=== PATIENT | male | born 1940 | race Caucasian/White ===

== ENCOUNTER 2023-09-26 21:08 | Emergency (ER) | payer OTHER, SELFPAY ==
[2023-09-26 21:12] VITALS: BP 164/80
--- NOTE | 2023-09-26 22:28 | ED.GENMED ---
History of Present Illness
<MAGDA Loyd - Last Filed: 09/26/23 23:35>
General
Chief Complaint: Skin Problem
Source: patient
Time Seen by Provider: 09/26/23 21:52
Travel History
Have you traveled to any high risk areas for coronavirus over the past 14 days?: Unable to Answer
Have you had any contact with someone who has COVID-19?: No
Do you have any symptoms of coronavirus? Fever > 100 degrees, chills, cough, shortness of breath, sore throat, loss of taste or smell, muscle aches, or headache?: No
History of Present Illness
History of Present Illness:
Pt is an 82 y/o M with a PMH of arthritis, afib, and HTN. Pt states he cut the sole of his left foot shaving down a callus with a foot file. The bleeding began 8 hrs ago and stopped approximately 1.5 hours ago. He notes he tried holding pressure but
'not for very long'. He denies pain, erythema, or warmth at the site. He states he takes one 325 mg aspirin daily and denies any other blood thinners. He denies knowledge of his last tetanus shot. Pt is a former smoker and does not drink alcohol.
Past History
<MAGDA Loyd - Last Filed: 09/26/23 23:35>
Past History
ED Past Medical History: Arrthythmia (atrial fibrillation), Asthma, COPD and HTN; Negative Valvular disease
ED Past Surgical History: Cardiac and Orthopedic (arthritis)
Patient has exhibited threatening behavior?: No
Social History
Tobacco: Former smoker
Alcohol: None
Drug: None
Personal:
Living: with family
Employment: Employed
Family History
Family History: Other (ICH)
Phy Exam
<MAGDA Loyd - Last Filed: 09/26/23 23:35>
General Physical Exam
General Presentation: well appearing and no apparent distress
General age: appears stated age
General Skin: warm
General Mental: alert
Cardiovascular Exam
Cardiovascular Exam: regular rate/rhythm, no edema, no gallop and normal peripheral pulses
Pulmonary Exam
Pulmonary Exam: lungs clear, no respiratory distress, no rales, no crackles, no rhonchi, no wheezing and no cough
Neurological Exam
Neurological Exam: alert, oriented x3 and speech normal
Skin Exam
Skin Exam: normal color, warm/dry, no rash and laceration (Approximately 1.5 cm laceration on plantar surface of left MTP joint.)
Psychiatric Exam
Psychiatric Exam: normal mood/affect
Course
<MAGDA Loyd - Last Filed: 09/26/23 23:35>
Orders/Labs/Results
Orders:
Orders
09/26/23 23:12
Tetanus/Diphth/Acelpertussis [Adacel] 0.5 ml IM .ONCE ONE
Vital Signs
Initial and Last Documented VS:
Initial Vital Signs
Temp Pulse Resp BP Pulse Ox
97.7 F 66 18 164/80 97
09/26/23 21:12 09/26/23 21:12 09/26/23 21:12 09/26/23 21:12 09/26/23 21:12
Last Documented Vital Signs
Temp Pulse Resp BP Pulse Ox
97.7 F 59 18 152/71 97
09/26/23 21:12 09/26/23 23:25 09/26/23 21:12 09/26/23 23:25 09/26/23 21:12
Tiffanielt;Neeraj Plata DO - Last Filed: 09/26/23 23:27>
Orders/Labs/Results
Orders:
Orders
09/26/23 23:12
Tetanus/Diphth/Acelpertussis [Adacel] 0.5 ml IM .ONCE ONE
Vital Signs
Initial and Last Documented VS:
Initial Vital Signs
Temp Pulse Resp BP Pulse Ox
97.7 F 66 18 164/80 97
09/26/23 21:12 09/26/23 21:12 09/26/23 21:12 09/26/23 21:12 09/26/23 21:12
Last Documented Vital Signs
Temp Pulse Resp BP Pulse Ox
97.7 F 59 18 152/71 97
09/26/23 21:12 09/26/23 23:25 09/26/23 21:12 09/26/23 23:25 09/26/23 21:12
<MAGDA Loyd - Last Filed: 09/26/23 23:35>
MDM/Problems Addressed
MDM/Problems Addressed:
Laceration on plantar surface of left foot (beneath 1st MTP joint).
Chronic conditions affecting care: DM, HTN, CAD, Arrhythmia, COPD and Asthma
<MAGDA Loyd - Last Filed: 09/26/23 23:35>
*Critical Care Note
Total Time (30-74mins, 75-104mins- exclusive of procedures): Not Applicable
ED Attending Note
<MAGDA Loyd - Last Filed: 09/26/23 23:35>
-
Portions of this chart may have been created with voice recognition software.� Occasional wrong word or��sound alike� substitutions may have occurred due to the inherent limitations of voice recognition software.
<Neeraj Plata DO - Last Filed: 09/26/23 23:27>
ED Attending Note
Patient seen and examined by attending physician: Yes
I performed the substantive portion of visit, reviewed & personally made and approve the management plan that is documented in note by myself or CARMELA.: Yes
ED Attending Note:
Pleasant 82-year-old male with bleeding from a callus that he shaved down. Patient came in because he could not stop the bleeding. Patient denies any other injury. Last tetanus status is unknown. Patient was seen in conjunction with the PA
student. I have reviewed and agree with the history and treatment plan presented. On my independent physical exam, patient is awake, alert, and oriented x3, no acute distress. No respiratory distress. No blood thinners. Bleeding has stopped.
Wound appeared clear. It was cleaned and a Band-Aid was applied. Patient got a tetanus shot and the wound was wrapped in gauze. Patient discharged in improved condition.
Discharge Plan
Departure
Patient Disposition: Home (Routine Discharge)
Date of Disposition: 09/26/23
Time of Disposition: 23:13
Patient with high blood pressure during this ER visit?: Yes
Condition: Good
Discharge Problem:
Abrasion foot/toe
Instructions: Wound Care (DC), Skin Abrasions (DC), BLOOD PRESSURE
Prescriptions:
No Action
testosterone 1 % (25 mg/2.5gram) Gel In Packet
1 packet transdermal DAILY
trazodone 50 mg Tablet
25 mg PO HS
tamsulosin [Flomax] 0.4 mg Capsule
0.4 mg PO DAILY
atorvastatin [Lipitor] 40 mg Tablet
40 mg PO DAILY
amiodarone 200 mg Tablet
200 mg PO QMWF
alprazolam [Xanax] 1 mg Tablet
0.5 mg PO HS
amiodarone 100 mg Tablet
100 mg PO SUTUTHSA
budesonide-formoterol [Symbicort] 80-4.5 mcg/actuation Hfa Aerosol Inhaler
1 inh INHALATION R BID
lisinopril 20 mg Tablet
20 mg PO DAILY
Referrals:
Kathrin Underwood DO [Family Provider] -
Activity Restrictions/Additional Instructions:
It was a pleasure meeting you and taking part in your care. We hope for your continued healing and wellness.
Please read discharge instructions in their entirety. However, they are for general education and may not describe your exact diagnosis at discharge. Information on your ER visit and medical conditions were discussed with you along with appropriate
follow up information...
If indicated, please take your medications as instructed and indicated on discharge paperwork.
Please schedule a follow up appointment as directed. Call to schedule an appointment
Please return to the emergency department with ANY change in, persisting, or worsening of symptoms. If any of your symptoms do not improve, or persist, or become more severe within 6-12 hours, please return to the emergency department for further
care.
Please return to the emergency department if you develop a headache, neck pain/stiffness, fever greater than 100.4F, chest pain, shortness of breath, persistent nausea, vomiting, slurred speech, difficulty walking, numbness/tingling, weakness, signs
of infection or any other symptoms that are worrisome to you.
If you have any questions or concerns please do not hesitate to call the Hospital at or E-mail me directly at [email or web address]
Interventions
Interventions:
*Risk Screen - Suicide Last Done: 09/26/23 21:12
*General Assessment Last Done: 09/26/23 22:02
*Neglect/Abuse Screening Last Done: 09/26/23 21:12
*ED COVID-19 Vaccine History Last Done: 09/26/23 22:02
*Nursing Disposition Last Done: 09/26/23 23:25
ED-Skin Assessment Last Done: 09/26/23 23:02
Discharge Date and Time
Discharge Date/Time: 09/26/23 23:26
[2023-09-26] MEDS: ADACEL 0.5 ML IM (23:19)
[2023-09-26 23:25] VITALS: BP 152/71
== END 2023-09-26 23:26 | disposition home or self-care (01) ==
LOC: EMR 21:08
PROVIDERS: EMERGENCY PHYSICIAN Student in an Organized Health Care Education/Training Program; FAMILY PHYSICIAN Family Medicine
DX: S90.812A Abrasion, left foot, initial encounter (principal); W45.8XXA Other foreign body or object entering through skin, initial encounter; I48.91 Unspecified atrial fibrillation; J44.89 Other specified chronic obstructive pulmonary disease; I10 Essential (primary) hypertension; I25.10 Atherosclerotic heart disease of native coronary artery without angina pectoris; E11.9 Type 2 diabetes mellitus without complications; M19.90 Unspecified osteoarthritis, unspecified site; Z79.82 Long term (current) use of aspirin; Z87.891 Personal history of nicotine dependence
CPT/HCPCS: 99282; 90471; 90715

== ENCOUNTER → 2024-02-06 11:43 | Outpatient (REF) | payer OTHER, SELFPAY | LOC: RAD 11:43 | PROVIDERS: ATTENDING PHYSICIAN Internal Medicine Cardiovascular Disease; FAMILY PHYSICIAN Family Medicine | DX: I48.0 Paroxysmal atrial fibrillation (principal); Z79.899 Other long term (current) drug therapy | CPT/HCPCS: 71046 ==

== ENCOUNTER 2024-10-11 09:57 | Emergency (ER) | payer OTHER, SELFPAY ==
[2024-10-11 10:14] VITALS: BP 146/78
[2024-10-11 11:47] VITALS: BMI 26.9
[2024-10-11 11:53] VITALS: BP 151/72
--- NOTE | 2024-10-11 12:01 | ED.GENMED ---
History of Present Illness
General
Chief Complaint: Fall
Source: patient
Exam Limitations: none
Time Seen by Provider: 10/11/24 10:45
Nursing documentation reviewed up to this point in time: agreed with
History of Present Illness
History of Present Illness:
83-year-old male past medical history of asthma, COPD, A-fib presenting to the emergency department today with concerns of left-sided lateral rib discomfort over the past 5 days after a trip hitting his left ribs on the edge of a table. Ongoing
discomfort since. Denies any chest pain or shortness of breath. Denies any head trauma or additional concerns. Not on blood thinners.
Past History
Past History
ED Past Medical History: Arrthythmia (atrial fibrillation), Asthma, COPD and HTN; Negative Valvular disease
ED Past Surgical History: Cardiac and Orthopedic (arthritis)
Patient has exhibited threatening behavior?: No
Social History
Tobacco: Former smoker
Alcohol: None
Drug: None
Personal:
Living: with family
Employment: Employed
Family History
Family History: Other (ICH)
Review of Systems
Review of Systems
Allergies reviewed?: Yes
All Other Systems: ROS reviewed and negative except as documented in HPI and ROS
Phy Exam
Physical Exam
Physical Exam:
GENERAL: Alert , in no apparent distress
EYE: pupils equal and reactive
NECK: Supple, no significant adenopathy.
ENT: o/p clr, mmm.
CARDIAC: Regular rate and rhythm .
LUNGS: Left lateral rib discomfort no overlying skin changes clear breath sounds bilaterally, no acute respiratory distress, no wheezes/rales/rhonchi
ABDOMEN: Soft, without focal tenderness, no r/g, no cvat
NEUROLOGICAL: Alert and oriented, no focal neuro deficits
SKIN: Warm and dry, skin intact.
MUSCULOSKELETAL: No edema, well perfused.
PSYCH: Normal and appropriate interaction.
Course
Orders/Labs/Results
Orders:
Orders
10/11/24 10:00
Ribs, Left 3 View W/PA Chest CR [CR Ribs-left 3 Vw W/pa Chest] Urgent
Comment:
Reason For Exam: fall
Vital Signs
Initial and Last Documented VS:
Initial Vital Signs
Temp Pulse Resp Pulse Ox
98.7 F 60 20 98
10/11/24 10:12 10/11/24 10:12 10/11/24 10:12 10/11/24 10:12
Last Documented Vital Signs
Temp Pulse Resp BP Pulse Ox
98.7 F 50 18 151/72 100
10/11/24 10:12 10/11/24 11:53 10/11/24 11:53 10/11/24 11:53 10/11/24 11:53
MDM/Problems Addressed
MDM/Problems Addressed:
83-year-old male presenting to the emergency department today with concerns of left lateral rib discomfort over the past 5 days after hitting his ribs from a ground-level mechanical fall. On arrival vital signs are normal lungs are clear heart
sounds normal x-ray without obvious lung abnormalities or obvious rib fracture. Patient with likely rib contusion plan for symptomatic treatment at home. Return precautions given.
*Critical Care Note
Total Time (30-74mins, 75-104mins- exclusive of procedures): Not Applicable
ED Attending Note
-
Portions of this chart may have been created with voice recognition software.� Occasional wrong word or��sound alike� substitutions may have occurred due to the inherent limitations of voice recognition software.
Discharge Plan
Departure
Patient Disposition: Home (Routine Discharge)
Date of Disposition: 10/11/24
Time of Disposition: 12:03
Patient with high blood pressure during this ER visit?: No
Condition: Good
Covid-19: Not Applicable
Discharge Problem:
Contusion of rib
Instructions: Rib injury in adults
Prescriptions:
New
lidocaine 4 % adhesive patch,medicated
1 patch topical DAILY PRN (Reason: Pain) Qty: 5 0RF
No Action
testosterone 1 % (25 mg/2.5gram) Gel In Packet
1 packet transdermal DAILY
trazodone 50 mg Tablet
25 mg PO HS
tamsulosin [Flomax] 0.4 mg Capsule
0.4 mg PO DAILY
atorvastatin [Lipitor] 40 mg Tablet
40 mg PO DAILY
amiodarone 200 mg Tablet
200 mg PO QMWF
alprazolam [Xanax] 1 mg Tablet
0.5 mg PO HS
amiodarone 100 mg Tablet
100 mg PO SUTUTHSA
budesonide-formoterol [Symbicort] 80-4.5 mcg/actuation Hfa Aerosol Inhaler
1 inh INHALATION R BID
lisinopril 20 mg Tablet
20 mg PO DAILY
Referrals:
Kathrin Underwood DO [Family Provider] -
Activity Restrictions/Additional Instructions:
You came to the emergency department today with concerns of rib discomfort. Here you had a reassuring assessment. Please try to control your pain and symptoms should improve over the next week or so. Return for any worsening, new or concerning
symptoms.
Interventions
Interventions:
*Risk Screen - Suicide Last Done: 10/11/24 10:14
*Neglect/Abuse Screening Last Done: 10/11/24 10:14
*ED- Fall Risk Assessment Last Done: 10/11/24 11:47
*ED COVID-19 Vaccine History Last Done: 10/11/24 11:47
ED-Musculoskeletal Assessment Last Done: 10/11/24 11:47
ED- Neurological Assessment Last Done: 10/11/24 11:47
ED-Skin Assessment Last Done: 10/11/24 11:47
Discharge Date and Time
Print Language: LIBERIAN
--- NOTE | 2024-10-11 12:26 | EDRN ---
Reviewed discharge instructions with patient. Verbalized understanding. Ambulated with steady gait to the lobby.
[2024-10-11 12:31] VITALS: BP 128/70
== END 2024-10-11 12:25 | disposition home or self-care (01) ==
LOC: EMR 09:57
PROVIDERS: EMERGENCY PHYSICIAN Emergency Medicine; FAMILY PHYSICIAN Family Medicine
DX: S20.212A Contusion of left front wall of thorax, initial encounter (principal); W19.XXXA Unspecified fall, initial encounter; J44.89 Other specified chronic obstructive pulmonary disease; Z87.891 Personal history of nicotine dependence
CPT/HCPCS: 99283; 71101

== ENCOUNTER 2025-02-26 00:08 | Inpatient (IN) | payer OTHER, SELFPAY ==
[2025-02-25 15:16] VITALS: BP 133/69
[2025-02-25 15:46] LABS: Hematocrit 34.1 % (39.0-52.0); Hemoglobin 11.9 g/dL (13.0-18.0); Mean Corp Hgb Conc. 34.9 g/dL (33.0-37.0); Mean Corpuscular Volume 88.6 fL (80.0-94.0); Nucleated Red Blood Cells % 0 % (-); Platelet Count 201 10^3/uL (130-400); Red Cell Dist. Width 13.2 % (11.5-14.5)
[2025-02-25 15:52] LABS: Blood Urea Nitrogen 18 mg/dl (9-20); Calcium 9.9 mg/dl (8.4-10.2); Carbon Dioxide 22 mmol/L (22-30); Chloride 98 mmol/L (98-107); Glucose 129 mg/dl (70-99); Potassium 4.3 mmol/L (3.5-5.1); Sodium 128 mmol/L (135-145); eGFR > 60.00
[2025-02-25 19:33] VITALS: BMI 25.6
[2025-02-25 19:38] VITALS: BP 132/77
[2025-02-25 20:47] LABS: Urine Character Clear (Clear)
[2025-02-25] MEDS: NSS 1000 IV (21:24)
--- NOTE | 2025-02-25 22:22 | ED.GENMED ---
History of Present Illness
General
Chief Complaint: Crisis Evaluation
Source: patient and other (friend)
Exam Limitations: none
Time Seen by Provider: 02/25/25 19:34
Nursing documentation reviewed up to this point in time: agreed with
History of Present Illness
History of Present Illness:
Patient to ED for eval of confusion, forgetfulness, depression. According to friend, patient was seen by PCP this AM for routine examine. Patient then met his friend for lunch. Friend reports that patient was confused, repeating self, verbalizing
sadness/depression. Friend called patients PCP. Office advised friend to bring patient to ED as they felt patient was confused during exam this AM. Denies fever/chills, recent illness. No new medications but he is unsure if he is taking current
medications. Friend does not feel patient is safe at home at this point.
Past History
Past History
ED Past Medical History: Arrthythmia (atrial fibrillation), Asthma, COPD and HTN; Negative Valvular disease
ED Past Surgical History: Cardiac and Orthopedic (arthritis)
Patient has exhibited threatening behavior?: No
Social History
Tobacco: Former smoker
Alcohol: None
Drug: None
Personal:
Living: with family
Employment: Employed
Family History
Family History: Other (ICH)
Review of Systems
Review of Systems
Allergies reviewed?: Yes
All Other Systems: ROS reviewed and negative except as documented in HPI and ROS
Constitutional: Reports fatigue
EENT: Reports no symptoms
Respiratory: Reports no symptoms
Cardiac: Reports no symptoms
ABD/GI: Reports no symptoms
: Reports no symptoms
Musculoskeletal: Reports no symptoms
Skin: Reports no symptoms
Neurological: Reports weakness and other (confusion)
Psychiatric: Reports depression
Phy Exam
General Physical Exam
General Presentation: well appearing and no apparent distress
General age: appears stated age
General Skin: warm and dry
General Habitus: normal
General Mental: alert
Cardiovascular Exam
Cardiovascular Exam: regular rate/rhythm and no edema
Pulmonary Exam
Pulmonary Exam: lungs clear, no respiratory distress and chest non tender
Gastrointestinal Exam
Gastrointestinal Exam: normal bowel sounds, non tender, soft, no organomegaly and non distended
Neurological Exam
Neurological Exam: alert, CN II-XII intact, no motor deficits, no sensory deficits, speech normal, normal gait and other (repeats self)
Musculoskeletal Exam
Musculoskeletal Exam: full ROM and neuro vasc intact
Skin Exam
Skin Exam: normal color, warm/dry and no rash
Psychiatric Exam
Psychiatric Exam: depressed
Course
Orders/Labs/Results
Orders:
Orders
02/25/25 15:29
Alcohol Urgent
Basic Metabolic Panel Urgent
Complete Blood Count/With Diff Urgent
02/25/25 19:52
CT Head W/o Iv Contrast Urgent
Comment:
Reason For Exam: altered mental status
02/25/25 20:30
Urinalysis Reflex To Culture Urgent
Date Specimen was Collected: 02/25/25
Time Specimen was Collected: 20:28
02/25/25 21:11
Add On - Microbiology Urgent
Tests Added?: urine drug abuse screen
02/25/25 21:12
0.9% Sodium Chloride 1000 ml [Nss] 1,000 ml IV BOLUS
02/25/25 23:38
Admit/Transfer Patient As Directed
Co-Sign Provider:
Level of Care: Inpatient admission
Assign to:: Telemetry
Physician / Group: gene solis
Diagnosis: Acute confusion likely symptomatic hyponatremia, history of depression
Reason for Telemetry: Arrhythmia
Date to Stop Telemetry: 02/28/25
Time to Stop Telemetry: 11:00
Reason for Hospitalization: Acute confusion likely symptomatic hyponatremia, history of depression
Expected length of stay greater than two midnights?: Yes
ELOS- Estimated Length of Stay in days: 4
I certify the patient meets the requirements for IP care: Yes
Code Status As Directed
Resuscitation Status: Full Code
02/25/25 23:39
Alcohol Urgent
BMP [Basic Metabolic Panel] Urgent
02/25/25 23:40
PRN Pain Medication Management As Directed
May give lesser potent ordered pain med per pt: Yes
preference::
Protocol:: Medication orders for pain may be administered in a
manner that supports deferring to patient preference
when the pt is:
- Requesting an ordered lesser potent pain medication.
Least to most potent pain medications are defined
as: acetaminophen < NSAID < tramadol < opioids
(morphine, oxycodone, hydromorphone).
- Requesting a lesser dose of the same medication IF
ORDERED.
- Requesting a less intrusive route of administration
if both routes are prescribed by the provider (PO <
IV).
02/28/25 11:00
DC Protocol for Telemetry ONCE
Abnormal Lab Results
02/25/25 02/25/25
15:29 23:39
RBC 3.85 L 10^6/uL
(4.70-6.10)
Hgb 11.9 L g/dL
(13.0-18.0)
Hct 34.1 L %
(39.0-52.0)
Absolute Lymphs (auto) 0.8 L 10^3/uL
(1.2-3.4)
Immature Gran % 0.6 H %
(0-0.5)
Neutrophils % 76.0 H %
(42.2-75.2)
Lymphocytes % 14.8 L %
(20.5-51.1)
Sodium 128 L mmol/L 129 L mmol/L
(135-145) (135-145)
Glucose 129 H mg/dl 116 H mg/dl
(70-99) (70-99)
02/25/25 15:29
02/25/25 23:39
Vital Signs
Initial and Last Documented VS:
Initial Vital Signs
Temp Pulse Resp BP Pulse Ox
98.7 F 80 18 133/69 96
02/25/25 15:16 02/25/25 15:16 02/25/25 15:16 02/25/25 15:16 02/25/25 15:16
Last Documented Vital Signs
Temp Pulse Resp BP Pulse Ox
98.4 F 72 18 147/74 98
02/26/25 00:06 02/26/25 00:06 02/26/25 00:06 02/26/25 00:06 02/26/25 00:06
*Radiology
Radiology exam reviewed: radiology read reviewed
*Pulse Oximetry
SaO2: 100
Oxygen Mode of Delivery: Room air
Patient hypoxic: no
*Critical Care Note
Total Time (30-74mins, 75-104mins- exclusive of procedures): Not Applicable
Update Note
Update Note:
Patient brought to ED by friend for confusion, weakness. He is cooperative, but repeating self. Admits to feeling depressed but denies wanting to hurt self. He is not taking any depression medications at this time. VSS, he is afebrile. Labs
reviewed. Na 128 noted. Treated for hyponatremia 1 year ago, thought to be related to his psych medications. ALl other labs stable. CT head neg for acute findings. Will admit to hospitalist for weakness, hyponatremia. Friend requesting case
management involvement as patient lives alone, concern for safety.
ED Attending Note
-
Portions of this chart may have been created with voice recognition software.� Occasional wrong word or��sound alike� substitutions may have occurred due to the inherent limitations of voice recognition software.
Discharge Plan
Departure
Patient Disposition: Admit
Date of Disposition: 02/25/25
Time of Disposition: 22:36
Presentation/result/management discussed w/ accepting MD/DO: Hospitalist
Condition: Fair
Covid-19: Not Applicable
Discharge Problem:
Weakness, Acute hyponatremia
Interventions
Interventions:
*Risk Screen - Suicide Last Done: 02/25/25 15:12
*General Assessment Last Done: 02/25/25 15:16
*ED- Fall Risk Assessment Last Done: 02/25/25 19:33
*ED COVID-19 Vaccine History Last Done: 02/25/25 19:33
ED-Psychological Assessment Last Done: 02/25/25 19:33
--- NOTE | 2025-02-25 23:11 | HPS.HSE ---
Family Physician
-
Family Physician: Kathrin Underwood
Chief Complaint
-
Acute confusion reported depression
History of Present Illness
84-year-old male sent by PCP due to confusion, forgetfulness, depression. The patient's friend Ed called his PCP due to patient being confused, repeating self verbalizes sadness and depression. The patient is currently Stating he had nausea today
he cannot remember who he was with he does not recall his friend being here in the ER he believes he drove himself to the hospital he is unsure of his medication list believes he is not taking medication. 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 His bedside nurse states at his friend is his therapist who drove him here to the ER for evaluation.he patient denies fever, chills, chest pain, palpitations, cough, shortness of breath, abdominal pain, nausea vomiting,
diarrhea, urinary symptoms.
Patient's past medical history of hyponatremia with confusion, A-fib, asthma, COPD, HTN, arthritis, former smoker, former drinker, former marijuana use
Medical History
Past Medical History
Past Medical History: Reports Other
Additional Past Medical History:
hyponatremia with confusion
A-fib
asthma
COPD
HTN
arthritis
former smoker
Alcohol use per prior chart
Marijuana use per prior chart
Past Surgical History: Reports Other
Additional Past Surgical History:
Left tympanoplasty
Hemorrhoidectomy
Hernia repair
Right TKA
Left TKA
Sinus polypectomy
Dental implants
Social History
Tobacco: Former Smoker
Drug: Marijuana
Personal: Single
Living: Alone
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
Family History
Family History: Not pertinent
Allergies / Home Medications
Allergies reflects when Allergies were last updated in [employer].
Home Medications with original date entered in [employer]
Allergy/Medication List:
Patient cannot recall medication list
Allergies
Allergy/AdvReac Type Severity Reaction Status Date / Time
No Known Allergies Allergy Verified 02/25/25 15:16
Home Medications
amiodarone 200 mg tablet 200 mg PO QMWF 11/11/22
atorvastatin 40 mg tablet (Lipitor) 40 mg PO DAILY 11/11/22
tamsulosin 0.4 mg capsule (Flomax) 0.4 mg PO DAILY 11/11/22
testosterone 1 % (25 mg/2.5 gram) transdermal gel packet 1 packet transdermal DAILY 11/11/22
trazodone 50 mg tablet 25 mg PO HS 11/11/22
alprazolam 1 mg tablet (Xanax) 0.5 mg PO BID 03/02/23
amiodarone 100 mg tablet 100 mg PO SUTUTHSA 03/02/23
budesonide-formoterol HFA 80 mcg-4.5 mcg/actuation aerosol inhaler (Symbicort) 1 inh inhalation R BID 03/02/23
lisinopril 20 mg tablet 20 mg PO DAILY 03/02/23
Review of Systems
-
History Source: Patient and Other (ER note per friend)
A 12 point ROS was completed and negative except as noted: Yes
Constitutional: Reports Other (Confusion); Denies Fever or Chills
EENT: Denies Sore Throat or Runny Nose
Respiratory: Denies Cough or Trouble Breathing
Cardiac: Denies Chest Pain, Diaphoresis, Palpitations or Syncope
Abdomen/GI: Reports Nausea; Denies Abdominal Pain, Vomiting, Diarrhea, Constipated or Bloody Stools
: Denies Dysuria, Frequency, Flank Pain or Incontinence
Musculoskeletal: Denies Joint Pain or Edema
Skin: Denies Itching or Rash
Neurological: Denies Dizzy, Headache or Weakness
Endocrine: Reports No Symptoms
Hematologic/Lymphatic: Reports No Symptoms
Psych: Reports Calm
Physical Exam
Vital Signs
Vital Signs
Temp Pulse Resp BP Pulse Ox
97.7 F 92 18 132/77 100
02/25/25 19:38 02/25/25 19:38 02/25/25 19:38 02/25/25 19:38 02/25/25 22:35
Physical Exam
General: Other (Confusion knows his name however does not recall what he did today his friend being here in the ER how he got here); No Pain, Fever or Chills
HEENT: NormoCephalic, Anicteric, Moist mucous membranes, PERRLA, Bladen Conjunctivae and No Ptosis
Respiratory: Clear; No Wheezes, Rales or Rhonchi
Cardiac: S1/S2 and Regular Rhythm; No Murmur, Rub, Gallop or Peripheral Edema
Breast: Deferred by me
GI: Soft, Non Tender, Non Distended, Normal Bowel Sounds and No Hepatosplenomegaly
Rectal: Deferred by Provider
Genito-urinary: Deferred by me
Musculoskeletal: No Clubbing, No Cyanosis and No Edema
Skin: Warm and Dry; No Rash or Jaundice
Neuro: Awake, Alert, Oriented (To name, year, day of the week but not today's events, history, medications, friend dropping him off), Cranial Nerves Intact and No Sensory Deficits; No Slurred Speech, Facial Droop, Tremors or Sedated
Psych: Calm
Laboratory Results
-
02/25/25 15:29
02/25/25 15:29
Impression/Plan
-
Impression/plan:
Admit to telemetry
#Acute encephalopathy possibly secondary to possible symptomatic Hyponatremia
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
NA 128 appears baseline for patient
UA negative
-IV NSS 1 L was given in ER
-Will check stat BMP if NA worse would start 3% hypertonic saline at 50 cc an hour to 50 cc bag
- Check UDS, alcohol
-
CT head: No acute intracranial abnormality
-
# Reported acute depression per friend
#History anxiety depression
- Patient denies being depressed
- Continue Xanax 0.5 mg twice daily
#History of reported TIA
Continue Lipitor 40 mg daily
#HTN
Hold lisinopril 20 mg daily
BP 132/77
#Paroxysmal A-fib
- Continue amiodarone
#COPD no acute exacerbation
#Former smoker
- Continue Symbicort
#Asthma no acute exacerbation
#BPH
- Continue Flomax
DVT prophylaxis
SCDs
Full code
--- NOTE | 2025-02-25 23:45 | W.PN.UPDATE ---
Update Note
Progress Note Update
This is an addendum to H&P written by Mary Zapien on 02/25/2025. �Patient seen and examined independently with [facility] DISP[facility].
84-year-old male past medical history of paroxysmal atrial fibrillation, hyponatremia previously attributed to SIADH/SSRI, anxiety/depression, BPH, alcohol use, presenting with confusion, forgetfulness and depression. �Friend reports he was
confused, repeating himself verbalizing sadness/depression. �Primary care evaluated him and told her to come to ER. �Not taking most of his medications except Xanax.
Patient very confused about the events of today. �He is unable to remember who he lives with and what he did. �He provides inconsistent stories. �He denies being depressed.
Vital signs normal.
Labs show sodium 128 stable from [address] in [address] head shows no acute abnormality.
Patient with severe confusion/memory impairment regarding the events of today concerning for symptomatic hyponatremia. �Last BMP 1530 showed sodium of 128. �Patient received IV fluids in ER. �Recheck BMP and will benefit from hypertonic saline if
sodium is worsened after fluids.
UDS and alcohol level pending.
Consider MRI brain.
[2025-02-26] VITALS (8 sets, daily range): BP systolic 137–152; BP diastolic 61–85; PULSE 73; BMI 26.2
[2025-02-26 00:21] LABS: Blood Urea Nitrogen 16 mg/dl (9-20); Calcium 9.4 mg/dl (8.4-10.2); Carbon Dioxide 23 mmol/L (22-30); Chloride 101 mmol/L (98-107); Estimated Creatinine Clearance 84 ml/min; Glucose 116 mg/dl (70-99); Sodium 129 mmol/L (135-145); eGFR > 60.00
--- NOTE | 2025-02-26 03:35 | PTCARENOTE ---
Pt received from ED via stretcher. Ambulated to bed independently w/o incident. Telemetry - SR w/PACs. AAOx2 (time), pleasantly confused, repetitive speech. Admission intake obtained from medical record as pt denies any/all PMH documented. Also
unable to verify home meds, pt denies taking any daily medications. States 'that sounds familiar' but unreliable historian. Full physical assessment documented. Oriented to surroundings and plan of care discussed. Bed alarm active for safety.
Call villegas w/in reach.
[2025-02-26 07:24] LABS: Hematocrit 33.8 % (39.0-52.0); Hemoglobin 11.7 g/dL (13.0-18.0); Mean Corp Hgb Conc. 34.6 g/dL (33.0-37.0); Mean Corpuscular Volume 89.2 fL (80.0-94.0); Nucleated Red Blood Cells % 0 % (-); Platelet Count 199 10^3/uL (130-400); Red Cell Dist. Width 13.1 % (11.5-14.5)
[2025-02-26] MEDS: SYMBICORT 80/4.5 MCG INHALER 1 PUFF INH ×2 (07:42→19:45)
[2025-02-26 07:59] LABS: ALT (SGPT) 30 U/L (0-50); AST (SGOT) 35 U/L (17-59); Albumin 4.2 g/dl (3.5-5.0); Alkaline Phosphatase 75 U/L (38-126); Blood Urea Nitrogen 13 mg/dl (9-20); Calcium 9.6 mg/dl (8.4-10.2); Carbon Dioxide 21 mmol/L (22-30); Chloride 102 mmol/L (98-107); Estimated Creatinine Clearance 81 ml/min; Glucose 118 mg/dl (70-99); HDL Cholesterol 79 mg/dl; LDL Cholesterol, Calculated 62 mg/dl; Potassium 4.0 mmol/L (3.5-5.1); Sodium 130 mmol/L (135-145); Total Protein 6.8 g/dl (6.3-8.2); Very Low Density Lipoprotein 8 mg/dl (0-30); eGFR > 60.00
[2025-02-26 08:25] LABS: TSH 1.62 uIU/ml (0.47-4.68)
--- NOTE | 2025-02-26 08:55 | W.PN.HOSP.TC ---
Today's Communication/Plan
-
MRI Brain ordered
Assessment / Plan
Assessment / Plan
84-year-old male past medical history of paroxysmal atrial fibrillation, hyponatremia previously attributed to SIADH/SSRI, anxiety/depression, BPH, alcohol use, presenting with confusion, forgetfulness and depression. �Friend reports he was
confused, repeating himself verbalizing sadness/depression. �Primary care evaluated him and told her to come to ER. �Not taking most of his medications except Xanax.
CT head: No acute intracranial abnormality
Acute Memory Loss
-etiology unclear, doubt from sodium
-patient able to hold logical conversation with me this morning but remains confused
-will obtain MRI Brain today
-neuro checks
-give aspirin now
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
NA 128 appears baseline for patient
-IV NSS 1 L was given in ER
-Na stable at 130 this morning
Reported acute depression per friend
History anxiety/ depression
- Patient this morning open to feeling lonely
- Continue Xanax 0.5 mg twice daily, he takes this at home
- will certainly need outpatient follow up
History of reported TIA
Continue Lipitor 40 mg daily
patient is not on aspirin or NOAC at home
#HTN
Hold lisinopril 20 mg daily
BP 132/77
#Paroxysmal A-fib
- Continue amiodarone
-patient is not on oral AC
#COPD no acute exacerbation
#Former smoker
- Continue Symbicort
#Asthma no acute exacerbation
#BPH
- Continue Flomax
DVT prophylaxis
SCDs
Full code
Anticipated Discharge: Within 24 hours
Subjective/Interval History
-
Date of Service: February 26, 2025
patient able to tell me he doesn't remember conversation from last night or waking up this morning
this is new for him
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
Objective Data
-
Labs:
Laboratory Results
02/25/25 02/26/25
23:39 07:11
WBC 5.4
Hgb 11.7 L
Hct 33.8 L
Plt Count 199
Sodium 129 L 130 L
Potassium 4.0
Chloride 101 102
Carbon Dioxide 23 21 L
BUN 16 13
Creatinine 0.7 0.7
Glucose 116 H 118 H
Calcium 9.4 9.6
Total Bilirubin 0.8
AST 35
ALT 30
Alkaline Phosphatase 75
Vital Signs:
Vital Signs
Temp Pulse Resp BP Pulse Ox
97.7 F 70 18 149/73 98
02/26/25 07:00 02/26/25 07:47 02/26/25 07:47 02/26/25 07:00 02/26/25 07:47
I&O
02/25/25 02/26/25 02/27/25
06:59 06:59 06:59
Intake Total 120 / 120
Output Total 400 / 400
Balance -280 / -280
Review of Systems
-
History Source: Patient
All other systems: Reviewed and negative
Physical Exam
-
General: No Apparent Distress
HEENT: PERRLA
Respiratory: Clear to Auscultation; Negative Wheezes
Cardiac: Regular Rhythm and S1/S2
GI: Nontender
Skin: Warm and Dry; Negative Rash
Neuro: AO x 3 and Other (no facial asymmetry, speech clear; AAO x 3, no pronator drift, 5/5 strength upper and lower extremities )
Psych: Calm
Data Reviewed
-
Diagnostic Radiology: Report Reviewed by me
Labs: Labs Reviewed by me
[2025-02-26] MEDS: FLOMAX 0.4 MG PO (09:40)
[2025-02-26] MEDS: PACERONE 200 MG PO (09:40)
[2025-02-26] MEDS: XANAX 0.5 MG PO ×2 (09:40→19:52)
[2025-02-26] MEDS: LIPITOR 40 MG PO (09:40)
[2025-02-26 10:28] LABS: Vitamin B12 690 pg/ml (239-931)
[2025-02-26] MEDS: LOW STRENGTH ASPIRIN 162 MG PO (10:54)
[2025-02-26] MEDS: TUMS CHEWABLE TABLET 200 MG PO ×2 (12:23→19:48)
--- NOTE | 2025-02-26 13:05 | PTOTSP ---
The patient demonstrated independence with ambulation and elevations, no strength or mobility deficits noted. Patient's primary deficit is his cognition. No acute PT needs at this time, will sign off.
--- NOTE | 2025-02-26 16:15 | PTOTSP ---
BCAT performed with score of 16/50 indicating Moderate to severe dementia. Global impairments noted in orientation, immediate/delayed verbal recall, attention, abstraction, language, executive function, visuospatial, delayed visual memory,
immediate/delayed story recall and story recognition.
Concern for sudden onset of confusion/global impairments.
[2025-02-27 03:23] VITALS: BP 135/65
[2025-02-27 07:00] VITALS: BP 152/83
[2025-02-27 07:43] LABS: Blood Urea Nitrogen 13 mg/dl (9-20); Calcium 9.5 mg/dl (8.4-10.2); Carbon Dioxide 24 mmol/L (22-30); Chloride 99 mmol/L (98-107); Estimated Creatinine Clearance 81 ml/min; Glucose 100 mg/dl (70-99); Potassium 4.3 mmol/L (3.5-5.1); Sodium 129 mmol/L (135-145); eGFR > 60.00
[2025-02-27] MEDS: SYMBICORT 80/4.5 MCG INHALER 1 PUFF INH ×2 (07:43→18:05)
--- NOTE | 2025-02-27 08:47 | W.PN.HOSP.TC ---
Today's Communication/Plan
-
will try to obtain more information from friend and PCP
awaiting MRI
Assessment / Plan
Assessment / Plan
84-year-old male past medical history of paroxysmal atrial fibrillation, hyponatremia previously attributed to SIADH/SSRI, anxiety/depression, BPH, alcohol use, presenting with confusion, forgetfulness and depression. �Friend reports he was
confused, repeating himself verbalizing sadness/depression. �Primary care evaluated him and told her to come to ER. �Not taking most of his medications except Xanax.
CT head: No acute intracranial abnormality
Acute Memory Loss versus progression of chronic cognitive impairment
-patient has no focal deficits on exam but friend brought him in for depression and confusion.. possible that patient's confusion related to depression although currently denies feeling depressed, denies SI. He is not an SSRI candidate 2/2
hyponatremia and takes Trazodone qhs. Wondering if he took an extra Xanax at home that resulted in presentation? Unclear how off baseline patient is. I called his brother who is not close with him. I obtained a friend's contact and will call
later today. I have also reached out to PCP via TT
-given possible acute nature, will obtain MRI
-neuro checks
-continue aspirin
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
-urine studies show SIADH
-Na 129 this AM
-will start salt tabs and repeat labs tomorrow AM
Reported acute depression per friend
History anxiety/ depression
- Patient this morning denying feeling depressed and asking when he can go home
- Continue Xanax 0.5 mg twice daily, he takes this at home
- will need outpatient follow up
History of reported TIA
Continue Lipitor 40 mg daily
patient is not on aspirin or NOAC at home
#HTN
Hold lisinopril 20 mg daily
BP 132/77
#Paroxysmal A-fib
- Continue amiodarone
-patient is not on oral AC
#COPD no acute exacerbation
#Former smoker
- Continue Symbicort
#Asthma no acute exacerbation
#BPH
- Continue Flomax
DVT prophylaxis
SCDs
Full code
Anticipated Discharge: Within 24 hours
Subjective/Interval History
-
Date of Service: February 27, 2025
still awaiting MRI
patient states he feels good this morning but he remains confused
Objective Data
-
Labs:
Laboratory Results
02/27/25
06:42
Sodium 129 L
Potassium 4.3
Chloride 99
Carbon Dioxide 24
BUN 13
Creatinine 0.7
Glucose 100 H
Calcium 9.5
Vital Signs:
Vital Signs
Temp Pulse Resp BP Pulse Ox
97.8 F 82 20 135/65 98
02/27/25 03:23 02/27/25 07:46 02/27/25 07:46 02/27/25 03:23 02/27/25 07:46
I&O
02/26/25 02/27/25 02/28/25
06:59 06:59 06:59
Intake Total 120 / 120 1020 / 1020
Output Total 400 / 400
Balance -280 / -280 1020 / 1020
Review of Systems
-
History Source: Patient
All other systems: Reviewed and negative
Physical Exam
-
General: No Apparent Distress
HEENT: PERRLA
Respiratory: Clear to Auscultation; Negative Wheezes
Cardiac: Regular Rhythm and S1/S2
GI: Nontender
Skin: Warm and Dry; Negative Rash
Neuro: AO x 3 and Other (no facial asymmetry, speech clear; AAO x 3, no pronator drift, 5/5 strength upper and lower extremities )
Psych: Calm
Data Reviewed
-
Diagnostic Radiology: Report Reviewed by me
Labs: Labs Reviewed by me
[2025-02-27] MEDS: LIPITOR 40 MG PO (08:48)
[2025-02-27] MEDS: FLOMAX 0.4 MG PO (08:48)
[2025-02-27] MEDS: XANAX 0.5 MG PO ×2 (08:48→22:16)
[2025-02-27] MEDS: SODIUM CHLORIDE 1 GRAM PO ×2 (08:48→20:07)
[2025-02-27] MEDS: PACERONE 100 MG PO (08:57)
--- NOTE | 2025-02-27 10:23 | CM ---
Reviewed the chart notes and spoke with the patient at the bedside. The patient resides alone in a second floor apartment with six steps to enter. The patient reports no DME/VN/SNF in the past. The patient confirmed his pharmacy of choice is [facility]. CM continues to be available to patient/family and is monitoring medical plan for needs at discharge.
Plan: Discharge to home when medically stable. No needs identified at this time. PT no needs. OT recommends outpatient OT.
[2025-02-27 11:10] VITALS: BP 152/70
--- NOTE | 2025-02-27 12:57 | W.PN.UPDATE ---
Update Note
Progress Note Update
I was able to talk to patient's friend Bora, who reports that on Monday patient called him because he was upset he was unable to find his Xanax that he takes twice a day. Possible that benzodiazepine withdrawal led him to come to the emergency room.
I may need to prescribe Xanax on DC, plan to taper down to 0.25mg daily (discussed briefly with psychiatry).
Patient's friend, Bora, reports intermittent memory loss. Patient goes to work [place] the corner from his [facility] apartment. Takes his own medications.
Will proceed with MRI given story remains unclear and patient had an abrupt change causing him to come to the ER.
[2025-02-27 15:00] VITALS: BP 118/87
[2025-02-27 19:30] VITALS: BP 157/85
[2025-02-27 20:00] VITALS: BP 157/85
[2025-02-27] MEDS: TUMS CHEWABLE TABLET 200 MG PO (20:07)
[2025-02-27] MEDS: FLUSH (NSS) 1 FLUSH IV (20:08)
[2025-02-28 03:31] VITALS: BP 147/61
[2025-02-28 07:00] VITALS: BP 151/85
[2025-02-28 07:02] LABS: Blood Urea Nitrogen 13 mg/dl (9-20); Calcium 8.9 mg/dl (8.4-10.2); Carbon Dioxide 22 mmol/L (22-30); Chloride 97 mmol/L (98-107); Estimated Creatinine Clearance 81 ml/min; Glucose 98 mg/dl (70-99); Potassium 4.0 mmol/L (3.5-5.1); Sodium 126 mmol/L (135-145); eGFR > 60.00
[2025-02-28] MEDS: SYMBICORT 80/4.5 MCG INHALER 1 PUFF INH ×2 (07:30→18:27)
--- NOTE | 2025-02-28 08:15 | W.PN.HOSP.TC ---
Addendum entered and electronically signed by Ely Penn MD 02/28/25 15:41:
Patient will need one week script on DC to avoid another withdrawal.
Addendum entered and electronically signed by Ely Penn MD 02/28/25 15:39:
I was able to speak with RN in Dr. Underwood's office who sent patient to ER earlier this week. She states that patient was reporting he couldn't find his Xanax. They will make sure to call patient on Monday to make sure he has a follow up appointment
with a provider next week. And they likely refill Xanax prescription as he seems to have lost his recent prescription.
Original Note:
Today's Communication/Plan
-
continue fluid restriction, Nephrology consult
decrease Xanax dosing further
CM consult in for VN
left message for PCP, will call office today
brother updated. They do not talk often but brother plans to reach out.
Assessment / Plan
Assessment / Plan
84-year-old male past medical history of paroxysmal atrial fibrillation, hyponatremia previously attributed to SIADH/SSRI, anxiety/depression, BPH, alcohol use, presenting with confusion, forgetfulness and depression. �ER notes report patient came
with a friend but patient and friend, Bora, who speaks to patient every day states he came on his own. Per Bora, patient was stating he was unable to find his Xanax prior to coming in.
CT head 02/25/25: No acute intracranial abnormality
MRI 02/27/25
IMPRESSION:
No acute intracranial abnormality noted. Chronic senescent changes.
Acute Anxiety leading to confusion
-I suspect presentation secondary to severe anxiety in setting of not being able to find Xanax prescription. I received this information from patient's friend, Bora Pereyra (phone # [phone]), on our conversation on 02/27. Bora reports that patient
has had increasing memory loss. They speak every day but Bora lives in the [facility].
-MRI obtained without acute abnormality
-patient is not an SSRI candidate 2/2 hyponatremia
-patient reports only taking 1/2 Xanax pill at home occasionally. I started titration yesterday and will titrate further to 0.25mg PO BID with recommendations to continue titration as outpatient
Chronic Memory Loss, likely dementia
-per my discussion with Bora, this is a chronic issue likely exacerbated by anxiety as above and possibly by lower Na (see below)
-patient lives alone. I discussed case with CM, we can get VN
-patient does not have family that lives close by (brother lives in [place] and they are not close). I discussed with Bora, that patient will benefit from having more people check in on him once discharged.
-I left a message for PCP on TT and will call office today
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
-urine studies show SIADH
-salt tabs given for Na 129 on 02/27, but unfortunately sodium down to 126 this AM
-continue fluid restriction
-Nephrology consult
History of reported TIA
Continue Lipitor 40 mg daily
patient is not on aspirin or NOAC at home
#HTN
Hold lisinopril 20 mg daily
BP 132/77
#Paroxysmal A-fib
- Continue amiodarone
-patient is not on oral AC
#COPD no acute exacerbation
#Former smoker
- Continue Symbicort
#Asthma no acute exacerbation
#BPH
- Continue Flomax
DVT prophylaxis
SCDs
Full code
51 minutes spent on patient care
Anticipated Discharge: 24 - 48 hours
Subjective/Interval History
-
Date of Service: February 28, 2025
patient states he is feeling a lot better than yesterday
he was hoping to go home
Objective Data
-
Labs:
Laboratory Results
02/28/25
05:22
Sodium 126 L
Potassium 4.0
Chloride 97 L
Carbon Dioxide 22
BUN 13
Creatinine 0.7
Glucose 98
Calcium 8.9
Vital Signs:
Vital Signs
Temp Pulse Resp BP Pulse Ox
98.3 F 66 18 147/61 97
02/28/25 03:31 02/28/25 07:32 02/28/25 07:32 02/28/25 03:31 02/28/25 07:32
I&O
02/27/25 02/28/25 03/01/25
06:59 06:59 06:59
Intake Total 1020 / 1020 1680 / 1680
Output Total 850 / 850
Balance 1020 / 1020 830 / 830
Review of Systems
-
History Source: Patient
All other systems: Reviewed and negative
Physical Exam
-
General: No Apparent Distress
HEENT: PERRLA
Respiratory: Clear to Auscultation; Negative Wheezes
Cardiac: Regular Rhythm and S1/S2
GI: Nontender
Skin: Warm and Dry; Negative Rash
Neuro: AO x 3 and Other (no facial asymmetry, speech clear; AAO x 3, no pronator drift, 5/5 strength upper and lower extremities )
Psych: Calm
Data Reviewed
-
Diagnostic Radiology: Report Reviewed by me
Labs: Labs Reviewed by me
[2025-02-28] MEDS: LIPITOR 40 MG PO (08:41)
[2025-02-28] MEDS: XANAX 0.25 MG PO ×2 (08:41→21:02)
[2025-02-28] MEDS: FLOMAX 0.4 MG PO (08:41)
[2025-02-28] MEDS: PACERONE 200 MG PO (08:43)
[2025-02-28] MEDS: SODIUM CHLORIDE PO (08:47)
--- NOTE | 2025-02-28 08:50 | W.CON.NEPH ---
Consultation
-
Date/Time Consultation Requested: 02/28/2025 8:30 AM
Date/Time Consultation Performed: 02/28/2025 8:50 AM
Requesting Provider: Dr. Penn
Performing Provider: Dr. Crane
Reason for Consultation: Hyponatremia
Medical History
-
Chief Complaint: Hyponatremia
History of Present Illness:
The patient is an 84-year-old male with a past medical history of chronic hyponatremia. The patient has a history of hypertension and has been maintained on lisinopril. He has a history of atrial fibrillation and is chronically maintained on
amiodarone. He has a significant history of anxiety maintained on trazodone and Xanax. The patient was sent to the emergency room due to increasing confusion and depression at the direction of his PCP. Nephrology was consulted for hyponatremia
with a serum sodium level of 126.
Past Medical History
hyponatremia with confusion
A-fib
asthma
COPD
HTN
arthritis
former smoker
Alcohol use per prior chart
Marijuana use per prior chart
Left tympanoplasty
Hemorrhoidectomy
Hernia repair
Right TKA
Left TKA
Sinus polypectomy
Dental implants
Social History
Tobacco: Former Smoker
Alcohol: Former
Drug: Marijuana
Family History
Family History: Not Pertinent
Allergies / Home Medications
Allergy/AdvReac Type Severity Reaction Status Date / Time
No Known Allergies Allergy Verified 02/25/25 15:16
�Medication �Instructions �Recorded �Confirmed �Type
amiodarone 200 mg tablet 200 mg PO QMWF Arrhythmia 11/11/22 02/25/25 History
atorvastatin 40 mg tablet (Lipitor) 40 mg PO DAILY High Cholesterol 11/11/22 02/25/25 History
tamsulosin 0.4 mg capsule (Flomax) 0.4 mg PO DAILY Urinary Issue 11/11/22 02/25/25 History
testosterone 1 % (25 mg/2.5 gram) 1 packet transdermal DAILY 11/11/22 02/25/25 History
transdermal gel packet
trazodone 50 mg tablet 25 mg PO HS Sleep 11/11/22 02/25/25 History
alprazolam 1 mg tablet (Xanax) 0.5 mg PO BID Mental Health/Anxiety 03/02/23 02/25/25 History
amiodarone 100 mg tablet 100 mg PO SUTUTHSA 03/02/23 02/25/25 History
budesonide-formoterol HFA 80 1 inh inhalation R BID 03/02/23 02/25/25 History
mcg-4.5 mcg/actuation aerosol Lung/Breathing Issues
inhaler (Symbicort)
lisinopril 20 mg tablet 20 mg PO DAILY Blood Pressure 03/02/23 02/25/25 History
Review of Systems
-
History Source: Patient
All other systems: Negative unless noted
Respiratory: No Symptoms
Cardiac: No Symptoms
Neurological: Other (Confusion, memory loss)
Physical Exam
Vital Signs
Vital Signs
Temp Pulse Resp BP Pulse Ox
98.3 F 68 18 151/85 97
02/28/25 03:31 02/28/25 08:43 02/28/25 07:32 02/28/25 08:43 02/28/25 07:32
Lab Results
02/26/25 07:11
02/28/25 05:22
WBC 5.4 10^3/uL (4.8-10.8) 02/26/25 07:11
RBC 3.79 10^6/uL (4.70-6.10) L 02/26/25 07:11
Hgb 11.7 g/dL (13.0-18.0) L 02/26/25 07:11
Hct 33.8 % (39.0-52.0) L 02/26/25 07:11
Plt Count 199 10^3/uL (130-400) 02/26/25 07:11
Sodium 126 mmol/L (135-145) L 02/28/25 05:22
Potassium 4.0 mmol/L (3.5-5.1) 02/28/25 05:22
Chloride 97 mmol/L (98-107) L 02/28/25 05:22
Carbon Dioxide 22 mmol/L (22-30) 02/28/25 05:22
BUN 13 mg/dl (9-20) 02/28/25 05:22
Creatinine 0.7 mg/dL (0.7-1.3) 02/28/25 05:22
eGFR > 60.00 02/28/25 05:22
Glucose 98 mg/dl (70-99) 02/28/25 05:22
Calcium 8.9 mg/dl (8.4-10.2) 02/28/25 05:22
Albumin 4.2 g/dl (3.5-5.0) 02/26/25 07:11
Physical Exam
General: AOx3, Nontoxic , NAD
HEENT: PERRL, EOMI, Anicteric, Conjunctivae Clear, Ear/Nose Intact, Hearing Normal, Oropharynx Clear/Moist, Dentition Intact, Facial Symmetry, Neck Supple, Neck: Trachea Midline, No JVD and No Thyromegaly, no Bruits
Respiratory: Clear to auscultation bilaterally with normal lung excursion
Cardiac: S1/S2 and Regular Rate/Rhythm
Breast: Deferred by me
Abdomen: Soft, Nontender, Nondistended, Normal Bowel Sounds and No Hepatosplenomegaly
Rectal: Deferred by Provider
Genito-urinary: No Costovertebral Tenderness
Extremities: No Clubbing, No Cyanosis and No Edema
Skin: No Rash or open lesions
Neuro: Nonfocal/Grossly Intact, CN II-XII (Intact) and Strength (Musculoskeletal exam 5 out of 5 both upper and lower extremities)
Hematologic/Lymphatic: No Cervical Lymphadenopathy, No Submandibular Lymphadenopathy and No Supraclavicular Lymphadenopathy
Psych: Mood/afflect pleasant, Insight/judgement good and Appropriate, has difficulty recalling specific details
Vascular: plus 2 pedal and radial pulses
Data Reviewed
-
Radiology: Report Reviewed by me (Chest x-ray personally reviewed notes hyperinflated lung da sil[place] without pneumonic process or congestive heart failure no effusions calcified aortic knob)
MRI: Report Reviewed by me (MRI of head reviewed: No acute findings no hemorrhage no evidence of stroke chronic senescent change)
Labs: Labs Reviewed by me (BMP CBC)
Old Records: Reviewed (Reviewed previous nephrology consult Tatian and discharge summary from 11/11/2022 when patient was admitted for hyponatremia: SIADH and SSRI)
Assessment/Plan
-
Impression:
Acute on chronic euvolemic hyponatremia (126)
Change of mental status
History of depression and anxiety
History of atrial fibrillation
History of hypertension
History of COPD
BPH
Plan:
Hyponatremia:
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
- Maintain fluid restriction and salt tablet
- I will provide 7.5 mg of Samsca
HTN:
- Maintain lisinopril
Change of mental status
- Given chronic hyponatremia and serum sodium on presentation of 128, I doubt his change of mental status is due to hyponatremia
- MRI and CT without notable findings
- TSH within normal limits
- Alcohol negative on tox screen
[2025-02-28 11:00] VITALS: BP 153/75
[2025-02-28] MEDS: SAMSCA 7.5 MG PO (11:58)
[2025-02-28 15:00] VITALS: BP 150/73
--- NOTE | 2025-02-28 15:04 | CM ---
Reviewed the chart notes and spoke with the patient at the bedside. IMM reviewed. The patient declines VN at this time. CM continues to be available to patient/family and is monitoring medical plan for needs at discharge.
Plan: Discharge to home when medically stable. No needs identified at this time.
[2025-02-28] MEDS: SODIUM CHLORIDE 1 GRAM PO (19:21)
[2025-02-28 19:49] VITALS: BP 153/79
[2025-02-28 23:05] VITALS: BP 140/64
[2025-03-01] VITALS (10 sets, daily range): BP systolic 106–160; BP diastolic 50–98
--- NOTE | 2025-03-01 07:06 | W.PN.HOSP.TC ---
Today's Communication/Plan
-
discharge
Assessment / Plan
Assessment / Plan
Physical Exam
General: No acute distress, appears comfortable at this time
HEENT: PERRLA EOMI atraumatic Normocecphalic
Respiratory: Clear to Auscultation; Negative Wheezes
Cardiac: Regular Rhythm and S1/S2
GI: Nontender, soft, bowel sounds present
Skin: Warm and Dry; Negative Rash
Neuro: AO x 3 conversant coherent some short term memory issues noted
Psych: Calm
84M history paroxysmal atrial fibrillation, hyponatremia previously attributed to SIADH/SSRI, anxiety/depression, BPH, alcohol use, presented w confusion, forgetfulness and depression. �ER noted patient came with a friend, Bora. However, Bora who
speaks to patient every day states pt came on his own. Per Bora, patient was stating he was unable to find his Xanax prior to coming in.
CT head 02/25/25: No acute intracranial abnormality
MRI 02/27/25
IMPRESSION:
No acute intracranial abnormality noted. Chronic senescent changes.
Acute Anxiety leading to confusion
-Suspect secondary to severe anxiety in setting of not being able to find Xanax prescription. Dr Penn received information from patient's friend, Bora Roddy (phone # [phone]) who reports that patient has had increasing memory loss. They speak
every day but Bora lives in the [facility].
-MRI obtained without acute abnormality
-patient is not an SSRI candidate 2/2 hyponatremia
-Cont Xanax 0.25mg PO BID
Chronic Memory Loss, likely dementia
-per Dr Penn discussion with Bora, this is a chronic issue likely exacerbated by anxiety as above and possibly by lower Na (see below)
-patient lives alone. PT appreciated no skilled needs. OT noted significant cognitive impairment, patient declined VN, AOX3 at capacity to make his own medical decisions
-patient does not have family that lives close by (brother lives in [place] and they are not close). Dr Penn discussed with Bora, that patient will benefit from having more people check in on him once discharged.
-Discussed with patient need to avoid driving at this time and follow up with primary care provider for clearance to resume driving. After some repetition, patient was able to verbalize his understanding to avoid driving and willingness to comply
with recommendations. Patient arranged his own transportation for discharge with friends and also verbalized plan to have friends transport his vehicle home for him
-Medically stable for discharge home with outpatient follow up recommendations.
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
-urine studies show SIADH
-salt tabs given for Na 129 on 02/27, but unfortunately sodium down to 126 this AM
-continue fluid restriction
-Nephrology consult appreciated, hyponatremia resolved with
History of reported TIA
Continue Lipitor 40 mg daily
patient is not on aspirin or NOAC at home
#HTN
Hold lisinopril 20 mg daily
BP 132/77
#Paroxysmal A-fib
- Continue amiodarone
-patient is not on oral AC
#COPD no acute exacerbation
#Former smoker
- Continue Symbicort
#Asthma no acute exacerbation
#BPH
- Continue Flomax
DVT prophylaxis
SCDs
Full code
discussed with patient and patient's brother Shahram
Total Time Preparing Discharge __40 minutes including examination of the patient, summary of the hospital stay, instructions for continuing care to all relevant caregivers; and preparation of discharge records, prescriptions, and referral
forms if necessary.
Anticipated Discharge: Today
Subjective/Interval History
-
Date of Service: March 01, 2025
Seen and examined at bedside this morning, in no acute distress, sitting up comfortably in chair. Overall reports feeling well. AOx3 conversant coherent. Denies new acute issues. Eager to go home
Objective Data
-
Labs:
Laboratory Results
03/01/25
06:00
Sodium Pending
Potassium Pending
Chloride Pending
Carbon Dioxide Pending
BUN Pending
Creatinine Pending
Glucose Pending
Calcium Pending
Vital Signs:
Vital Signs
Temp Pulse Resp BP Pulse Ox
98.2 F 70 16 135/68 98
03/01/25 03:37 03/01/25 03:37 03/01/25 03:37 03/01/25 03:37 03/01/25 03:37
I&O
02/28/25 03/01/25 03/02/25
06:59 06:59 06:59
Intake Total 1680 / 1680 840 / 840
Output Total 850 / 850 250 / 250
Balance 830 / 830 590 / 590
[2025-03-01] MEDS: SYMBICORT 80/4.5 MCG INHALER 1 PUFF INH ×2 (07:40→20:29)
[2025-03-01] MEDS: FLOMAX 0.4 MG PO (07:56)
[2025-03-01] MEDS: SODIUM CHLORIDE 1 GRAM PO ×2 (07:56→20:56)
[2025-03-01] MEDS: LIPITOR 40 MG PO (07:56)
[2025-03-01] MEDS: XANAX 0.25 MG PO (07:56)
[2025-03-01] MEDS: PACERONE 100 MG PO (08:18)
[2025-03-01 09:23] LABS: Blood Urea Nitrogen 13 mg/dl (9-20); Calcium 9.4 mg/dl (8.4-10.2); Carbon Dioxide 21 mmol/L (22-30); Chloride 103 mmol/L (98-107); Estimated Creatinine Clearance 81 ml/min; Glucose 115 mg/dl (70-99); Potassium 4.1 mmol/L (3.5-5.1); Sodium 131 mmol/L (135-145); eGFR > 60.00
--- NOTE | 2025-03-01 09:52 | W.PN.NEPH.PH ---
Today's Communication / Plan
-
stable for discharge on 48 oz FR
Needs BMP sent to PCP next week for follow-up
Assessment/Plan
-
Impression:
Acute on chronic euvolemic hyponatremia (126)
Change of mental status
History of depression and anxiety
History of atrial fibrillation
History of hypertension
History of COPD
BPH
Plan:
Hyponatremia:
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
- Maintain fluid restriction and salt tablet
- s/p 7.5 mg of Samsca on 02/28, sodium up to 131
-can discharge on 48oz fluid restriciton
-needs bmp to primary next week
HTN:
- Maintain lisinopril
Change of mental status
- Given chronic hyponatremia and serum sodium on presentation of 128, I doubt his change of mental status is due to hyponatremia
- MRI and CT without notable findings
- TSH within normal limits
- Alcohol negative on tox screen
-
-
Date of Service: March 01, 2025
CC / HPI / ROS
-
Chief Complaint:
Hyponatremia
History of Present Illness:
Blood pressure controlled on lisinopril
Serum sodium up to 131 status post Samsca administration
Review of Systems:
Nonoliguric
No chest pain or shortness of breath
no fevers
Labs
-
Labs:
WBC 5.4 10^3/uL (4.8-10.8) 02/26/25 07:11
RBC 3.79 10^6/uL (4.70-6.10) L 02/26/25 07:11
Hgb 11.7 g/dL (13.0-18.0) L 02/26/25 07:11
Hct 33.8 % (39.0-52.0) L 02/26/25 07:11
Plt Count 199 10^3/uL (130-400) 02/26/25 07:11
Sodium 131 mmol/L (135-145) L 03/01/25 07:42
Potassium 4.1 mmol/L (3.5-5.1) 03/01/25 07:42
Chloride 103 mmol/L (98-107) 03/01/25 07:42
Carbon Dioxide 21 mmol/L (22-30) L 03/01/25 07:42
BUN 13 mg/dl (9-20) 03/01/25 07:42
Creatinine 0.7 mg/dL (0.7-1.3) 03/01/25 07:42
eGFR > 60.00 03/01/25 07:42
Glucose 115 mg/dl (70-99) H 03/01/25 07:42
Calcium 9.4 mg/dl (8.4-10.2) 03/01/25 07:42
Albumin 4.2 g/dl (3.5-5.0) 02/26/25 07:11
Physical Exam
-
Vital Signs:
Vital Signs
Temp Pulse Resp BP Pulse Ox
98.4 F 72 16 160/80 97
03/01/25 07:00 03/01/25 07:44 03/01/25 07:44 03/01/25 07:00 03/01/25 07:44
Cardiovascular:: Regular rate and rhythm
Respiratory:: Bilateral: Coarse
Abdomen:: Nontender and Soft
Bowel Sounds:: Normal
Extremity Edema:: None: Bilateral:
Oneill Catheter: No
--- NOTE | 2025-03-01 12:29 | CM ---
Addendum entered by Lali Ferrara 03/01/25 16:46:
Discharge was cancelled; transferred to IMU
Original Note:
Met with patient at bedside; in the process of finding transport home
Plan: Discharge to Home; per PT no skilled PT needed
--- NOTE | 2025-03-01 13:07 | PTCARENOTE ---
Patient confused to place. Patient is easily reoriented, but quickly forgets. Patient is very [place], [employer] batteries are . Patient is able to follow commands, OOB with a steady gait, needs direction to bathroom each time. Patient tolerated 100 of
meals. Patient is eager to go home, his car is in the parking lot. Patient instructed on 'no driving' at present. Patient verbalized understanding and is calling friends to pick him up from the hospital.
[2025-03-01 15:09] LABS: Glucose - Point of Care 165 mg/dl (70-99)
--- NOTE | 2025-03-01 15:15 | W.DCSUMMARY ---
Discharge Summary
Discharge Data
Date of Admission: 02/26/25
Date of Discharge: 03/01/25
-
Pending Results: No
Discharge Plan
-
Patient Disposition: Home (Routine Discharge)
Discharge Diagnosis/Procedures: Anxiety, Confusion, Hyponatremia
Benzodiazepine withdrawal
Cognitive impairment, likely Dementia
Condition: Fair
Diet: Regular and Restrict fluids to 48 oz
Activity: As tolerated
Driving Restrictions: No driving
Bathing Restrictions: None
Blood Work: BMP in 1 week results to be forwarded to primary care provider. Script provided to facilitate
Other Services: OT
Activity Restrictions/Additional Instructions:
Follow up with primary care provider in less than 1 week of discharge.
Xanax has been tapered to 0.25 mg twice a day due to concern benzo dependence and benzo influence on cognitive impairment.
Please take medications as prescribed/recommended and follow up with primary care provider and/or other healthcare provider involved in your care for refills and/or further adjustment to your medication regimen as necessary.
Referrals:
Kathrin Underwood DO [Family Provider, Family Practice] - in less than 1 week
Additional Discharge Medication Instructions: You are given a one week prescription Xanax - do not take more than 0.25mg (1/2 tablet) twice a day.
Prescriptions:
New
alprazolam 0.25 mg Tablet
0.25 mg PO BID Qty: 14 0RF
Continued
testosterone 1 % (25 mg/2.5gram) Gel In Packet
1 packet transdermal DAILY
trazodone 50 mg Tablet
25 mg PO HS
tamsulosin [Flomax] 0.4 mg Capsule
0.4 mg PO DAILY
atorvastatin [Lipitor] 40 mg Tablet
40 mg PO DAILY
amiodarone 200 mg Tablet
200 mg PO QMWF
amiodarone 100 mg Tablet
100 mg PO SUTUTHSA
budesonide-formoterol [Symbicort] 80-4.5 mcg/actuation Hfa Aerosol Inhaler
1 inh INHALATION R BID
lisinopril 20 mg Tablet
20 mg PO DAILY
Discontinued
alprazolam [Xanax] 1 mg Tablet
0.5 mg PO BID
Rx Instructions:
Patient believes he is taking it twice a day
Discharge Orders:
Discharge Patient (As Directed); Ordered 03/01/25
Ordered By: Roxana Sosa
Discharge Date and Time
Print Language: TAMAZIGHT
[2025-03-01] MEDS: VALIUM INJECTION 5 MG IV ×2 (15:30→16:04)
--- NOTE | 2025-03-01 15:32 | RR ---
A Rapid Response was called on this patient, please see Rapid Response form.
--- NOTE | 2025-03-01 15:35 | W.PN.UPDATE ---
Addendum entered and electronically signed by Roxana Sosa MD 03/01/25 19:25:
Likely benzo withdrawal sz's
will hold off on EEG for now
new ativan regimen 0.75 mg TID should prevent re-occurrence
would consult Neurology and re-order EEG if seizures re-occur despite new regimen
Addendum entered and electronically signed by Roxana Sosa MD 03/01/25 18:22:
cont hold home Trazodone 25 mg HS
Addendum entered and electronically signed by Roxana Sosa MD 03/01/25 16:49:
Patient likely had 3 seizures today.
1st sz unwitnessed, found unresponsive in chair prompting rapid response
2nd sz witnessed during rapid response aborted with IV valium 5mg
3rd sz witnessed following transfer to IMU also aborted w/ IV valium 5 mg
Addendum entered and electronically signed by Roxana Sosa MD 03/01/25 16:47:
correction 0.75 mg Ativan TID w/ holding parameters for sedation
Addendum entered and electronically signed by Roxana Sosa MD 03/01/25 16:35:
Patient had second sz following transfer to IMU 2min aborted with 2nd IV Valium 5 mg dose (received total 10 mg today)
Review of PDMP notes patient on PO ativan 1 mg TID at home
Xanax switched to PO ativan 0.5 mg TID for now.
Original Note:
Update Note
Progress Note Update
Rapid response unresponsive sitting in chair
Woke up in transfer back to bed, no memory of passing out, confused, developed witnessed seizure during rapid response generalized tonic clonic foaming at mouth.
Sz aborted with once Valium IV 5 mg (IV ativan unavailable).
transferred to IMU for closer monitoring
Xanax 0.25 mg BID increased to TID
sz fall precautions
EEG
Discharge canceled, patient and patient's brother Shahram updated
Appreciate RN and Rapid Response team.
--- NOTE | 2025-03-01 15:36 | PTCARENOTE ---
Patient found slumped over in chair, diaphoretic, eyes open, looking upward, unresponsive to verbal, tactile, and painful stimuli, and incontinent. Rapid response called. Patient started responding to verbal stimuli, speech was slow and garbled.
Patient was able to follow commands, face & smile symmetrical. 30 minutes later RN & RR team witnessed patient having a seizure. Physician notified and at bedside. IV Valium 5mg ordered and given.
[2025-03-01 15:47] LABS: INR 1.11; PT 14.6 Sec (11.4-14.6)
[2025-03-01 15:48] LABS: APTT 24.0 Sec (23.4-35.0); Hematocrit 41.3 % (39.0-52.0); Hemoglobin 13.9 g/dL (13.0-18.0); Mean Corp Hgb Conc. 33.7 g/dL (33.0-37.0); Mean Corpuscular Volume 92.0 fL (80.0-94.0); Nucleated Red Blood Cells % 0 % (-); Platelet Count 298 10^3/uL (130-400); Red Cell Dist. Width 13.2 % (11.5-14.5)
[2025-03-01 15:53] LABS: Blood Urea Nitrogen 14 mg/dl (9-20); Calcium 10.1 mg/dl (8.4-10.2); Carbon Dioxide 9 mmol/L (22-30); Chloride 101 mmol/L (98-107); Estimated Creatinine Clearance 63 ml/min; Glucose 160 mg/dl (70-99); Potassium 3.8 mmol/L (3.5-5.1); Sodium 135 mmol/L (135-145); eGFR > 60.00
--- NOTE | 2025-03-01 15:53 | PTCARENOTE ---
Patient transferred to IMU. Patient post ictal. Report given to ALEJANDRO Delvalle team transported patient to IMU.
[2025-03-01 15:56] LABS: Troponin I < 0.012 ng/ml
--- NOTE | 2025-03-01 16:33 | PTCARENOTE ---
Pt arrived to floor in bed from ; Pt recently had rapid response called for new seizure activity and was upgraded to IMU; Pt very drowsy but responsive, following simple commands. Responding yes/no but communication limited. 99% on 2L O2 via
NC; B/P = 118/64; NSR on monitor; Around 1602 Pt began seizing again, head and upper extremities shaking and eyes/head deviated to left. Valium 5mg IV administered as per MAR; Seizure stopped shortly after administration lasting ~ 2-3 minutes.
Will continue to monitor and assess.
[2025-03-01] MEDS: SODIUM BICARBONATE 1150 MEQ IV (17:24)
[2025-03-01] MEDS: ATIVAN 0.75 MG PO (21:00)
[2025-03-01 23:09] LABS: Blood Urea Nitrogen 18 mg/dl (9-20); Calcium 9.7 mg/dl (8.4-10.2); Carbon Dioxide 22 mmol/L (22-30); Chloride 100 mmol/L (98-107); Estimated Creatinine Clearance 71 ml/min; Glucose 115 mg/dl (70-99); Potassium 3.8 mmol/L (3.5-5.1); Sodium 129 mmol/L (135-145); eGFR > 60.00
[2025-03-02] VITALS (11 sets, daily range): BP systolic 112–143; BP diastolic 52–94; PULSE 74; O2SAT 98
[2025-03-02] MEDS: NSS 1000 IV (00:17)
--- NOTE | 2025-03-02 02:06 | PTCARENOTE ---
Pt received at beginning of shift resting in bed. AAOx1-3. Extremely forgetful. Asks same questions over and over with seconds of each other. Very [place]. Hearing aides on but batteries . Can be restless in bed. Neuro checks as documented. VSS.
Afebrile. SR/ST/Afib/1st AVB rate 70's-100's. No seizures noted throughout shift so far. Received HS meds without difficulty. Thirsty most of beginning of shift. Reinforced fluid restrictions but pt easily forget education. 's order 1:1
observation. Sitter in room. Pt with difficulty urinating. 250mls UO using urinal. Bladder scanned post void 105ml. BMP order entered last HS. Comment in BMP order 'switch BICARB gtt to NS if acidosis resolves, same rate.' Chencho CHAWLA TT'd and made
aware however attending placed order to change IVF's to NS. NS IVF infusing at this time as ordered. No change from previous assessment. Turns self in bed. Will continue to monitor.
[2025-03-02 03:20] LABS: Hematocrit 33.4 % (39.0-52.0); Hemoglobin 11.8 g/dL (13.0-18.0); Mean Corp Hgb Conc. 35.3 g/dL (33.0-37.0); Mean Corpuscular Volume 88.4 fL (80.0-94.0); Platelet Count 231 10^3/uL (130-400); Red Cell Dist. Width 13.1 % (11.5-14.5)
[2025-03-02 03:37] LABS: Blood Urea Nitrogen 18 mg/dl (9-20); Calcium 9.5 mg/dl (8.4-10.2); Carbon Dioxide 23 mmol/L (22-30); Chloride 101 mmol/L (98-107); Estimated Creatinine Clearance 71 ml/min; Glucose 108 mg/dl (70-99); Magnesium 2.3 mg/dl (1.6-2.3); Potassium 3.7 mmol/L (3.5-5.1); Sodium 131 mmol/L (135-145); eGFR > 60.00
[2025-03-02] MEDS: SYMBICORT 80/4.5 MCG INHALER 1 PUFF INH ×2 (07:40→19:36)
[2025-03-02] MEDS: SODIUM CHLORIDE 1 GRAM PO ×2 (07:44→20:15)
[2025-03-02] MEDS: ATIVAN 0.75 MG PO ×3 (07:44→21:03)
[2025-03-02] MEDS: FLOMAX 0.4 MG PO (07:44)
[2025-03-02] MEDS: LIPITOR 40 MG PO (07:44)
--- NOTE | 2025-03-02 07:45 | W.PN.HOSP.TC ---
Today's Communication/Plan
-
cont to monitor for seizure activity for the next 24 hours before discharged planning
Assessment / Plan
Assessment / Plan
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 However, Bora
who speaks to patient every day states pt came on his own. Per Bora, patient was stating he was unable to find his Xanax prior to coming in.
CT head 02/25/25: No acute intracranial abnormality
MRI 02/27/25: No acute intracranial abnormality noted. Chronic senescent changes.
A/P:
# Acute Anxiety with confusion
Suspect secondary not being able to find Xanax prescription. Dr Penn received information from patient's friend, Bora Pereyra (phone # [phone]) who reports that patient has had increasing memory loss. They speak every day but Bora lives in the
[place].
MRI obtained without acute abnormality
patient is not an SSRI candidate 2/2 hyponatremia
Now on Ativan 0.75 mg TID (PUBLIC SPEAKING COACH 1 mg TID)
# DESIGN TECH with 3 seizures 03/01 due to benzo withdrawal
Seizure activity aborted with IV valium 5mg (given 2 doses)
Since then benzo changed from Xanax to Ativan at 0.75 mg TID (PUBLIC SPEAKING COACH 1 mg TID)
# Chronic Memory Loss, likely dementia
per Dr Penn discussion with Bora, this is a chronic issue likely exacerbated by anxiety as above and possibly by lower Na (see below)
patient lives alone. PT appreciated no skilled needs. OT noted significant cognitive impairment, patient declined VN, AOX3 at capacity to make his own medical decisions
patient does not have family that lives close by (brother lives in [place] and they are not close). Dr Penn discussed with Bora, that patient will benefit from having more people check in on him once discharged.
Discussed with patient need to avoid driving at this time and follow up with primary care provider for clearance to resume driving. After some repetition, patient was able to verbalize his understanding to avoid driving and willingness to comply
with recommendations. Patient arranged his own transportation for discharge with friends and also verbalized plan to have friends transport his vehicle home for him
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
urine studies show SIADH
salt tabs given for Na 129 on 02/27, but unfortunately sodium down to 126
continue fluid restriction
Nephrology consult appreciated, hyponatremia resolved with Samsca
# History of reported TIA
Continue Lipitor 40 mg daily
patient is not on aspirin or NOAC at home
# HTN
Hold lisinopril 20 mg daily
BP WNL without med
# Paroxysmal A-fib
Continue amiodarone
patient is not on oral AC
# COPD no acute exacerbation
# Former smoker
Continue Symbicort
# Asthma no acute exacerbation
# BPH
Continue Flomax
DVT prophylaxis: SCDs
Full code
Anticipated Discharge: Within 24 hours
Subjective/Interval History
-
Date of Service: March 02, 2025
Objective Data
-
Labs:
Laboratory Results
03/01/25 03/02/25
22:46 02:55
WBC 9.1
Hgb 11.8 L
Hct 33.4 L
Plt Count 231 D
Sodium 129 L 131 L
Potassium 3.8 3.7
Chloride 100 101
Carbon Dioxide 22 23
BUN 18 18
Creatinine 0.8 0.8
Glucose 115 H 108 H
Calcium 9.7 9.5
Vital Signs:
Vital Signs
Temp Pulse Resp BP Pulse Ox
37.1 C 69 16 119/58 100
03/02/25 03:12 03/02/25 07:43 03/02/25 07:43 03/02/25 06:00 03/02/25 07:43
I&O
03/01/25 03/02/25 03/03/25
06:59 06:59 06:59
Intake Total 840 / 840 1240 / 1240
Output Total 250 / 250 340 / 340
Balance 590 / 590 900 / 900
Review of Systems
-
History Source: Patient
All other systems: Reviewed and negative
Physical Exam
-
General: Well Developed, Well Nourished, No Apparent Distress, Comfortable and Conversant
HEENT: Normocephalic and Atraumatic
Respiratory: Clear to Auscultation and Non Labored Respirations; Negative Wheezes or Accessory Resp Muscle Use
Cardiac: Regular Rhythm and S1/S2
GI: Soft, Nontender, Nondistended and Normal Bowel Sounds
Skin: Warm and Dry; Negative Rash
Neuro: Awake, Alert and Oriented
Psych: Calm
Data Reviewed
-
Labs: Labs Reviewed by me
[2025-03-02] MEDS: PACERONE 100 MG PO (07:46)
--- NOTE | 2025-03-02 08:07 | W.PN.NEPH.PH ---
Today's Communication / Plan
-
follow bmp
maintain fluid restriction and salt tablets
Assessment/Plan
-
Impression:
Acute on chronic euvolemic hyponatremia (126)
Change of mental status
History of depression and anxiety
History of atrial fibrillation
History of hypertension
History of COPD
BPH
Seizure 03/01/25
Plan:
Hyponatremia:
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
- Maintain fluid restriction and salt tablets bid
- s/p 7.5 mg of Samsca on 02/28, sodium stable at 131
-can discharge on 48oz fluid restriction
HTN:
- Maintain lisinopril
Change of mental status
- Given chronic hyponatremia and serum sodium on presentation of 128, I doubt his change of mental status is due to hyponatremia
- MRI and CT without notable findings
- TSH within normal limits
- Alcohol negative on tox screen
-
-
-
Date of Service: March 02, 2025
CC / HPI / ROS
-
Chief Complaint:
Hyponatremia
History of Present Illness:
Blood pressure controlled on lisinopril
Serum sodium up to 131 status post Samsca administration
Seizure on 03/01
metabolic acidosis stable
Review of Systems:
Nonoliguric
No chest pain or shortness of breath
no fevers
Labs
-
Labs:
WBC 9.1 10^3/uL (4.8-10.8) 03/02/25 02:55
RBC 3.78 10^6/uL (4.70-6.10) L 03/02/25 02:55
Hgb 11.8 g/dL (13.0-18.0) L 03/02/25 02:55
Hct 33.4 % (39.0-52.0) L 03/02/25 02:55
Plt Count 231 10^3/uL (130-400) D 03/02/25 02:55
Sodium 131 mmol/L (135-145) L 03/02/25 02:55
Potassium 3.7 mmol/L (3.5-5.1) 03/02/25 02:55
Chloride 101 mmol/L (98-107) 03/02/25 02:55
Carbon Dioxide 23 mmol/L (22-30) 03/02/25 02:55
BUN 18 mg/dl (9-20) 03/02/25 02:55
Creatinine 0.8 mg/dL (0.7-1.3) 03/02/25 02:55
eGFR > 60.00 03/02/25 02:55
Glucose 108 mg/dl (70-99) H 03/02/25 02:55
Calcium 9.5 mg/dl (8.4-10.2) 03/02/25 02:55
Phosphorus 4.4 mg/dl (2.5-4.5) 03/02/25 02:55
Albumin 4.2 g/dl (3.5-5.0) 02/26/25 07:11
Physical Exam
-
Vital Signs:
Vital Signs
Temp Pulse Resp BP Pulse Ox
98.8 F 68 16 119/58 100
03/02/25 03:12 03/02/25 07:46 03/02/25 07:43 03/02/25 07:46 03/02/25 07:43
Cardiovascular:: Regular rate and rhythm
Respiratory:: Bilateral: Coarse
Abdomen:: Nontender and Soft
Bowel Sounds:: Normal
Extremity Edema:: None: Bilateral:
Oneill Catheter: No
--- NOTE | 2025-03-02 08:50 | PTCARENOTE ---
Assumed care for Pt at shift change; Pt resting comfortably in bed, disoriented to time and place upon waking. Oriented Pt to surrounding; Denied pain, no seizure activity overnight. Sinus arrythmia on monitor with first degree AVB and prolonged
QT; VSS; will continue to monitor and asses.
[2025-03-03] VITALS (10 sets, daily range): BP systolic 105–178; BP diastolic 50–105
[2025-03-03 06:42] LABS: Hematocrit 34.5 % (39.0-52.0); Hemoglobin 11.8 g/dL (13.0-18.0); Mean Corp Hgb Conc. 34.2 g/dL (33.0-37.0); Mean Corpuscular Volume 90.6 fL (80.0-94.0); Platelet Count 216 10^3/uL (130-400); Red Cell Dist. Width 13.3 % (11.5-14.5)
[2025-03-03 06:50] LABS: Blood Urea Nitrogen 18 mg/dl (9-20); Calcium 9.5 mg/dl (8.4-10.2); Carbon Dioxide 23 mmol/L (22-30); Chloride 103 mmol/L (98-107); Estimated Creatinine Clearance 71 ml/min; Glucose 98 mg/dl (70-99); Magnesium 2.2 mg/dl (1.6-2.3); Potassium 3.9 mmol/L (3.5-5.1); Sodium 131 mmol/L (135-145); eGFR > 60.00
[2025-03-03] MEDS: SYMBICORT 80/4.5 MCG INHALER 1 PUFF INH ×2 (08:12→19:45)
--- NOTE | 2025-03-03 08:13 | W.PN.HOSP.TC ---
Addendum entered and electronically signed by Miracle Cooley MD 03/03/25 11:41:
A friend Mook [phone] came to visit per RN.
Original Note:
Today's Communication/Plan
-
see A/P
Assessment / Plan
Assessment / Plan
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 However, Bora
who speaks to patient every day states pt came on his own. Per Bora, patient was stating he was unable to find his Xanax prior to coming in.
CT head 02/25/25: No acute intracranial abnormality
MRI 02/27/25: No acute intracranial abnormality noted. Chronic senescent changes.
A/P:
# Acute Anxiety with confusion
Suspect secondary not being able to find Xanax prescription. Dr Penn received information from patient's friend, Bora Pereyra (phone # [phone]) who reports that patient has had increasing memory loss. They speak every day but [place].
MRI obtained without acute abnormality
patient is not an SSRI candidate 2/2 hyponatremia
restarted benzo, currently on Ativan 0.75 mg TID (RESEARCH CONTRACTS SUPERVISOR 1 mg TID), plan to taper off as it is felt unsafe and unreliable for this patient with memory issue to go home with benzo script (he lives alone; does not have PCP for refill)
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
Seizure activity aborted with IV valium 5mg (given 2 doses)
Since then benzo changed from Xanax to Ativan at 0.75 mg TID (RESEARCH CONTRACTS SUPERVISOR 1 mg TID), plan to taper to off as stated above
# Chronic Memory Loss, likely dementia
per Dr Penn discussion with Bora, this is a chronic issue likely exacerbated by anxiety as above and possibly by lower Na (see below)
patient lives alone. PT appreciated no skilled needs. OT noted significant cognitive impairment, patient declined VN, AOX3 at capacity to make his own medical decisions
patient does not have family that lives close by (brother lives in [place] and they are not close). Dr Penn discussed with Bora, that patient will benefit from having more people check in on him once discharged.
Discussed with patient need to avoid driving at this time and follow up with primary care provider for clearance to resume driving. After some repetition, patient was able to verbalize his understanding to avoid driving and willingness to comply
with recommendations. Patient arranged his own transportation for discharge with friends and also verbalized plan to have friends transport his vehicle home for him
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
urine studies show SIADH
cont current fluid restriction and salt tab BID
s/p Samsca
Nephrology consult appreciated
# History of reported TIA
Continue Lipitor 40 mg daily
patient is not on aspirin or NOAC at home
# HTN
Hold lisinopril 20 mg daily
BP WNL without med
# Paroxysmal A-fib
Continue amiodarone
patient is not on oral AC
# COPD no acute exacerbation
# Former smoker
Continue Symbicort
# Asthma no acute exacerbation
# BPH
Continue Flomax
DVT prophylaxis: SCDs
Full code
DW RN
total time spent 51 min
Anticipated Discharge: 24 - 48 hours
Subjective/Interval History
-
Date of Service: March 03, 2025
Objective Data
-
Labs:
Laboratory Results
03/03/25
05:56
WBC 7.0
Hgb 11.8 L
Hct 34.5 L
Plt Count 216
Sodium 131 L
Potassium 3.9
Chloride 103
Carbon Dioxide 23
BUN 18
Creatinine 0.8
Glucose 98
Calcium 9.5
Vital Signs:
Vital Signs
Temp Pulse Resp BP Pulse Ox
36.7 C 49 15 105/50 95
03/03/25 03:58 03/03/25 04:00 03/03/25 04:00 03/03/25 04:00 03/02/25 23:35
I&O
03/02/25 03/03/25 03/04/25
06:59 06:59 06:59
Intake Total 1240 / 1240
Output Total 340 / 340
Balance 900 / 900
Review of Systems
-
History Source: Patient
All other systems: Reviewed and negative
Physical Exam
-
General: Well Developed, Well Nourished, No Apparent Distress, Comfortable and Conversant
HEENT: Normocephalic, Atraumatic and Hearing Impaired
Respiratory: Clear to Auscultation and Non Labored Respirations; Negative Wheezes or Accessory Resp Muscle Use
Cardiac: Regular Rhythm and S1/S2
GI: Soft, Nontender, Nondistended and Normal Bowel Sounds
Skin: Warm and Dry; Negative Rash
Neuro: Awake and Alert
Psych: Calm
Data Reviewed
-
Labs: Labs Reviewed by me
[2025-03-03] MEDS: LIPITOR 40 MG PO (09:47)
[2025-03-03] MEDS: ATIVAN 0.5 MG PO ×3 (09:47→20:24)
[2025-03-03] MEDS: FLOMAX 0.4 MG PO (09:47)
[2025-03-03] MEDS: SODIUM CHLORIDE 1 GRAM PO ×2 (09:47→20:24)
[2025-03-03] MEDS: PACERONE 200 MG PO (09:49)
[2025-03-03] MEDS: ATIVAN PO (10:24)
--- NOTE | 2025-03-03 10:52 | W.PN.NEPH.PH ---
Today's Communication / Plan
-
Okay to discharge from renal standpoint with continue fluid restriction
Assessment/Plan
-
Impression:
Acute on chronic euvolemic hyponatremia (126)
Change of mental status
History of depression and anxiety
History of atrial fibrillation
History of hypertension
History of COPD
BPH
Seizure 03/01/25
Plan:
Hyponatremia:
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
- Maintain fluid restriction and salt tablets bid
- s/p 7.5 mg of Samsca on 02/28, sodium stable at 131
-can discharge on 48oz fluid restriction
HTN:
- Maintain lisinopril
Change of mental status
- Given chronic hyponatremia and serum sodium on presentation of 128, I doubt his change of mental status is due to hyponatremia
- MRI and CT without notable findings
- TSH within normal limits
- Alcohol negative on tox screen
-
-
-
Date of Service: March 03, 2025
CC / HPI / ROS
-
Chief Complaint:
Hyponatremia
History of Present Illness:
Blood pressure controlled on lisinopril
Serum sodium up to 131 status post Samsca administration
Seizure on 03/01
metabolic acidosis stable
Review of Systems:
Nonoliguric
No chest pain or shortness of breath
no fevers
Labs
-
Labs:
WBC 7.0 10^3/uL (4.8-10.8) 03/03/25 05:56
RBC 3.81 10^6/uL (4.70-6.10) L 03/03/25 05:56
Hgb 11.8 g/dL (13.0-18.0) L 03/03/25 05:56
Hct 34.5 % (39.0-52.0) L 03/03/25 05:56
Plt Count 216 10^3/uL (130-400) 03/03/25 05:56
Sodium 131 mmol/L (135-145) L 03/03/25 05:56
Potassium 3.9 mmol/L (3.5-5.1) 03/03/25 05:56
Chloride 103 mmol/L (98-107) 03/03/25 05:56
Carbon Dioxide 23 mmol/L (22-30) 03/03/25 05:56
BUN 18 mg/dl (9-20) 03/03/25 05:56
Creatinine 0.8 mg/dL (0.7-1.3) 03/03/25 05:56
eGFR > 60.00 03/03/25 05:56
Glucose 98 mg/dl (70-99) 03/03/25 05:56
Calcium 9.5 mg/dl (8.4-10.2) 03/03/25 05:56
Phosphorus 4.0 mg/dl (2.5-4.5) 03/03/25 05:56
Albumin 4.2 g/dl (3.5-5.0) 02/26/25 07:11
Physical Exam
-
Vital Signs:
Vital Signs
Temp Pulse Resp BP Pulse Ox
98.1 F 62 18 152/73 98
03/03/25 07:15 03/03/25 08:14 03/03/25 08:14 03/03/25 08:00 03/03/25 10:42
Cardiovascular:: Regular rate and rhythm
Respiratory:: Bilateral: Coarse
Abdomen:: Nontender and Soft
Bowel Sounds:: Normal
Extremity Edema:: None: Bilateral:
Oneill Catheter: No
[2025-03-03] MEDS: SENOKOT-S 1 TABLET PO ×2 (12:50→20:24)
[2025-03-03] MEDS: MIRALAX 17 GRAMS PO (12:50)
--- NOTE | 2025-03-03 17:24 | CM ---
Home when stable, no needs.
Plan; Home when stable.
[2025-03-04] VITALS (14 sets, daily range): BP systolic 127–177; BP diastolic 71–129; PULSE 94; O2SAT 98; BMI 25.6
[2025-03-04] MEDS: ZOFRAN 4 MG IV (00:21)
--- NOTE | 2025-03-04 00:31 | PTCARENOTE ---
This RN was replacing leads on patient due to him pulling at wires and removing leads. Patiemt suddenly began vomiting. TT BREWERY PUMPER,, new order for zofran ordered. Cleaned up patient and sat at 30 degrees. Patient reports feeling better.
[2025-03-04 05:55] LABS: Blood Urea Nitrogen 13 mg/dl (9-20); Calcium 9.3 mg/dl (8.4-10.2); Carbon Dioxide 24 mmol/L (22-30); Chloride 98 mmol/L (98-107); Estimated Creatinine Clearance 95 ml/min; Glucose 111 mg/dl (70-99); Potassium 3.5 mmol/L (3.5-5.1); Sodium 128 mmol/L (135-145); eGFR > 60.00
--- NOTE | 2025-03-04 06:02 | PTCARENOTE ---
patient's bp running in 170s systolic. TT SWATCH PASTER, no new orders. continuing to monitor.
[2025-03-04] MEDS: SYMBICORT 80/4.5 MCG INHALER 1 PUFF INH ×2 (07:21→19:39)
--- NOTE | 2025-03-04 08:22 | W.PN.HOSP.TC ---
Today's Communication/Plan
-
see A/P
Assessment / Plan
Assessment / Plan
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 However, Bora
who speaks to patient every day states pt came on his own. Per Bora, patient was stating he was unable to find his Xanax prior to coming in.
CT head 02/25/25: No acute intracranial abnormality
MRI 02/27/25: No acute intracranial abnormality noted. Chronic senescent changes.
A/P:
# Acute Anxiety with confusion
Suspect secondary not being able to find Xanax prescription. Dr Penn received information from patient's friend, Bora Pereyra (phone # [phone]) who reports that patient has had increasing memory loss. They speak every day but [place]ora [place] the
[place].
MRI obtained without acute abnormality
patient is not an SSRI candidate 2/2 hyponatremia
restarted benzo (DESK OPERATOR Ativan 1 mg TID), with plan to taper off current Ativan as it is felt unsafe for this patient with memory issue to go home (he lives alone) with benzo
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
Seizure activity aborted with IV valium 5mg (s/p 2 doses)
Since then benzo changed from Xanax to Ativan, cont plan to taper to off prior to DC
# Chronic Memory Loss, likely dementia
per Dr Penn discussion with Bora, this is a chronic issue likely exacerbated by anxiety as above and possibly by lower Na (see below)
patient lives alone. PT appreciated no skilled needs. OT noted significant cognitive impairment, patient declined VN, AOX3 at capacity to make his own medical decisions
patient does not have family that lives close by (brother lives in [place] and they are not close). Dr Penn discussed with Bora, that patient will benefit from having more people check in on him once discharged.
Discussed with patient need to avoid driving at this time and follow up with primary care provider for clearance to resume driving. After some repetition, patient was able to verbalize his understanding to avoid driving and willingness to comply
with recommendations. Patient arranged his own transportation for discharge with friends and also verbalized plan to have friends transport his vehicle home for him
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
urine studies show SIADH
cont current fluid restriction and salt tab BID
s/p Samsca
Nephrology consult appreciated
# History of reported TIA
Continue Lipitor 40 mg daily
patient is not on aspirin or NOAC at home
# HTN
resume DESK OPERATOR lisinopril 20 mg daily
Monitor BP
# Paroxysmal A-fib
Continue amiodarone
patient is not on oral AC
# COPD no acute exacerbation
# Former smoker
Continue Symbicort
# Asthma no acute exacerbation
# BPH
Continue Flomax
# N/V overnight 03/03
Pt denies to abd pain
Check AXR
Zofran PRN
DVT prophylaxis: Add Lovenox SQ
Full code
DW RN
DW brother on the phone. Explained my recc for dispo to memory care unit, he agrees
DW CM
total time 51 min
Anticipated Discharge: > 48 hours
Subjective/Interval History
-
Date of Service: March 04, 2025
Objective Data
-
Labs:
Laboratory Results
03/04/25
05:24
Sodium 128 L
Potassium 3.5
Chloride 98
Carbon Dioxide 24
BUN 13
Creatinine 0.6 L
Glucose 111 H
Calcium 9.3
Vital Signs:
Vital Signs
Temp Pulse Resp BP Pulse Ox
36.7 C 72 20 172/98 97
03/04/25 02:30 03/04/25 07:23 03/04/25 07:23 03/04/25 04:01 03/04/25 07:23
I&O
03/03/25 03/04/25 03/05/25
06:59 06:59 06:59
Intake Total 765 / 765
Output Total 720 / 720
Balance 45 / 45
Review of Systems
-
Unable to obtain full review of systems at this time due to: Dementia
History Source: Patient
All other systems: Reviewed and negative
Physical Exam
-
General: Well Developed, Well Nourished, No Apparent Distress, Comfortable and Conversant
HEENT: Normocephalic, Atraumatic and Hearing Impaired
Respiratory: Clear to Auscultation and Non Labored Respirations; Negative Wheezes or Accessory Resp Muscle Use
Cardiac: Regular Rhythm and S1/S2
GI: Soft, Nontender, Nondistended and Normal Bowel Sounds
Skin: Warm and Dry; Negative Rash
Neuro: Awake and Alert
Psych: Calm and Apparent Dementia
Data Reviewed
-
Labs: Labs Reviewed by me
--- NOTE | 2025-03-04 08:40 | PTCARENOTE ---
Patient was confused and restless during the night. Constantly pulling monitor equipment off. Forgetful with poor short term memory. Bed alarm set.
[2025-03-04] MEDS: ZESTRIL 20 MG PO (09:22)
[2025-03-04] MEDS: LIPITOR 40 MG PO (09:22)
[2025-03-04] MEDS: ATIVAN 0.5 MG PO ×3 (09:23→21:02)
[2025-03-04] MEDS: KCL 40 MEQ PO (09:23)
[2025-03-04] MEDS: MIRALAX 17 GRAMS PO (09:23)
[2025-03-04] MEDS: FLOMAX 0.4 MG PO (09:23)
[2025-03-04] MEDS: SODIUM CHLORIDE 1 GRAM PO ×2 (09:23→20:23)
[2025-03-04] MEDS: SENOKOT-S 1 TABLET PO ×2 (09:23→20:23)
[2025-03-04] MEDS: PACERONE 100 MG PO (09:27)
[2025-03-04] MEDS: LOVENOX 40 MG SC (17:35)
[2025-03-04] MEDS: DULCOLAX 10 MG RECTAL (17:35)
--- NOTE | 2025-03-04 18:00 | PTCARENOTE ---
Report given to Sera CHENG. Patient transferred to 4th floor room 411 on stretcher. All belongings with the patient.
[2025-03-04] MEDS: TUMS CHEWABLE TABLET 200 MG PO (20:30)
[2025-03-04] MEDS: MELATONIN 5 MG PO (22:20)
[2025-03-05] VITALS (7 sets, daily range): BP systolic 116–136; BP diastolic 57–80
--- NOTE | 2025-03-05 02:49 | DOWNTIME ---
There was a [employer] Intern Downtime on 03/05/2025 from 0100 to 03/05/2025 at 0235. Downtime documentation of patient's care, including medication administrations, has been reconciled in the electronic record per guidelines. Refer to the
patient's paper chart under the miscellaneous tab to see printed paper medication records and downtime forms.
[2025-03-05] MEDS: SYMBICORT 80/4.5 MCG INHALER 1 PUFF INH ×2 (07:42→19:23)
[2025-03-05] MEDS: SENOKOT-S 1 TABLET PO (08:03)
[2025-03-05] MEDS: ZESTRIL 20 MG PO (08:03)
[2025-03-05] MEDS: SODIUM CHLORIDE 1 GRAM PO ×2 (08:03→21:39)
[2025-03-05] MEDS: ATIVAN 0.25 MG PO ×3 (08:03→21:38)
[2025-03-05] MEDS: FLOMAX 0.4 MG PO (08:04)
[2025-03-05] MEDS: LIPITOR 40 MG PO (08:04)
[2025-03-05] MEDS: MIRALAX 17 GRAMS PO (08:04)
[2025-03-05 08:05] LABS: Blood Urea Nitrogen 13 mg/dl (9-20); Calcium 9.9 mg/dl (8.4-10.2); Carbon Dioxide 21 mmol/L (22-30); Chloride 98 mmol/L (98-107); Estimated Creatinine Clearance 81 ml/min; Glucose 107 mg/dl (70-99); Magnesium 1.8 mg/dl (1.6-2.3); Potassium 4.2 mmol/L (3.5-5.1); Sodium 128 mmol/L (135-145); eGFR > 60.00
[2025-03-05] MEDS: PACERONE 200 MG PO (08:07)
--- NOTE | 2025-03-05 08:11 | W.PN.HOSP.TC ---
Today's Communication/Plan
-
see A/P
Assessment / Plan
Assessment / Plan
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 However, Bora
who speaks to patient every day states pt came on his own. Per Bora, patient was stating he was unable to find his Xanax prior to coming in.
CT head 02/25/25: No acute intracranial abnormality
MRI 02/27/25: No acute intracranial abnormality noted. Chronic senescent changes.
A/P:
# Acute Anxiety with confusion
Suspect secondary not being able to find Xanax prescription. Dr Penn received information from patient's friend, Boraprincess Pereyra (phone # [phone]) who reports that patient has had increasing memory loss. They speak every day but Bora [place] the
[place].
MRI obtained without acute abnormality
patient is not an SSRI candidate 2/2 hyponatremia
restarted benzo (SAP SPECIALIST Ativan 1 mg TID), with plan to taper off before discharge as it is felt unsafe for this patient with memory issue to go home (he lives alone) with benzo
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
Seizure activity aborted with IV valium 5mg (s/p 2 doses)
Since then benzo changed from Xanax to Ativan, cont plan to taper to off prior to DC
# Chronic Memory Loss, likely severe dementia
patient lives alone. PT appreciated no skilled needs. OT noted significant cognitive impairment.
patient does not have family that lives close by (brother lives in [place] and they are not close).
Dr Penn discussed with Bora, that patient will benefit from having more people check in on him once discharged.
Discussed with patient need to avoid driving at this time and follow up with primary care provider for clearance to resume driving. After some repetition, patient was able to verbalize his understanding to avoid driving and willingness to comply
with recommendations. Patient arranged his own transportation for discharge with friends and also verbalized plan to have friends transport his vehicle home for him
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
urine studies show SIADH
cont current fluid restriction and salt tab BID
s/p Samsca
Sodium level stable at 128 today
Nephrology consult appreciated
# History of reported TIA
Continue Lipitor 40 mg daily
patient is not on aspirin or NOAC at home
# HTN
resume SAP SPECIALIST lisinopril 20 mg daily
Monitor BP
# Paroxysmal A-fib
Continue amiodarone
patient is not on oral AC
# COPD no acute exacerbation
# Former smoker
Continue Symbicort
# Asthma no acute exacerbation
# BPH
Continue Flomax
# N/V overnight 03/03
Pt denies to abd pain
AXR XR 03/04 noted Moderate amount of fecal material throughout the colon and rectum.
cont Miralax and Senokot-S
s/p 1 dose dulcolax
Zofran PRN
DVT prophylaxis: Added Lovenox SQ
Full code
Dispo: pt declines memory care unit, wants to go home. Have requested CM to reach out to [employer] to look into pt's social situation.
DW RN
DW brother on the phone. Updated on clinical course.
DW CM
total time 51 min
Anticipated Discharge: 24 - 48 hours
Subjective/Interval History
-
Date of Service: March 05, 2025
Objective Data
-
Labs:
Laboratory Results
03/05/25
06:04
Sodium 128 L
Potassium 4.2
Chloride 98
Carbon Dioxide 21 L
BUN 13
Creatinine 0.7
Glucose 107 H
Calcium 9.9
Vital Signs:
Vital Signs
Temp Pulse Resp BP Pulse Ox
37.1 C 71 16 127/65 98
03/05/25 03:12 03/05/25 08:07 03/05/25 07:47 03/05/25 08:07 03/05/25 07:47
I&O
03/04/25 03/05/25 03/06/25
06:59 06:59 06:59
Intake Total 765 / 765 1045 / 1045
Output Total 720 / 720 1540 / 1540
Balance 45 / 45 -495 / -495
Review of Systems
-
Unable to obtain full review of systems at this time due to: Dementia
History Source: Patient
All other systems: Reviewed and negative
Physical Exam
-
General: Well Developed, Well Nourished, No Apparent Distress, Comfortable and Conversant
HEENT: Normocephalic, Atraumatic and Hearing Impaired
Respiratory: Clear to Auscultation and Non Labored Respirations; Negative Wheezes or Accessory Resp Muscle Use
Cardiac: Regular Rhythm and S1/S2
GI: Soft, Nontender, Nondistended and Normal Bowel Sounds
Skin: Warm and Dry; Negative Rash
Neuro: Awake and Alert
Psych: Calm and Apparent Dementia
Data Reviewed
-
Labs: Labs Reviewed by me
--- NOTE | 2025-03-05 13:29 | PTCARENOTE ---
Pt went into rapid afib from NSR, obtained vitals, EKG shows afib w RVR, reached out to the MD and a Lopressor was ordered.
[2025-03-05] MEDS: LOPRESSOR 5 MG IV (13:32)
--- NOTE | 2025-03-05 13:59 | PTCARENOTE ---
Administered Lopressor 5mg IV and the pt has sustained 110-115. aware
--- NOTE | 2025-03-05 14:08 | W.PN.NEPH.PH ---
Today's Communication / Plan
-
Add Lasix 20 mg every other day in addition to fluid restriction and Lasix for refractory hyponatremia
Assessment/Plan
-
Impression:
Acute on chronic euvolemic hyponatremia (126)
Change of mental status
History of depression and anxiety
History of atrial fibrillation
History of hypertension
History of COPD
BPH
Seizure 03/01/25
Plan:
Hyponatremia:
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
- Maintain fluid restriction and salt tablets bid
- s/p 7.5 mg of Samsca on 02/28, sodium down to 128
-I will implement Lasix 20 mg every other day
-can discharge on 48oz fluid restriction and salt
HTN:
- Maintain lisinopril
Change of mental status
- Given chronic hyponatremia and serum sodium on presentation of 128, I doubt his change of mental status is due to hyponatremia
- MRI and CT without notable findings
- TSH within normal limits
- Alcohol negative on tox screen
-
-
-
Date of Service: March 05, 2025
CC / HPI / ROS
-
Chief Complaint:
Hyponatremia
History of Present Illness:
Blood pressure controlled on lisinopril
Serum sodium down to 128
Seizure on 03/01
metabolic acidosis stable
Review of Systems:
Nonoliguric
No chest pain or shortness of breath
no fevers
Labs
-
Labs:
WBC 7.0 10^3/uL (4.8-10.8) 03/03/25 05:56
RBC 3.81 10^6/uL (4.70-6.10) L 03/03/25 05:56
Hgb 11.8 g/dL (13.0-18.0) L 03/03/25 05:56
Hct 34.5 % (39.0-52.0) L 03/03/25 05:56
Plt Count 216 10^3/uL (130-400) 03/03/25 05:56
Sodium 128 mmol/L (135-145) L 03/05/25 06:04
Potassium 4.2 mmol/L (3.5-5.1) 03/05/25 06:04
Chloride 98 mmol/L (98-107) 03/05/25 06:04
Carbon Dioxide 21 mmol/L (22-30) L 03/05/25 06:04
BUN 13 mg/dl (9-20) 03/05/25 06:04
Creatinine 0.7 mg/dL (0.7-1.3) 03/05/25 06:04
eGFR > 60.00 03/05/25 06:04
Glucose 107 mg/dl (70-99) H 03/05/25 06:04
Calcium 9.9 mg/dl (8.4-10.2) 03/05/25 06:04
Phosphorus 4.0 mg/dl (2.5-4.5) 03/03/25 05:56
Albumin 4.2 g/dl (3.5-5.0) 02/26/25 07:11
Physical Exam
-
Vital Signs:
Vital Signs
Temp Pulse Resp BP Pulse Ox
98.6 F 140 16 152/95 99
03/05/25 11:00 03/05/25 13:32 03/05/25 11:00 03/05/25 13:32 03/05/25 12:13
Cardiovascular:: Regular rate and rhythm
Respiratory:: Bilateral: Coarse
Abdomen:: Nontender and Soft
Bowel Sounds:: Normal
Extremity Edema:: None: Bilateral:
Oneill Catheter: No
--- NOTE | 2025-03-05 14:32 | CON.MD ---
Addendum entered and electronically signed by Yue Ruggiero MD 03/05/25 15:44:
spoke to brother patient was NOT confused two weeks ago according to brother see note for later this afternoon.. i do wonder if he was taking more xanax than he told us but it is impossible to know at this point what remains ofi his last scrip. i
do know from dr luis talking to pcp that he had called the office for a refill.
Original Note:
Consultation - Medical
-
patient seen chart reviewed. discussed with nursing. this consult was done today march 05 2025. the patient is an 84 year old male who comes to w c/o acute confusion. the patient did have a sz in the recent past according to the chart perhaps
secondary to abrupt dc of benzos. as he sees it this was the reason for his admit. this consult was ordered bc it has been noted that mr prater confusion has not abated and there is a ? re dementia. i was able to observe him before i talked to him
as nursing was scanning his bladder as he had failed to void. he required much instruction to get him to make an effort to void into the urinal when the scan revealed urine in his bladder. he had a hard time answering questions when i later spoke to
him insisting 'i just woke up and want to get some sleep. he seemed to think it was night and was surprised when i told him it was just before two pm. he was overall a poor historian although he told me that he worked at [employer] until last
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 he was oriend to [facility] and 'february 2025' but had a hard time telling me the season...said it was spring and it was only with a lot of
help that he told me it was summer and that fall followed summer. he could not remember that he has hx of depression and has taken many medications for depression (this is noted in dr lopez's evaluation in 2022). he denies depression right now
but he did tell me he was unhappy to be in the hospital and wanted to go home. he is not suicidal. i did not see evidence of psychosis. said he does not sleep well and he did not have much of an appetite. he is not suicidal. patient has been
prescribed trazodone for sleep and presumably a benzo prior to admit. noted he was placed on taper schedule of ativan since coming here. noted i did review dh prior admits and visits and i could find no mention of confusion /dementia although mri
and cat scans of the brain suggest senescent changes
past psych hx see above patient does have hx depression but as per dr lopez's eval in 2022 he has never been hosp. see that note where he is described as having had multiple bout of hyponatremia worsened by depression medications
medical hx patient was hyponatremic today as well sodium is 128. patient has hx htn a fib hld cardiomyopathy bph ascvd hx tia hx anemia niddm osteoarthritis restrictive lung disease colonic polyps copd mri and cat brain show atrophy/ischemic
changes ecg abnomral w nl qtc
family hx denied
substance abuse denied he did tell dr lopez in october 2022 eval that he had hx of alcoholism but sober many years.
social hx patient lives alone in his appt. works at [employer] see dr lopez's note re childhood in [place]. worked for [employer]. unmarried no kids two sibs but little contact. states he does have friends
mse alert ox3 but clearly confused. speech disjointed at times. relatively sparse verbalizations mood is neutral affect constricted no si no overt psychosis patient clearly impaired cognitively. he was unable to do three digits back four
digits forward. could not give me more than one word beginning with 'f' one of the questions in the moca. could not do similiarities. could recall zero of there objects even at one minute. insight and judgment lacking
dx tme of unknown etiology vs dementia
recommendation this patient clearly is cognitively impaired. is it longstanding? i do not know. it is curious that he says he works 32 hours weekly a [employer]. i would like to have been able to call them to see how he does but then there is
hippa. i will call his brother but he told me he does not have a lot of contact w him. the number of his friend who brought him to er is not in the chart. he is still hyponatremic. he allegedly just had a sz. he takes benzos these things could
account for his cognitive decline as can effects of amiodarone possibly but i suspect he has been on it for some time. a this moment i would hesitated given his cognitive state to dc him to home alone. PT and OT should assess as well. one concern
if patient was on xanax for a long period of time it is difficult to detox from xanax..worse than the other benzos and sometimes cross taper with ativan is less effective. will see him in the am
--- NOTE | 2025-03-05 15:38 | W.PN.UPDATE ---
Addendum entered and electronically signed by Yue Ruggiero MD 03/05/25 15:51:
pdmp lists ativan one mg #90 dispensed twice one scrip in december one in january. i had pharmacy check last fill ativan one in december 2024 and january 27 2025 both #90 there was a xanax scrip from 2022.
Original Note:
Update Note
Progress Note Update
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 brother said he was 'normal' a couple of weeks ago so this is NOT longstanding dementia. it could be the combination of
benzos and hyponatremia. brother says 'he is very well respected at [employer]' brother says 'that sodium deficiency knocked him out a few years ago. '
--- NOTE | 2025-03-05 15:55 | CM ---
Psychiatry saw patient.
Pt is confused but can recall that he works at [employer] 32 hr /week.As per psychiatry note brother said pt respected at work.
He lives alone . His brother is in [place] .
PT indicates SNF. OT indicates out pt PT.
Will contact [facility] with Psychiatry eval and concerns .
Pt insists he can return home,
Pt is aware he can not drive and he said he made arrangement for rides.
CM will continue to assess and assist with discharge planning.
PLAN Discharge plan on going
[2025-03-05] MEDS: LASIX 20 MG PO (16:11)
[2025-03-05] MEDS: LOVENOX 40 MG SC (17:20)
[2025-03-05] MEDS: MELATONIN 5 MG PO (21:39)
[2025-03-06] VITALS (7 sets, daily range): BP systolic 107–151; BP diastolic 68–84
[2025-03-06] MEDS: PACERONE 100 MG PO (05:47)
[2025-03-06 07:25] LABS: Hematocrit 37.1 % (39.0-52.0); Hemoglobin 13.1 g/dL (13.0-18.0); Mean Corp Hgb Conc. 35.3 g/dL (33.0-37.0); Mean Corpuscular Volume 88.8 fL (80.0-94.0); Platelet Count 254 10^3/uL (130-400); Red Cell Dist. Width 13.2 % (11.5-14.5)
[2025-03-06] MEDS: ATIVAN 0.25 MG PO ×2 (07:52→19:15)
[2025-03-06] MEDS: FLOMAX 0.4 MG PO (07:53)
[2025-03-06] MEDS: ZESTRIL 20 MG PO (07:53)
[2025-03-06] MEDS: SODIUM CHLORIDE 1 GRAM PO ×2 (07:53→19:14)
[2025-03-06] MEDS: LIPITOR 40 MG PO (07:54)
--- NOTE | 2025-03-06 08:01 | W.PN.HOSP.TC ---
Today's Communication/Plan
-
see A/P
Assessment / Plan
Assessment / Plan
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 However, Bora
who speaks to patient every day states pt came on his own. Per Bora, patient was stating he was unable to find his Xanax prior to coming in.
CT head 02/25/25: No acute intracranial abnormality
MRI 02/27/25: No acute intracranial abnormality noted. Chronic senescent changes.
A/P:
# Acute Anxiety with confusion
Suspect secondary not being able to find Xanax prescription. Dr Penn received information from patient's friend, Boraprincess Pereyra (phone # [phone]) who reports that patient has had increasing memory loss. They speak every day but Bora lives in the
[place].
MRI obtained without acute abnormality
patient is not an SSRI candidate 2/2 hyponatremia
restarted benzo (CHARGE ACCOUNT CLERK Ativan 1 mg TID), with plan to taper off before discharge as it is felt unsafe for this patient with memory issue to go home (he lives alone) with benzo
# ACTIVITY THERAPIST with 3 seizures on 03/01 due to benzo withdrawal
Seizure activity aborted with IV valium 5mg (s/p 2 doses)
Since then benzo changed from Xanax to Ativan, cont plan to taper to off prior to DC
# Chronic Memory Loss, likely severe dementia
patient lives alone. PT appreciated no skilled needs. OT noted significant cognitive impairment.
patient does not have family that lives close by (brother lives in [place] and they are not close).
Dr Penn discussed with Bora, that patient will benefit from having more people check in on him once discharged.
Discussed with patient need to avoid driving at this time and follow up with primary care provider for clearance to resume driving. After some repetition, patient was able to verbalize his understanding to avoid driving and willingness to comply
with recommendations. Patient arranged his own transportation for discharge with friends and also verbalized plan to have friends transport his vehicle home for him
Appreciate Psych input
# Paroxysmal A-fib
Went into A fib
Continue amiodarone
patient is not on oral AC
Card CS
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
urine studies show SIADH
cont current fluid restriction and salt tab BID
s/p Samsca
Sodium level stable at 128 today
Nephrology consult appreciated
# History of reported TIA
Continue Lipitor 40 mg daily
patient is not on aspirin or NOAC at home
# HTN
resume CHARGE ACCOUNT CLERK lisinopril 20 mg daily
Monitor BP
# COPD no acute exacerbation
# Former smoker
Continue Symbicort
# Asthma no acute exacerbation
# BPH
Continue Flomax
# N/V overnight 03/03
Pt denies to abd pain
AXR XR 03/04 noted Moderate amount of fecal material throughout the colon and rectum.
started Miralax and Senokot-S
s/p 1 dose dulcolax
constipation resolved
check repeat AXR 03/06
DVT prophylaxis: Lovenox SQ
Full code
Dispo: pt declines memory care unit, wants to go home. Have requested CM to reach out to [facility] to look into [facility]'s social situation.
DW RN
DW Psych
total time 51 min
Anticipated Discharge: 24 - 48 hours
Subjective/Interval History
-
Date of Service: March 06, 2025
Objective Data
-
Labs:
Laboratory Results
03/06/25
06:11
WBC 9.6
Hgb 13.1
Hct 37.1 L
Plt Count 254
Sodium Pending
Potassium Pending
Chloride Pending
Carbon Dioxide Pending
BUN Pending
Creatinine Pending
Glucose Pending
Calcium Pending
Vital Signs:
Vital Signs
Temp Pulse Resp BP Pulse Ox
36.8 C 121 16 121/84 99
03/06/25 03:10 03/06/25 07:53 03/06/25 03:10 03/06/25 07:53 03/06/25 03:10
I&O
03/05/25 03/06/25 03/07/25
06:59 06:59 06:59
Intake Total 1045 / 1045 360 / 360
Output Total 1540 / 1540 1050 / 1050
Balance -495 / -495 -690 / -690
Review of Systems
-
Unable to obtain full review of systems at this time due to: Dementia
History Source: Patient
All other systems: Reviewed and negative
Physical Exam
-
General: Well Developed, Well Nourished, No Apparent Distress, Comfortable and Conversant
HEENT: Normocephalic, Atraumatic and Hearing Impaired
Respiratory: Clear to Auscultation and Non Labored Respirations; Negative Wheezes or Accessory Resp Muscle Use
Cardiac: Regular Rhythm and S1/S2
GI: Soft, Nontender, Nondistended and Normal Bowel Sounds
Skin: Warm and Dry; Negative Rash
Neuro: Awake and Alert
Psych: Calm and Apparent Dementia
Data Reviewed
-
Labs: Labs Reviewed by me
[2025-03-06 08:04] LABS: Blood Urea Nitrogen 19 mg/dl (9-20); Calcium 9.4 mg/dl (8.4-10.2); Carbon Dioxide 20 mmol/L (22-30); Chloride 98 mmol/L (98-107); Estimated Creatinine Clearance 71 ml/min; Glucose 104 mg/dl (70-99); Magnesium 1.8 mg/dl (1.6-2.3); Potassium 3.9 mmol/L (3.5-5.1); Sodium 128 mmol/L (135-145); eGFR > 60.00
[2025-03-06] MEDS: SYMBICORT 80/4.5 MCG INHALER 1 PUFF INH ×2 (08:16→19:36)
--- NOTE | 2025-03-06 08:38 | CON.CAR ---
Addendum entered and electronically signed by Joey Galicia MD 03/06/25 15:48:
I saw and examined the patient.
The Boat Engines Installer's note was reviewed and I agree with the note.
Comment:
GEN: No distress, awake, confused
HEENT: supple, anicteric, mmm
LUNGS: CTA, no wheezes/rales
CV: Irreg, S1/S2, 1/6 syst LSB, no gallop
ABD: soft, BS+, NT/ND
EXT: No edema
NEURO: Gross non-focal
SKIN: No rash
Plan:
84-year-old male with past medical history of paroxysmal atrial fibrillation, history of TIA, hyperlipidemia, hypertension, and history of alcohol use presents with confusion and hyponatremia. Patient has a long history of hyponatremia and is being
treated for SIADH. Patient had MRI of the brain which was overall unremarkable but then had a rapid response with seizures x 3 attributed to benzodiazepine withdrawal. Patient at that point was found to be in A-fib with modestly elevated
ventricular rates.
Check echocardiogram. Increase amiodarone 40 mg p.o. twice daily. Will also start Toprol 25 mg daily. Will hold lisinopril for now. Continue to follow on telemetry.
CHADS VASc is 5. He has historically declined anticoagulation but with history of TIA and recurrent atrial fibrillation he is agreeable now to start Eliquis 5 mg p.o. twice daily. MRI of the brain was overall unremarkable.
He continues to have hyponatremia with a sodium of 128. You are treating him with fluid restriction and salt tablets. Continue Lasix 20 mg every other day. He did receive a dose of Samsca.
Original Note:
Consultation
Consultation Request
Date/Time Consultation Requested: 03/06/2025 at 0803
Date/Time Consultation Performed: 03/06/2025 at 0930
Requesting Provider: Dr. Cooley
Performing Provider: Dr. Galicia
Reason for Consultation: Recurrent paroxysmal Afib
Medical History
-
History of Present Illness:
Patient was initially admitted on 02/25/2025 with confusion and cardiology is now consulted on 03/06/2025 for recurrence of A-fib first seen on 03/05/2025. Patient was initially admitted on 02/25/2025 with confusion and hyponatremia. Patient has a
history of hyponatremia. At time of admission it was unclear if there was an underlying diagnosis of dementia, a close friend reported there had been increasing changes in forgetfulness and memory lapses, but with the patient's brother who he is
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 Regardless patient had MRI of the brain 02/25/2025 that showed no acute changes and patient was slated for discharge to home, but
then had a rapid response on 03/01/2025 for seizure x 3 that was attributed to benzodiazepine withdrawal. Patient was transferred to [facility] yesterday and later in the day was noted to have a change on telemetry and he was back in A-fib.
PMH:
Paroxysmal A-fib
Previously not chronically anticoagulated by patient choice
h/o TIA
Hyperlipidemia
h/o Alcohol abuse
Anxiety
Aortic atherosclerosis
Anemia
Past Medical History
Past Medical History: Other (in HPI)
Past Surgical History: Orthopedic
Social History
Tobacco: Former Smoker
Alcohol: Former
Drug: None
Personal: Single
Living: Alone
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
Family History
Family History: Reviewed & Not Pertinent
Allergies / Home Medications
Allergy/AdvReac Type Severity Reaction Status Date / Time
No Known Allergies Allergy Verified 02/25/25 15:16
�Medication �Instructions �Recorded �Confirmed �Type
amiodarone 200 mg tablet 200 mg PO QMWF Arrhythmia 11/11/22 02/25/25 History
atorvastatin 40 mg tablet (Lipitor) 40 mg PO DAILY High Cholesterol 11/11/22 02/25/25 History
tamsulosin 0.4 mg capsule (Flomax) 0.4 mg PO DAILY Urinary Issue 11/11/22 02/25/25 History
testosterone 1 % (25 mg/2.5 gram) 1 packet transdermal DAILY 11/11/22 02/25/25 History
transdermal gel packet
trazodone 50 mg tablet 25 mg PO HS Sleep 11/11/22 02/25/25 History
amiodarone 100 mg tablet 100 mg PO SUTUTHSA 03/02/23 02/25/25 History
budesonide-formoterol HFA 80 1 inh inhalation R BID 03/02/23 02/25/25 History
mcg-4.5 mcg/actuation aerosol Lung/Breathing Issues
inhaler (Symbicort)
lisinopril 20 mg tablet 20 mg PO DAILY Blood Pressure 03/02/23 02/25/25 History
Review of Systems
-
History Source: Patient
All other systems: Negative unless noted
Physical Exam
Vital Signs
Temp Pulse Resp BP Pulse Ox
97.9 F 68 16 121/84 97
03/06/25 07:05 03/06/25 08:18 03/06/25 08:18 03/06/25 07:53 03/06/25 08:18
GEN: NAD. AAOx3
HEENT: EOMI, MMM
LUNGS: RA. CTA B/L, no wheeze
CV: Afib on tele. Irreg irreg, S1/S2, no murmur
ABD: soft, BS+, NT, ND
EXT: No clubbing, cyanosis, lesions or edema B/L
NEURO: Gross non-focal
SKIN: Warm, dry and pink. No rash
Lab Results
03/06/25 06:11
03/06/25 06:11
Troponin I < 0.012 ng/ml 03/01/25 15:29
Impression / Plan
-
PCP Dr. Kathrin Underwood
Cardiology: Dr. Damian Grant, last seen 01/09/2024
Impression:
Admitted with confusion and hyponatremia 02/25/2025
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
Hyponatremia
Recurrence of A-fib with RVR 03/05/2025
Paroxysmal A-fib
Previously not chronically anticoagulated by patient choice
h/o TIA
Hyperlipidemia
h/o Alcohol abuse
Anxiety
Aortic atherosclerosis
Echo 04/11/2023: EF 55 to 60%, stage II diastolic dysfunction, mild MR, mild peak/mean 24/13 mmHg, mild aortic regurgitation
Echo 03/06/25: Study pending
Plan:
-Patient was initially admitted on 02/25/2025 with confusion and cardiology is now consulted on 03/06/2025 for recurrence of A-fib first seen on 03/05/2025. Patient was initially admitted on 02/25/2025 with confusion and hyponatremia. Patient has a
history of hyponatremia. At time of admission it was unclear if there was an underlying diagnosis of dementia, a close friend reported there had been increasing changes in forgetfulness and memory lapses, but with the patient's brother who he is
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 Regardless patient had MRI of the brain 02/25/2025 that showed no acute changes and patient was slated for discharge to home, but
then had a rapid response on 03/01/2025 for seizure x 3 that was attributed to benzodiazepine withdrawal. Patient was transferred to E yesterday and later in the day was noted to have a change on telemetry and he was back in A-fib.
-ECG from 03/05/2025 as we reviewed by me today and shows A-fib with RVR, QTc 398 ms. Telemetry then reviewed by me and patient remains in A-fib, but overall HR is improved to about 108 bpm
-Patient has h/o TIA and has recurred with paroxysmal A-fib, [id number] score is 5. Will start Eliquis 5 mg BID (age 84, Cre 0.8, wt 78.6 kg).
-Task to case management to check on cost, it looks like patient is using commercial insurance from his employer and so he may be able to use the co-pay card.
-A-fib recurred on 03/05/2025 in the afternoon and he remains in A-fib as of 03/06/2025. Patient is asymptomatic. Outpatient dose of amiodarone was 200 mg daily Monday and 100 mg daily all other days. Due to recurrence of A-fib
that is ongoing and rates are rapid at times we are increasing amiodarone to 400 mg BID during this admission. Recommend amiodarone 200 mg BID for 2 weeks at discharge (until 03/20/2025) and then decrease to 200 mg daily thereafter
-Last echo was 04/11/2023 and was reviewed by me and summarized above. Repeat echo, ordered by me
-Nephrology notes reviewed by me, they are managing hyponatremia with fluid restriction. Patient has a history of hyponatremia as well
-Psychiatry is also following along with the patient, his friend that brought him said there have been some concerns about worsening memory, but patient's brother did not corroborate.
-Case management and PT/OT notes reviewed by me. Does not clear if patient is going home or will go to rehab first. Complicating matters is that he has no spouse or children, but he has a brother although they are not particularly close and he has
a lot of friends.
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
--- NOTE | 2025-03-06 11:05 | W.PN.NEPH.PH ---
Today's Communication / Plan
-
Maintain fluid restriction Lasix and salt tablets follow BMP
Assessment/Plan
-
Impression:
Acute on chronic euvolemic hyponatremia (126)
Change of mental status
History of depression and anxiety
History of atrial fibrillation
History of hypertension
History of COPD
BPH
Seizure 03/01/25
Plan:
Hyponatremia:
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
- Maintain fluid restriction and salt tablets bid
- s/p 7.5 mg of Samsca on 02/28, sodium unchanged at 128
-I will maintain Lasix 20 mg every other day
-can discharge on 48oz fluid restriction and salt
- I do not think his mental status changes due to hyponatremia which has been persistent even prior to admission and he likely has a reset osmostat
HTN:
- Maintain lisinopril
Change of mental status
- Given chronic hyponatremia and serum sodium on presentation of 128, I doubt his change of mental status is due to hyponatremia
- MRI and CT without notable findings
- TSH within normal limits
- Alcohol negative on tox screen
-
-
-
Date of Service: March 06, 2025
CC / HPI / ROS
-
Chief Complaint:
Hyponatremia
History of Present Illness:
Blood pressure controlled on lisinopril
Serum sodium down to 128
Seizure on 03/01
metabolic acidosis stable
Review of Systems:
Nonoliguric
No chest pain or shortness of breath
no fevers
Labs
-
Labs:
WBC 9.6 10^3/uL (4.8-10.8) 03/06/25 06:11
RBC 4.18 10^6/uL (4.70-6.10) L 03/06/25 06:11
Hgb 13.1 g/dL (13.0-18.0) 03/06/25 06:11
Hct 37.1 % (39.0-52.0) L 03/06/25 06:11
Plt Count 254 10^3/uL (130-400) 03/06/25 06:11
Sodium 128 mmol/L (135-145) L 03/06/25 06:11
Potassium 3.9 mmol/L (3.5-5.1) 03/06/25 06:11
Chloride 98 mmol/L (98-107) 03/06/25 06:11
Carbon Dioxide 20 mmol/L (22-30) L 03/06/25 06:11
BUN 19 mg/dl (9-20) 03/06/25 06:11
Creatinine 0.8 mg/dL (0.7-1.3) 03/06/25 06:11
eGFR > 60.00 03/06/25 06:11
Glucose 104 mg/dl (70-99) H 03/06/25 06:11
Calcium 9.4 mg/dl (8.4-10.2) 03/06/25 06:11
Phosphorus 4.0 mg/dl (2.5-4.5) 03/03/25 05:56
Albumin 4.2 g/dl (3.5-5.0) 02/26/25 07:11
Physical Exam
-
Vital Signs:
Vital Signs
Temp Pulse Resp BP Pulse Ox
97.9 F 68 16 121/84 97
03/06/25 07:05 03/06/25 08:18 03/06/25 08:18 03/06/25 07:53 03/06/25 08:18
Cardiovascular:: Regular rate and rhythm
Respiratory:: Bilateral: Coarse
Abdomen:: Nontender and Soft
Bowel Sounds:: Normal
Extremity Edema:: None: Bilateral:
Oneill Catheter: No
[2025-03-06] MEDS: ELIQUIS 5 MG PO ×2 (11:53→19:14)
[2025-03-06] MEDS: VITAMIN B1 100 MG PO (11:53)
--- NOTE | 2025-03-06 12:24 | PTOTSP ---
Speech Therapy Evaluation
Pt admitted for confusion and hyponatremia. Pt lived alone and worked prior to admission. Pt wears hearing aids bilaterally, however, continues to have difficulty hearing. Presents with acute changes in cognition resulting in increased confusion and
memory loss. No new findings on Head CT or MRI. Per Nephrology, hyponatremia likely not the result of change in mental status. Pt likely has reset osmostat. Documented seizure on 03/01/2025. �Pt scored 13/30 on MOCA (normal� >26). Based on the
cognitive-communication assessment, pt demo deficits in comprehension, working memory, recall, verbal/visual reasoning, judgement, and problem solving. Pt demo very limited insight into deficits.�
Recommendations
1. Speech to follow up for cognitive retraining therapy
2. Continue to review and/or provide�information regarding outpatient services
[2025-03-06] MEDS: PACERONE 200 MG PO (12:49)
--- NOTE | 2025-03-06 14:02 | W.CHA2DS2VAS ---
[id number] Score
Score
Age in Years (65=0, 65-74=1, >/=75=2): > or = 75
Sex (Female=+1): Male
Congestive Heart Failure History (Yes=+1): No
Hypertension History (Yes=+1): Yes
Stroke/TIA/Thromboembolism History (Yes=+2): Yes
Vascular Disease History (Yes=+1): No
Diabetes Mellitus (Yes=+1): No
Score >/=2 is otherwise an anticoagulation candidate: 5
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
--- NOTE | 2025-03-06 15:58 | VNURNOTE ---
Chart reviewed. Appears that DC dispo still pending. Met with patient at bedside. Explained [facility] services including homebound criteria to patient. Patient stated that he intends on returning to work paul after DC. 'I have to pay my rent.' He
stated that he could 'walk to work if I can't drive.' He understands that VN would not be covered to see him at home if he returns to work.
[facility] referral accepted in [facility], will follow along if plans change.
--- NOTE | 2025-03-06 16:29 | CM ---
PT on hold due to Afib.
Psychiatry continues to see patient.
Pt is confused and said he is going home alone . Margaret from [facility] did see patient.
He lives alone. He said [facility] but refused SNF.
Spoke with Beba [phone] from [facility] about patient . She said till he is discharge with concerns a referral will not made . Will need to call [facility] with his discharge plan.
Pt is aware he can not drive and he said he made arrangement for rides.
Will need PT OT eval when medically ready to assist with discharge.
PLAN Discharge plan on going
[2025-03-06] MEDS: MIRALAX 17 GRAMS PO (16:50)
[2025-03-06] MEDS: SENOKOT-S 1 TABLET PO (16:50)
[2025-03-06] MEDS: TOPROL XL 25 MG PO (16:50)
[2025-03-06] MEDS: PACERONE 400 MG PO (19:14)
[2025-03-06] MEDS: DULCOLAX 10 MG RECTAL (20:45)
[2025-03-06] MEDS: MELATONIN 5 MG PO (22:30)
[2025-03-07] VITALS (9 sets, daily range): BP systolic 95–159; BP diastolic 60–92
[2025-03-07] MEDS: SYMBICORT 80/4.5 MCG INHALER 1 PUFF INH ×2 (07:21→20:22)
[2025-03-07 07:56] LABS: Blood Urea Nitrogen 17 mg/dl (9-20); Calcium 9.5 mg/dl (8.4-10.2); Carbon Dioxide 21 mmol/L (22-30); Chloride 96 mmol/L (98-107); Estimated Creatinine Clearance 81 ml/min; Glucose 115 mg/dl (70-99); Magnesium 1.8 mg/dl (1.6-2.3); Potassium 4.2 mmol/L (3.5-5.1); Sodium 126 mmol/L (135-145); eGFR > 60.00
[2025-03-07] MEDS: SODIUM CHLORIDE 1 GRAM PO ×2 (08:39→20:25)
[2025-03-07] MEDS: VITAMIN B1 100 MG PO (08:39)
[2025-03-07] MEDS: PACERONE 400 MG PO ×2 (08:39→20:21)
[2025-03-07] MEDS: LIPITOR 40 MG PO (08:40)
[2025-03-07] MEDS: ATIVAN 0.25 MG PO (08:40)
[2025-03-07] MEDS: FLOMAX 0.4 MG PO (08:40)
[2025-03-07] MEDS: TOPROL XL 25 MG PO (08:40)
[2025-03-07] MEDS: ELIQUIS 5 MG PO ×2 (08:41→20:21)
[2025-03-07] MEDS: SAMSCA 30 MG PO (09:52)
--- NOTE | 2025-03-07 11:36 | W.PN.HOSP.TC ---
Today's Communication/Plan
-
see A/P
Assessment / Plan
Assessment / Plan
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 However, Bora
who speaks to patient every day states pt came on his own. Per Bora, patient was stating he was unable to find his Xanax prior to coming in.
CT head 02/25/25: No acute intracranial abnormality
MRI 02/27/25: No acute intracranial abnormality noted. Chronic senescent changes.
A/P:
# Acute Anxiety with confusion
Suspect secondary not being able to find Xanax prescription. Dr Penn received information from patient's friend, Bora Pereyra (phone # [phone]) who reports that patient has had increasing memory loss. They speak every day but [place]ora lives in the
[place].
MRI obtained without acute abnormality
patient is not an SSRI candidate 2/2 hyponatremia
restarted benzo (MONOMER PURIFICATION OPERATOR Ativan 1 mg TID), with plan to taper off before discharge as it is felt unsafe for this patient with memory issue to go home (he lives alone) with benzo
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
Seizure activity aborted with IV valium 5mg (s/p 2 doses)
Since then benzo changed from Xanax to Ativan, cont plan to taper to off prior to DC
Pt with unusual generalized motor movement again 03/07 noted by his neighbor's family; unclear if this is seizure vs dementia. Following the abnormal motor movement, he was briefly unresponsive, then returned to baseline awake and conversant.
d/w Neuro Dr Mckeon, who felt this could be related to his dementia (common in Lewy body dementia)
I have ordered EEG, can follow up
# Chronic Memory Loss, likely severe dementia
patient lives alone. PT appreciated no skilled needs. OT noted significant cognitive impairment.
patient does not have family that lives close by (brother lives in [place] and they are not close).
Dr Penn discussed with Bora, that patient will benefit from having more people check in on him once discharged.
Discussed with patient need to avoid driving at this time and follow up with primary care provider for clearance to resume driving. After some repetition, patient was able to verbalize his understanding to avoid driving and willingness to comply
with recommendations. Patient arranged his own transportation for discharge with friends and also verbalized plan to have friends transport his vehicle home for him
Appreciate Psych input
Appreciate neuro input, felt this is dementia
# Paroxysmal A-fib
Went into A fib
Amiodarone increased to 400 mg BID
started Eliquis 5 mg BID
Follow echo report
Card on board
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
urine studies show SIADH
cont current fluid restriction and salt tab BID
s/p Samsca
Sodium level stable, today at 126
Samsca today
Nephrology consult appreciated
# History of reported TIA
Continue Lipitor 40 mg daily
patient is not on aspirin or NOAC at home
# HTN
resume MONOMER PURIFICATION OPERATOR lisinopril 20 mg daily
Monitor BP
# COPD no acute exacerbation
# Former smoker
Continue Symbicort
# Asthma no acute exacerbation
# BPH
Continue Flomax
# N/V overnight 03/03
# Severe constipation
repeat AXR XR 03/06 showed persistent moderate fecal material in colon, mostly in the region of rectum. Increased.
Resume Miralax and Senokot-S BID ATC and give another dose of Dulcolax
check follow up AXR 03/07
DVT prophylaxis: Lovenox SQ
Full code
Dispo: pt declines memory care unit, wants to go home. Have requested CM to reach out to [employer] to look into pt's social situation.
DW RN
DW Neuro
total time 51 min
Anticipated Discharge: 24 - 48 hours
Subjective/Interval History
-
Date of Service: March 07, 2025
Objective Data
-
Labs:
Laboratory Results
03/07/25
06:18
Sodium 126 L
Potassium 4.2
Chloride 96 L
Carbon Dioxide 21 L
BUN 17
Creatinine 0.7
Glucose 115 H
Calcium 9.5
Vital Signs:
Vital Signs
Temp Pulse Resp BP Pulse Ox
36.7 C 76 16 137/92 98
03/07/25 07:00 03/07/25 08:39 03/07/25 07:21 03/07/25 08:39 03/07/25 08:45
I&O
03/06/25 03/07/25 03/08/25
06:59 06:59 06:59
Intake Total 360 / 360 1080 / 1080
Output Total 1050 / 1050 850 / 850
Balance -690 / -690 230 / 230
Review of Systems
-
Unable to obtain full review of systems at this time due to: Dementia
History Source: Patient
All other systems: Reviewed and negative
Physical Exam
-
General: Well Developed, Well Nourished, No Apparent Distress, Comfortable and Conversant
HEENT: Normocephalic, Atraumatic and Hearing Impaired
Respiratory: Clear to Auscultation and Non Labored Respirations; Negative Wheezes or Accessory Resp Muscle Use
Cardiac: Regular Rhythm and S1/S2
GI: Soft, Nontender, Nondistended and Normal Bowel Sounds
Skin: Warm and Dry; Negative Rash
Neuro: Awake and Alert
Psych: Calm and Apparent Dementia
Data Reviewed
-
CT Scan: Report Reviewed by me
MRI: Report Reviewed by me
Labs: Labs Reviewed by me
[2025-03-07 11:40] LABS: Glucose - Point of Care 123 mg/dl (70-99)
--- NOTE | 2025-03-07 11:48 | W.PN.CARDCBS ---
Addendum entered and electronically signed by Joey Galicia MD 03/07/25 14:45:
I saw and examined the patient.
The Survey Rodman's note was reviewed and I agree with the note.
Comment:
GEN: Confused and not following commands EEG in place
HEENT: supple, anicteric, mmm
LUNGS: CTA, no wheezes/rales
CV: irreg, S1/S2, 1/6 syst LSB, no murmur
ABD: soft, BS+, NT/ND
EXT: No edema
NEURO: No overt power deficits
SKIN: No rash
Plan:
Patient with another episode of likely seizure. Currently obtaining EEG.
With active seizures will hold Eliquis for next 24 hours.
Ventricular rates are improved. Continue amiodarone 40 mg p.o. twice daily and Toprol 25 mg daily.
He continues to have hyponatremia with a sodium of 126. Repeat lab work with change in mental status.
Neurology now following. Brain MRI 1 week ago overall unremarkable.
? Need for repeat brain imaging
Echocardiogram with ejection fraction of 50%, mild to moderate MR and mild aortic valve disease. Overall unremarkable.
Original Note:
Today's Communication / Plan
-
Patient appeared to have active seizure witnessed by myself, hospitalist and neurology notified
Emergent EEG
Continue [id number] mg twice a day
EKG in a.m. to follow QTc
Ongoing monitoring of hyponatremia
Impression / Plan
-
PCP Dr. Kathrin Underwood
Cardiology: Dr. Damian Grant, last seen 01/09/2024
Impression:
Admitted with confusion and hyponatremia 02/25/2025
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
Hyponatremia
Recurrence of A-fib with RVR 03/05/2025
Paroxysmal A-fib
Previously not chronically anticoagulated by patient choice
h/o TIA
Hyperlipidemia
h/o Alcohol abuse
Anxiety
Aortic atherosclerosis
Echo 04/11/2023: EF 55 to 60%, stage II diastolic dysfunction, mild MR, mild peak/mean 24/13 mmHg, mild aortic regurgitation
Echo 03/06/25: pending
Plan:
-Admitted with confusion and hyponatremia 02/25, found to have seizures 03/01/2025
-I was in the room examining patient and talking with him. He was conversing appropriately. Patient then started stuttering and had shaking of his right arm with somewhat of a blank stare. I went to get nursing. Upon returning patient was having
active seizure. Hospitalist Dr. Cooley as well as neurology Dr. Mckeon personally notified by myself. Emergent EEG has been ordered and neurology will be seeing patient.
-MRI this admission showed no acute intracranial abnormality with chronic senescent changes.
-Found to have paroxysmal atrial fibrillation on admission. Had episode of A-fib with rapid ventricular response 03/05/2025 A-fib with RVR, QTc 398 ms. Amiodarone increased to 400 mg twice a day on 03/06/2025.
-Telemetry reviewed by me and patient remains in A-fib, but overall HR is improved to to 100's bpm. Continue Amio load.
-Recommend amiodarone 200 mg BID for 2 weeks at discharge (until 03/20/2025) and then decrease to 200 mg daily thereafter
-Patient has h/o TIA and has recurred with paroxysmal A-fib, [id number] score is 5. New to Eliquis 5 mg BID (age 84, Cre 0.8, wt 78.6 kg) 03/07/2025.
-Task to case management to check on cost, it looks like patient is using commercial insurance from his employer and so he may be able to use the co-pay card.
-Last echo was 04/11/2023. Repeat echo pending
-Patient has history of hyponatremia. Sodium ranging from 128, now 126. Nephrology following. Continue with fluid restriction. Patient did receive Samsca 02/28/2025. If drops further may benefit from an additional dose of Samsca. Defer to
nephrology
-Neurology notes and psychiatry notes reviewed by me. Possibly polypharmacy contributing some to his confusion but likely has underlying dementia
-Case management and PT/OT notes reviewed by me. Department of aging has been notified. Still not clear if home or will go to rehab first. Patient likely would benefit from skilled rehab. Complicating matters is that he has no spouse or
children, but he has a brother although they are not particularly close and he has a lot of friends.
Total time with patient, discussion with hospitalist, neurology, nursing was 51 minutes
HPI 03/06/2025:
Patient was initially admitted on 02/25/2025 with confusion and cardiology is now consulted on 03/06/2025 for recurrence of A-fib first seen on 03/05/2025. Patient was initially admitted on 02/25/2025 with confusion and hyponatremia. Patient has a
history of hyponatremia. At time of admission it was unclear if there was an underlying diagnosis of dementia, a close friend reported there had been increasing changes in forgetfulness and memory lapses, but with the patient's brother who he is
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 Regardless patient had MRI of the brain 02/25/2025 that showed no acute changes and patient was slated for discharge to home, but
then had a rapid response on 03/01/2025 for seizure x 3 that was attributed to benzodiazepine withdrawal. Patient was transferred to [facility] yesterday and later in the day was noted to have a change on telemetry and he was back in A-fib.
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
Subjective
Date of Service: March 07, 2025
Patient seen and examined. Patient conversing appropriately but then developed a peroid stuttering of speech with somewhat of a blank stare and shaking of his right arm.
Objective
Labs:
03/06/25 06:11
03/07/25 06:18
Labs
Hgb 13.1 g/dL (13.0-18.0) 03/06/25 06:11
Hct 37.1 % (39.0-52.0) L 03/06/25 06:11
Plt Count 254 10^3/uL (130-400) 03/06/25 06:11
PT 14.6 Sec (11.4-14.6) 03/01/25 15:29
INR 1.11 03/01/25 15:29
APTT 24.0 Sec (23.4-35.0) 03/01/25 15:29
Sodium 126 mmol/L (135-145) L 03/07/25 06:18
Potassium 4.2 mmol/L (3.5-5.1) 03/07/25 06:18
BUN 17 mg/dl (9-20) 03/07/25 06:18
Creatinine 0.7 mg/dL (0.7-1.3) 03/07/25 06:18
Glucose 115 mg/dl (70-99) H 03/07/25 06:18
Vital Signs and I&O:
Vital Signs
Temp Pulse Resp BP Pulse Ox
98.1 F 76 16 137/92 98
03/07/25 07:00 03/07/25 08:39 03/07/25 07:21 03/07/25 08:39 03/07/25 08:45
Vital Signs
Temp Pulse Resp BP Pulse Ox
98.1 F 76 16 137/92 98
03/07/25 07:00 03/07/25 08:39 03/07/25 07:21 03/07/25 08:39 03/07/25 08:45
Intake & Output
03/05/25 03/06/25 03/07/25 03/08/25
06:59 06:59 06:59 06:59
Intake Total 1045 / 1045 360 / 360 1080 / 1080
Output Total 1540 / 1540 1050 / 1050 850 / 850
Balance -495 / -495 -690 / -690 230 / 230
Physical Exam
Physical Exam
GEN: Initially alert oriented conversing then developed a blank stare and stuttering of speech
HEENT: supple, anicteric, mmm
LUNGS: CTA, no wheezes/rales
CV: Irregularly irregular, S1/S2, 1/6 syst murmur
ABD: soft, BS+, NT/ND
EXT: No edema, clubbing or cyanosis
NEURO: Initially conversing however then developed stuttering and blank stare with shaking of right arm
SKIN: No rash
--- NOTE | 2025-03-07 11:55 | PTCARENOTE ---
Pt had a change in mentation and speech. I advised the MD Cooley of the change for me. MD came to see the pt and the pt spoke to MD. No stroke alert called per MD. Neuro aware and MD aware. BP 159/92 HR 73 99%ra, BS 123.
--- NOTE | 2025-03-07 12:14 | W.PN.NEPH.PH ---
Today's Communication / Plan
-
Samsca
Assessment/Plan
-
Impression:
Acute on chronic euvolemic hyponatremia (126)
Change of mental status
History of depression and anxiety
History of atrial fibrillation
History of hypertension
History of COPD
BPH
Seizure 03/01/25
Plan:
Hyponatremia:
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
- Maintain fluid restriction and salt tablets bid
- s/p 7.5 mg of Samsca on 02/28,
-can discharge on 48oz fluid restriction and salt
- I do not think his mental status changes due to hyponatremia which has been persistent even prior to admission and he likely has a reset osmostat
Sodium is now down to 126
I will give 30 mg of Samsca
-
-
Date of Service: March 07, 2025
CC / HPI / ROS
-
Chief Complaint:
Hyponatremia
History of Present Illness:
Blood pressure controlled on lisinopril
Serum sodium down to 128
Seizure on 03/01
metabolic acidosis stable
Review of Systems:
Nonoliguric
No chest pain or shortness of breath
no fevers
Labs
-
Labs:
WBC 9.6 10^3/uL (4.8-10.8) 03/06/25 06:11
RBC 4.18 10^6/uL (4.70-6.10) L 03/06/25 06:11
Hgb 13.1 g/dL (13.0-18.0) 03/06/25 06:11
Hct 37.1 % (39.0-52.0) L 03/06/25 06:11
Plt Count 254 10^3/uL (130-400) 03/06/25 06:11
Sodium 126 mmol/L (135-145) L 03/07/25 06:18
Potassium 4.2 mmol/L (3.5-5.1) 03/07/25 06:18
Chloride 96 mmol/L (98-107) L 03/07/25 06:18
Carbon Dioxide 21 mmol/L (22-30) L 03/07/25 06:18
BUN 17 mg/dl (9-20) 03/07/25 06:18
Creatinine 0.7 mg/dL (0.7-1.3) 03/07/25 06:18
eGFR > 60.00 03/07/25 06:18
Glucose 115 mg/dl (70-99) H 03/07/25 06:18
Calcium 9.5 mg/dl (8.4-10.2) 03/07/25 06:18
Phosphorus 4.0 mg/dl (2.5-4.5) 03/03/25 05:56
Albumin 4.2 g/dl (3.5-5.0) 02/26/25 07:11
Physical Exam
-
Vital Signs:
Vital Signs
Temp Pulse Resp BP Pulse Ox
98.3 F 73 16 159/92 99
03/07/25 11:00 03/07/25 11:00 03/07/25 11:00 03/07/25 11:00 03/07/25 11:00
Cardiovascular:: Regular rate and rhythm
Respiratory:: Bilateral: Coarse
Abdomen:: Nontender and Soft
Bowel Sounds:: Normal
Extremity Edema:: None: Bilateral:
Oneill Catheter: No
[2025-03-07] MEDS: VALIUM INJECTION 5 MG IV (12:31)
--- NOTE | 2025-03-07 12:35 | PTCARENOTE ---
Pt rounding, came in to the rook to find pt in an active seizure. Approx 2-3 minutes, MD and Neuro made aware, Valium admin. 98% ra, BP 130/83, HR 99, Neuro bedside at this time. Awaiting EEG.
[2025-03-07 12:37] LABS: Glucose - Point of Care 132 mg/dl (70-99)
--- NOTE | 2025-03-07 12:42 | W.PN.NEURO.1 ---
Today's Communication / Plan
-
Urgent EEG
Advance thiamine dosing from by mouth to IV
Provide loading dose of levetiracetam followed by 1000 mg twice a day routinely
Consider continuous EEG monitoring
Obtain new MRI of brain with and without contrast
Check lumbar puncture
Goal of normal natremia
Neuro Assessment/Plan
Assessment
Abrupt onset of worsening confusion
Most likely the patient is experiencing either Lewy body dementia or Alzheimer's type dementia based on the unclear timeframe of onset of symptoms.
New episode of seizure described as generalized tonic-clonic lasting for approximately 2 minutes before total resolution on 03/07/2025
Plan
Urgent EEG
Advance thiamine dosing from by mouth to IV
Provide loading dose of levetiracetam followed by 1000 mg twice a day routinely
Consider continuous EEG monitoring
Obtain new MRI of brain with and without contrast
Check lumbar puncture
Goal of normal natremia
Will follow
Subjective/Objective
Subjective Data
Date of Service: March 07, 2025
Patient reports no symptoms. Called to see patient due to 2-minute episode of generalized tonic-clonic shaking followed by clarity of thinking and then by lack of clarity of thought
Objective Data
Vital Signs
Temp Pulse Resp BP Pulse Ox
36.8 C 73 16 159/92 99
03/07/25 11:00 03/07/25 11:00 03/07/25 11:00 03/07/25 11:00 03/07/25 11:00
Lab Results
03/06/25 06:11
03/07/25 06:18
PT 14.6 Sec (11.4-14.6) 03/01/25 15:29
INR 1.11 03/01/25 15:29
APTT 24.0 Sec (23.4-35.0) 03/01/25 15:29
Sodium 126 mmol/L (135-145) L 03/07/25 06:18
Potassium 4.2 mmol/L (3.5-5.1) 03/07/25 06:18
BUN 17 mg/dl (9-20) 03/07/25 06:18
Glucose 115 mg/dl (70-99) H 03/07/25 06:18
Calcium 9.5 mg/dl (8.4-10.2) 03/07/25 06:18
Phosphorus 4.0 mg/dl (2.5-4.5) 03/03/25 05:56
LDL Cholesterol, Calc 62 mg/dl 02/26/25 07:11
Vitamin B12 690 pg/ml (239-931) 02/26/25 07:11
Ur Buprenorphine Cancelled 02/25/25 20:30
Patient Allergies
No Known Allergies Allergy (Verified 02/25/25 15:16)
Review of Systems
-
Unable to obtain full review of systems at this time due to: Dementia
History Source: Patient
All other systems: Reviewed and negative
Neuro: Negative Dizzy or Headache
Physical Exam
-
General: No Apparent Distress and Appears Stated Age
Eyes: Round OU, [place] Conjunctivae and No Ptosis
HEENT: Anicteric and Moist Mucous Membranes
Neck: Full Range of Motion
Respiratory: No Dyspnea
Cardiac: No JVD
GI: Non-distended
Skin: Unremarkable
Extremities: No Clubbing, No Cyanosis and No Edema
Psych: Negative Intact Judgement/Insight
Extended Neurological Exam
Mood & Affect: Affect Unremarkable and Depressed
Attention Span & Concentration: Awake, Alert and Interactive
Memory: Able to Recall (Month and year), Reduced (For current location) and Unable to Recall Personal History
Tremor: Hand Tremor Absent and Head Tremor Absent
Speech: Dysarthric (Mildly with low volume) and Pressured
Cranial Nerve II: Left Eye: Pupillary Size Unremarkable and Visual Chun Grossly Intact
Cranial Nerve II: Right Eye: Pupillary Size Unremarkable and Visual Chun Grossly Intact
Cranial Nerves III, IV, : Extraocular Movement: Grossly Intact
Cranial Nerve VII: Facial Symmetry: Normal Facial Symmetry
Cranial Nerve VIII: Hearing: Unremarkable Hearing to Normal Conversational Volume
Cranial Nerve XI: Shoulder Shrug: Unremarkable
Muscle Strength, Overall: Spontaneously Moves
Muscle Bulk & Tone: Bulk Unremarkable and Tone Unremarkable
Touch Sensation: Unremarkable
Coordination: Reaches for Objects without Difficulty
Data Reviewed
-
MRI Head: Ordered
Labs: Ordered
Reviewed with: Physician and Patient
Old Records: Summarized
Past History
Past History
ED Past Medical History: Arrthythmia (atrial fibrillation), Asthma, COPD, HTN and Other (Seizure); Negative Valvular disease
ED Past Surgical History: Cardiac and Orthopedic (arthritis)
Patient has exhibited threatening behavior?: No
Social History
Tobacco: Former smoker
Alcohol: None
Drug: None
Personal:
Living: with family
Employment: Employed
Family History
Family History: Other (ICH)
Medications
-
Medications:
Generic Name Dose Route Start Last Admin
Trade Name Freq PRN Reason Stop Dose Admin
Amiodarone HCl 400 mg 03/06/25 20:00 03/07/25 08:39
Amiodarone 200 Mg Tablet PO 04/03/25 19:59 400 mg
BID LUIS Administration
Apixaban 5 mg 03/06/25 11:30 03/07/25 08:41
Apixaban (Eliquis) 5 Mg Tablet PO 04/03/25 11:29 5 mg
BID LUIS Administration
Atorvastatin Calcium 40 mg 02/26/25 08:00 03/07/25 08:40
Atorvastatin (Lipitor) 40 Mg Tablet PO 03/26/25 07:59 40 mg
DAILY LUIS Administration
Bisacodyl 10 mg 03/06/25 20:32 03/06/25 20:45
Bisacodyl 10 Mg Rectal Suppository RECTAL 04/03/25 20:31 10 mg
DAILYPRN PRN Administration
constipation
Budesonide/Formoterol Fumarate 1 puff 02/26/25 08:00 03/07/25 07:21
Symbicort Inhaler 80/4.5 INH 03/26/25 07:59 1 puff
R BID LUIS Administration
Protocol
Calcium Carbonate 200 mg 02/26/25 12:07 03/04/25 20:30
Calcium Antacid 200 Mg (Calcium Carbonate 500 Mg) Chew Tablet PO 03/26/25 12:06 200 mg
Q6HPRN PRN Administration
gastritis
Diazepam 5 mg 03/01/25 15:31 03/07/25 12:31
Diazepam 10 Mg/2 Ml Inj IV 03/29/25 15:30 5 mg
Q6HPRN PRN Administration
seizure
Furosemide 20 mg 03/05/25 15:00 03/05/25 16:11
Furosemide 20 Mg Tablet PO 04/02/25 14:59 20 mg
Q48H LUIS Administration
Levetiracetam 3,000 mg/ Device 30 mls @ 360 mls/hr 03/07/25 12:39
IV 03/07/25 12:43
NOW STA
Levetiracetam 1,000 mg 03/07/25 20:00
Levetiracetam (100 Mg/Ml) 500 Mg/5 Ml Vial IV 04/04/25 19:59
Q12 LUIS
Lorazepam 0.25 mg 03/07/25 08:00 03/07/25 08:40
Lorazepam 0.5 Mg Tablet PO 03/08/25 08:01 0.25 mg
DAILY LUIS Administration
Melatonin 5 mg 03/04/25 22:00 03/06/25 22:30
Melatonin 5 Mg Tablet PO 04/01/25 21:59 5 mg
HS LUIS Administration
Metoprolol Succinate 25 mg 03/06/25 16:00 03/07/25 08:40
Metoprolol 25 Mg Extended Release Tablet PO 04/03/25 15:59 25 mg
DAILY LUIS Administration
Ondansetron HCl 4 mg 03/04/25 08:58
Ondansetron 4 Mg/2 Ml Vial IV 04/01/25 08:57
Q6HPRN PRN
NAUSEA/VOMITING
Polyethylene Glycol 17 grams 03/07/25 11:41
Polyethylene Glycol Powder 17 Grams Packet PO 04/02/25 11:40
DAILY LUIS
Senna/Docusate Sodium 1 tablet 03/07/25 11:41
Docusate W/Senna (Radha-Colace) Tablet PO 04/04/25 11:40
BID LUIS
Sodium Chloride 0 flush 02/26/25 03:00 02/27/25 20:08
Sodium Chloride 0.9% (Flush) Syringe IV 03/26/25 02:59 1 flush
PER PROTOCOL LUIS Administration
Sodium Chloride 1 gram 02/28/25 20:00 03/07/25 08:39
Sodium Chloride 1 Gram Tablet PO 03/28/25 19:59 1 gram
BID LUIS Administration
Tamsulosin HCl 0.4 mg 02/26/25 08:00 03/07/25 08:40
Tamsulosin 0.4 Mg Capsule PO 03/26/25 07:59 0.4 mg
DAILY LUIS Administration
Thiamine HCl 100 mg 03/06/25 12:00 03/07/25 08:39
Thiamine 100 Mg Tablet PO 03/08/25 08:01 100 mg
DAILY LUIS Administration
[2025-03-07] MEDS: KEPPRA 30 MG IV (13:03)
[2025-03-07] MEDS: THIAMINE INJECTION 200 MG IV (13:03)
--- NOTE | 2025-03-07 13:16 | PTCARENOTE ---
Keprra and Thiamibne IV admin, EEG in progress bedside, MRI pending
--- NOTE | 2025-03-07 14:10 | W.PN.UPDATE ---
Update Note
Progress Note Update
patient seen chart reviewed. discussed with nursing. patient suffered a witnessed sz this am. the patient was in the process of having an eeg when seen . 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 eventually sz focus noted. there was a
conspicous change in his demeanor yesterday. he was at that time very pleasant and while still confused he was able to engage quite well. today he is more confused and obviously post ictal. i do not have the impression that mr prater suffers from
long standing dementia based on my conversations with his friend mr cole and his brother. 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 while that does not qualify him to be a [employer] it does mean that he was not severely demented. unclear what precipitated sz. considered ativan wd but his vital signs and his demeanor especially
yesterday would not be authorization representative necessarily of withdrawal. serum sodium continues low which seems to be a longstanding issue. noted lp has been ordered. definitely would not consider antidepressants in this case at this point.
[2025-03-07 14:40] LABS: Hematocrit 33.8 % (39.0-52.0); Hemoglobin 12.2 g/dL (13.0-18.0); Mean Corp Hgb Conc. 36.1 g/dL (33.0-37.0); Mean Corpuscular Volume 86.2 fL (80.0-94.0); Nucleated Red Blood Cells % 0 % (-); Platelet Count 245 10^3/uL (130-400); Red Cell Dist. Width 12.9 % (11.5-14.5)
[2025-03-07] MEDS: VIMPAT 200 MG IV ×2 (14:50→20:11)
--- NOTE | 2025-03-07 14:59 | PTCARENOTE ---
Pt going for LP, MD and Neuro aware of interruption in EEG monitoring for LP. Pt will go down with transport to IR.
[2025-03-07 15:03] LABS: ALT (SGPT) 29 U/L (0-50); AST (SGOT) 33 U/L (17-59); Albumin 3.7 g/dl (3.5-5.0); Alkaline Phosphatase 72 U/L (38-126); Blood Urea Nitrogen 18 mg/dl (9-20); Calcium 9.4 mg/dl (8.4-10.2); Carbon Dioxide 20 mmol/L (22-30); Chloride 100 mmol/L (98-107); Estimated Creatinine Clearance 81 ml/min; Glucose 120 mg/dl (70-99); Potassium 4.1 mmol/L (3.5-5.1); Sodium 126 mmol/L (135-145); Total Protein 6.2 g/dl (6.3-8.2); eGFR > 60.00
--- NOTE | 2025-03-07 16:20 | CM ---
Prior to seizure this am this CM spoke with patient at bedside.
Pt lives alone .Pt said he wants to go home at discharge and he is not concerned about falling at home.'I want to go forward.'He said he did not want to go to a SNF.
PT on hold.
Psychiatry continues to see patient.
Neurology involved.
At discharge call [facility] about patient with discharge plan.
At this time VN is set up for home.
PLAN Discharge plan on going
--- NOTE | 2025-03-07 16:31 | EEG.RPT ---
Electroencephalogram Report
Recording
Date of EE03/07/25
Type of EEG: Routine
Length of EEG recordin minutes
Done with Video Recording: Yes
Patient Status: Inpatient
Recording Conditions: Awake and Drowsy
Hyperventilation Performed: No
Photic Stimulation Performed: No
Report
GREATER THAN 1 HOUR EEG REPORT
EEG INTERPRETATION:
Severely abnormal EEG due to development of near continuous 1/s sharp wave discharges from the left frontocentral region consistent with nonconvulsive status epilepticus
CLINICAL CORRELATION:
This study was suggestive of a left frontocentral epileptiform focus in addition to seizure activity which was disruptive to left hemispheric function. Clinical correlation is advised.
METHODS:
A 21 channel digitized electroencephalogram (EEG) was performed at the bedside. The 10/20 international system of electrode placement was used with ECG and lateral/vertical eye movements recorded. Video was recorded. The [employer] quantitative EEG
system was utilized.
ELECTROENCEPHALOGRAPHER IMPRESSION(S):
Quality of study
Good becoming fair due to muscle artifact and movement artifact
Background
There was an unremarkable anterior-posterior voltage gradient of alpha frequency.
There were no significant asymmetries of background activity noted.
Sleep
Drowsiness present
ECG
Normal sinus rhythm
Abnormal activity
As the record progressed there was a sudden change in the record beginning on page 231 at which time there were low amplitude becoming high amplitude left frontocentral sharp wave discharges which appear to be disorganized at times and of a
frequency of up to 3/s. This change persisted through the end of the study
--- NOTE | 2025-03-07 17:07 | PTCARENOTE ---
IRAD note: Patient had LP done but only able to remove a drop of CSF (< 0.5ml). Dr. Mckeon notified to prioritize CSF labs but he wanted to send CSF for everything that is ordered for. sample sent to lab. 4E nurse Sera notified.
--- NOTE | 2025-03-07 17:10 | PTCARENOTE ---
Pt is transferring to higher level of care. He is going to room 3342 and report given to Malik CHENG
--- NOTE | 2025-03-07 18:03 | PTCARENOTE ---
Patient received from . Patient just arrived from MRI, unable to complete due to restlessness. Continuous EEG leads mostly off, tech coming in to reset. Patient is on Room Air. Mitts ordered, 1:1 requested to help keep EEG leads in place.
Poor appetite. Oriented to room to best ability. Call villegas in reach.
[2025-03-07] MEDS: LASIX PO (18:25)
[2025-03-07] MEDS: KEPPRA 1000 MG IV (20:09)
[2025-03-07] MEDS: VALIUM INJECTION 1.25 MG IV (20:13)
[2025-03-07] MEDS: MELATONIN 5 MG PO (20:24)
[2025-03-07] MEDS: SENOKOT-S 1 TABLET PO (20:25)
[2025-03-07] MEDS: NSS 1000 IV (20:29)
--- NOTE | 2025-03-07 20:30 | PTCARENOTE ---
Caring for pt overnight. pt improved from his mentation at change of shift. he is no longer restless in bed, confused, agitated, unable to hold conversation. Pt is aaox3, knows he is at [facility], knows the year, knows his birthday, but
still having a confused conversation. VSS. Bp's running soft. Pt able to finish dinner and take PO meds, no issues. IV seizure meds given. EEG continues to monitor. Bilateral mitts and 1:[address] for pt safety. Afib on monitor. Remains RA.
[2025-03-08] VITALS (16 sets, daily range): BP systolic 84–143; BP diastolic 51–96
--- NOTE | 2025-03-08 02:00 | PTCARENOTE ---
Pt very agitated. confused, swinging at staff, trying to remove EEG monitoring. Bilateral mitt restraints changed to soft limb bilateral wrists. VSS. 1:1 with patient. Will monitor.
[2025-03-08] MEDS: VALIUM INJECTION 5 MG IV (02:09)
--- NOTE | 2025-03-08 02:13 | PTCARENOTE ---
Seizure activity noted around this time. Pt stopped talking, staring, low mumbling & stopped following commands. PRN valium given, after given pt speaking again but still confused and unable to hold a conversation. VSS. EEG monitoring.
[2025-03-08] MEDS: NSS 1000 IV ×2 (05:26→17:42)
[2025-03-08 06:16] LABS: INR 1.29; PT 16.4 Sec (11.4-14.6)
[2025-03-08 06:27] LABS: Blood Urea Nitrogen 18 mg/dl (9-20); Calcium 9.9 mg/dl (8.4-10.2); Carbon Dioxide 23 mmol/L (22-30); Chloride 106 mmol/L (98-107); Estimated Creatinine Clearance 57 ml/min; Glucose 110 mg/dl (70-99); Potassium 3.9 mmol/L (3.5-5.1); Sodium 136 mmol/L (135-145); eGFR > 60.00
[2025-03-08] MEDS: SYMBICORT 80/4.5 MCG INHALER INH (07:34)
--- NOTE | 2025-03-08 07:40 | W.PN.HOSP.TC ---
Today's Communication/Plan
-
see A/P
Assessment / Plan
Assessment / Plan
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 However, Bora
who speaks to patient every day states pt came on his own. Per Bora, patient was stating he was unable to find his Xanax prior to coming in.
CT head 02/25/25: No acute intracranial abnormality
MRI 02/27/25: No acute intracranial abnormality noted. Chronic senescent changes.
A/P:
# Acute Anxiety with confusion
Suspect secondary not being able to find Xanax prescription. Dr Penn received information from patient's friend, Boraprincess Pereyra (phone # [phone]) who reports that patient has had increasing memory loss. They speak every day but Bora lives in the
[place].
MRI obtained without acute abnormality
patient is not an SSRI candidate 2/2 hyponatremia
restarted benzo (SENIOR PRIVATE CLIENT ADVISOR Ativan 1 mg TID), with plan to taper off before discharge as it is felt unsafe for this patient with memory issue to go home (he lives alone) with benzo
# LINESPERSON with ?seizures on 03/01 due to benzo withdrawal
# Seizure disorder confirmed on EEG
Seizure activity aborted with IV valium 5mg (s/p 2 doses)
Pt with unusual generalized motor movement again noted 03/07, stat EEG noted left frontocentral region nonconvulsive status epilepticus
Started Keppra, cont 1000 mg BID
Started Vimpat, cont 200 mg BID
Continuous EEG
LP ordered by Neuro
MRI brain with and without contrast ordered by Neuro
Cont current low dose benzo (now IV Valium 1.25 mg BID with NPO) with plan to eventually taper off before discharge.
Neuro on board
NPO, SPL eval prior to restarting diet, IVF while NPO
# Memory Loss, possible dementia
patient lives alone. PT appreciated no skilled needs. OT noted significant cognitive impairment.
patient does not have family that lives close by (brother lives in [place] and they are not close).
Discussed with patient need to avoid driving at this time and follow up with primary care provider for clearance to resume driving. After some repetition, patient was able to verbalize his understanding to avoid driving and willingness to comply
with recommendations. Patient arranged his own transportation for discharge with friends and also verbalized plan to have friends transport his vehicle home for him
Appreciate Psych input
Appreciate neuro input
# Paroxysmal A-fib
Went into A fib
Amiodarone increased to 400 mg BID
started Eliquis 5 mg BID
Echo largely unrevealing: EF 50% Compared to a prior study from 04/11/23 The LVEF has decreased from 60% to 50%. The mitral regurgitation is also worsened somewhat and is now in the mild to moderate range.
Card on board
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
urine studies showed SIADH
s/p Samsca PRN per renal
Sodium level stable, today at 136
Nephrology consult appreciated
cont fluid restriction and salt tab BID when restarting diet
# History of reported TIA
# HTN
resumed SENIOR PRIVATE CLIENT ADVISOR lisinopril 20 mg daily
Monitor BP
# COPD no acute exacerbation
# Former smoker
Symbicort
# Asthma no acute exacerbation
# BPH
Flomax
# Severe constipation
cont bowel regimen Miralax and Senokot-S BID ATC when NPO lifted
check follow up AXR 03/07
DVT prophylaxis: Lovenox SQ while eliquis held
Full code
Dispo: pt declines memory care unit, wants to go home. Have requested CM to reach out to [employer] to look into pt's social situation.
DW RN
DW brother on the phone
total time 51 min
Anticipated Discharge: > 48 hours
Subjective/Interval History
-
Date of Service: March 08, 2025
Objective Data
-
Labs:
Laboratory Results
03/08/25
05:27
PT 16.4 H
INR 1.29
Sodium 136 D
Potassium 3.9
Chloride 106
Carbon Dioxide 23
BUN 18
Creatinine 1.0
Glucose 110 H
Calcium 9.9
Vital Signs:
Vital Signs
Temp Pulse Resp BP Pulse Ox
36.6 C 79 29 98/63 100
03/08/25 03:25 03/08/25 06:00 03/08/25 06:00 03/08/25 06:00 03/08/25 06:00
I&O
03/07/25 03/08/25 03/09/25
06:59 06:59 06:59
Intake Total 1080 / 1080
Output Total 850 / 850 1150 / 1150
Balance 230 / 230 -1150 / -1150
Review of Systems
-
Unable to obtain full review of systems at this time due to: Acuity
Physical Exam
-
General: Well Developed, Well Nourished, No Apparent Distress and Comfortable
HEENT: Normocephalic and Atraumatic
Respiratory: Clear to Auscultation and Non Labored Respirations; Negative Wheezes or Accessory Resp Muscle Use
Cardiac: Regular Rhythm and S1/S2
GI: Soft, Nontender, Nondistended and Normal Bowel Sounds
Skin: Warm and Dry; Negative Rash
Psych: Calm and Confused
Data Reviewed
-
CT Scan: Report Reviewed by me
MRI: Report Reviewed by me
Labs: Labs Reviewed by me
--- NOTE | 2025-03-08 08:10 | W.PN.CARDCBS ---
Today's Communication / Plan
-
Continues to have current seizures. Remains on IV Keppra and Vimpat
A-fib remains rate controlled. Continue amiodarone and Toprol.
[id number] score is high but with continuous seizures we will hold on Eliquis for 24 hours until seizures improve
MRI of the brain today. Continues with IV Valium
Sodium improved status post Samsca
Continues to do poorly.
Impression / Plan
-
PCP Dr. Kathrin Underwood
Cardiology: Dr. Damian Grant, last seen 01/09/2024
Impression:
Admitted with confusion and hyponatremia 02/25/2025
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
Hyponatremia
Recurrence of A-fib with RVR 03/05/2025
Paroxysmal A-fib
Previously not chronically anticoagulated by patient choice
h/o TIA
Hyperlipidemia
h/o Alcohol abuse
Anxiety
Aortic atherosclerosis
Echo 04/11/2023: EF 55 to 60%, stage II diastolic dysfunction, mild MR, mild peak/mean 24/13 mmHg, mild aortic regurgitation
Echo 03/06/25: EF 50%, mild to moderate MR, mild AI, PA pressure 20
Plan:
- Continues to struggle with seizures. Neurology following with continuous EEG monitoring. Remains on IV Keppra and IV Vimpat
- A-fib is rate controlled this morning. Would continue amiodarone and metoprolol for now. Will decrease amiodarone to 200 mg p.o. twice daily in AM.
- [id number] score is high but with continuous seizures will hold Eliquis for today and continue to follow his clinical status.
- Patient is status post lumbar puncture.
- Continue atorvastatin and low-dose Lasix.
- Sodium is significantly improved to 136 status post Samsca
- I agree that hyponatremia is likely not the etiology for his seizures and mental status issues.
- Echo was reviewed which has a preserved ejection fraction and mild to moderate valvular disease. Once he recovers from this would consider stress testing as outpatient.
HPI 03/06/2025:
Patient was initially admitted on 02/25/2025 with confusion and cardiology is now consulted on 03/06/2025 for recurrence of A-fib first seen on 03/05/2025. Patient was initially admitted on 02/25/2025 with confusion and hyponatremia. Patient has a
history of hyponatremia. At time of admission it was unclear if there was an underlying diagnosis of dementia, a close friend reported there had been increasing changes in forgetfulness and memory lapses, but with the patient's brother who he is
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 Regardless patient had MRI of the brain 02/25/2025 that showed no acute changes and patient was slated for discharge to home, but
then had a rapid response on 03/01/2025 for seizure x 3 that was attributed to benzodiazepine withdrawal. Patient was transferred to [facility] yesterday and later in the day was noted to have a change on telemetry and he was back in A-fib.
Progress Note - Sail Repair Person
Subjective
Date of Service: March 08, 2025
Continues to have seizures with EEG monitoring. Is confused. Denies pain.
Objective
Labs:
03/07/25 14:13
03/08/25 05:27
Labs
Hgb 12.2 g/dL (13.0-18.0) L 03/07/25 14:13
Hct 33.8 % (39.0-52.0) L 03/07/25 14:13
Plt Count 245 10^3/uL (130-400) 03/07/25 14:13
PT 16.4 Sec (11.4-14.6) H 03/08/25 05:27
INR 1.29 03/08/25 05:27
APTT 24.0 Sec (23.4-35.0) 03/01/25 15:29
Sodium 136 mmol/L (135-145) D 03/08/25 05:27
Potassium 3.9 mmol/L (3.5-5.1) 03/08/25 05:27
BUN 18 mg/dl (9-20) 03/08/25 05:27
Creatinine 1.0 mg/dL (0.7-1.3) 03/08/25 05:27
Glucose 110 mg/dl (70-99) H 03/08/25 05:27
Vital Signs and I&O:
Vital Signs
Temp Pulse Resp BP Pulse Ox
98 F 79 29 98/63 100
03/08/25 03:25 03/08/25 06:00 03/08/25 06:00 03/08/25 06:00 03/08/25 06:00
Vital Signs
Temp Pulse Resp BP Pulse Ox
98 F 79 29 98/63 100
03/08/25 03:25 03/08/25 06:00 03/08/25 06:00 03/08/25 06:00 03/08/25 06:00
Intake & Output
03/06/25 03/07/25 03/08/25 03/09/25
06:59 06:59 06:59 06:59
Intake Total 360 / 360 1080 / 1080
Output Total 1050 / 1050 850 / 850 1150 / 1150
Balance -690 / -690 230 / 230 -1150 / -1150
Physical Exam
Physical Exam
GEN: In soft padded bed. EEG monitoring in place confused
HEENT: supple, anicteric, mmm
LUNGS: CTA, no wheezes/rales
CV: irreg, S1/S2, 1/6 syst LSB, no gallop
ABD: soft, BS+, NT/ND
EXT: No edema
NEURO: Confused, following simple commands
SKIN: No rash
[2025-03-08] MEDS: VALIUM INJECTION 1.25 MG IV ×2 (09:48→20:01)
[2025-03-08] MEDS: VIMPAT 200 MG IV ×2 (09:48→19:57)
[2025-03-08] MEDS: KEPPRA 1000 MG IV ×2 (09:49→19:55)
[2025-03-08] MEDS: PACERONE 400 MG PO ×2 (11:04→19:59)
[2025-03-08] MEDS: SODIUM CHLORIDE 1 GRAM PO ×2 (11:04→19:59)
[2025-03-08] MEDS: LIPITOR 40 MG PO (11:04)
[2025-03-08] MEDS: TOPROL XL 25 MG PO (11:05)
[2025-03-08] MEDS: VITAMIN B1 100 MG PO (11:05)
[2025-03-08] MEDS: FLOMAX 0.4 MG PO (11:05)
--- NOTE | 2025-03-08 11:09 | W.PN.NEPH.PH ---
Today's Communication / Plan
-
AM labs
Assessment/Plan
-
Impression:
Acute on chronic euvolemic hyponatremia (126)
Change of mental status
History of depression and anxiety
History of atrial fibrillation
History of hypertension
History of COPD
BPH
Seizure 03/01/25
Plan:
Hyponatremia:
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
- Maintain fluid restriction and salt tablets bid
- s/p 7.5 mg of Samsca on 02/28,
Sodium has normalized with Samsca 30 mg
Mental status still altered status post LP but sample size may not be adequate
-
-
Date of Service: March 08, 2025
CC / HPI / ROS
-
Chief Complaint:
Hyponatremia
History of Present Illness:
Blood pressure controlled on lisinopril
Serum sodium down to 128
Seizure on 03/01
metabolic acidosis stable
Review of Systems:
Nonoliguric
No chest pain or shortness of breath
no fevers
Labs
-
Labs:
WBC 7.6 10^3/uL (4.8-10.8) 03/07/25 14:13
RBC 3.92 10^6/uL (4.70-6.10) L 03/07/25 14:13
Hgb 12.2 g/dL (13.0-18.0) L 03/07/25 14:13
Hct 33.8 % (39.0-52.0) L 03/07/25 14:13
Plt Count 245 10^3/uL (130-400) 03/07/25 14:13
Sodium 136 mmol/L (135-145) D 03/08/25 05:27
Potassium 3.9 mmol/L (3.5-5.1) 03/08/25 05:27
Chloride 106 mmol/L (98-107) 03/08/25 05:27
Carbon Dioxide 23 mmol/L (22-30) 03/08/25 05:27
BUN 18 mg/dl (9-20) 03/08/25 05:27
Creatinine 1.0 mg/dL (0.7-1.3) 03/08/25 05:27
eGFR > 60.00 03/08/25 05:27
Glucose 110 mg/dl (70-99) H 03/08/25 05:27
Calcium 9.9 mg/dl (8.4-10.2) 03/08/25 05:27
Phosphorus 4.0 mg/dl (2.5-4.5) 03/03/25 05:56
Albumin 3.7 g/dl (3.5-5.0) 03/07/25 14:13
Physical Exam
-
Vital Signs:
Vital Signs
Temp Pulse Resp BP Pulse Ox
98 F 81 17 107/63 100
03/08/25 03:25 03/08/25 10:07 03/08/25 10:07 03/08/25 10:07 03/08/25 10:07
Cardiovascular:: Regular rate and rhythm
Respiratory:: Bilateral: Coarse
Abdomen:: Nontender and Soft
Bowel Sounds:: Normal
Extremity Edema:: None: Bilateral:
Oneill Catheter: No
[2025-03-08] MEDS: DEPACON 70 MG IV (13:16)
--- NOTE | 2025-03-08 15:02 | PTCARENOTE ---
Pt's assessment as documented. Aox3 but confused and agitated at times. Afib on tele monitor. Pt impulsive and with restless movements, pulling off EEG leads with movement. D/w neurologist, supervisor assembly room called for special systems technician to replace leads. IVF
infusing as ordered. 1:1 remains present. B/L soft wrist restraints in place, see intervention. Bed alarm in place for safety.
--- NOTE | 2025-03-08 15:13 | W.PN.UPDATE ---
Update Note
Progress Note Update
Tried to have an conversation with the patient but he was mumbling and unable to answer . He was also slightly agitated. Will order Depakote level.
Will continue F/U.
--- NOTE | 2025-03-08 16:54 | PTOTSP ---
Speech Therapy Evaluation
Spoke with RN who stated pt is very lethargic. Cleared to be seen by speech-language therapy for bedside swallow evaluation. Pt sleeping upon arrival but was awoken with tactile stimulation. Pt given 1:1 supervision due to fluctuating mental
status.� Pt mumbled and demonstrated some word finding difficulty, characterized by nonspecific words (thing), fillers (um), and hesitations. Pt agreeable and alert enough for trials of PO. Pt managed trials of puree, regular, and thins with no
overt s/sx of aspiration. Pt impulsive and benefitted from verbal reminders to slow rate. Pt at risk for aspiration given change in mental status, seizure activity, fluctuating level of alertness, and history of COPD.�
Recommendations
1. IDDSI 6 Soft and bite sized, IDDSI 0 Thin liquids
2. Meds as tolerated�
3. Standard aspiration precautions
4. Close supervision during meals due to fluctuating level of alertness, impulsivity, and confusion.
5. Speech to follow up�
--- NOTE | 2025-03-08 16:55 | EEGC.RPT ---
Continuous EEG Report
Recording
Start Date of Data Reviewed: 03/07/25
Start Time of Data Reviewed: 14:13
End Date of Data Reviewed: 03/08/25
End Time of Data Reviewed: 14:00
Type of EEG: Continuous
Done with Video Recording: Yes
Study Sequence: Initiation of Study
Electrocardiogram: Irregularly Irregular
Report
Clinical Background:�84 year old man with seizures
Introduction: An emergent EEG was done using International 10-20 electrode placement protocol.
Background: In the most alert state, the PDR is 9-10 Hz in frequency with normal amplitude. There is spontaneous variability and reactivity.�
Sleep: some spindles are seen
Focal/epileptiform: Lateralized periodic discharges (LPD) are seen left frontocentral max negativity at F3, ~1/second
Seizure: the seizure consists of rhythmic delta activity 3-4 Hz, with some overriding fast activity lasting ~5 minutes
Narrative: at the beginning of the study, ~2:30 pm the LPD is seen at F3. around 3 pm it goes away, and there is generalized slowing with sleep spindles. ~4pm the patient pulls off the electrodes. they are reconnected at 7pm at which time the LPD
returns. ~8 pm the LPD goes away, and his EEG is essentially normal with a 9-10 Hz PDR. at 9:40 pm he has a left hemispheric seizure lasting ~5 mins. After the seizure ends, there is interictal LPD. he has another similar durations seizure ~10:20
and 11:30 pm. at 1:30 am, the patient removes the F3 electrode.
Impression: highly epileptogenic zone in left frontocenral region, and EEG seizures.
--- NOTE | 2025-03-08 17:15 | W.PN.NEURO.1 ---
Addendum entered and electronically signed by Zack Ortiz MD 03/08/25 21:27:
earlier this evening I spoke with ID for consult tomorrow to prioritize CSF studies after cells/chem/PCR.
evening EEG review: 5:30 pm his eeg back in status epilepticus. I re evaluated patient ~8:15 pm and spoke to RN He got his sz meds ~8 pm, and his exam went from nonverbal to babbling nonsense. he is Still in nonconvulsive status. He can take po so
I�m gonna load Topamax 400 PO, 4th seizure med, but I don�t think that will do it and he needs something stronger.
he is declining rapidly and I'm sending him to MICU, I spoke with Samantha Marie DELICATESSEN MANAGER and since I�m trying not to tube him, we will load Ketamine 1/kg and then start a drip 1/kg. spoke with psych - no concern for ketamine, no active psych issues, does
not believe patient has dementia
In any case, at this point, he�s not getting MRI tonight, so he will stay on the EEG because we will lose his physical exam once we start ketamine.
tomorrow he will need to come off EEG for brain MRI, and then hopeful for LP tomorrow, though based on his rapid decline we may need to treat empirically tomorrow.
additional minutes spent managing this critically ill patient with non convulsive status epilepticus re-evaluating patient, medical decision making, discussing with RN, hospitalist, psych, ICU
Original Note:
Today's Communication / Plan
-
this afternoon in nonconvulsive status epilepticus, requiring more and more sz meds
concern for encephalitis
need MRI, can come off EEG for MRI (leads not compatible)
needs repeat LP
loaded valproate. continue vimpat, Keppra, valproate
Neuro Assessment/Plan
Assessment
Abrupt onset of worsening confusion
New episode of seizure described as generalized tonic-clonic lasting for approximately 2 minutes before total resolution on 03/07/2025
Exam very fluctuating based on whether or not he is actively seizing.
compared to yesterday his condition is worsening, in that today the EEG seizure activity is now spreading to his right hemisphere, this afternoon now in nonconvulsive status epilepticus and he is requiring more meds to get the seizures controlled
my concern for encephalitis viral vs autoimmune. I don't believe we have solved this case yet
will repeat MRI brain w/ and w/o contrast given worsening condition, and he can come off EEG as it's now pretty clear clinically when he is and is not seizing
will need to repeat LP try to get more CSF at least for cells/chem/PCR after hydration. with his SIADH, being fluid restricted, spoke with nephro ok to rehydrate for LP
AEDs Keppra 1000 BID, Vimpat 200 BID, Depakote 750 q8 at 7a, 3p, 11p, trough ordered with AM labs redose tomorrow
while he was lucid AAOx3 I explained to him my suspicions.
35' crit reviewing history, examining patient, independently reviewing imaging, managing nonconvulsive status epilepticus, discussing with other providers in patient who is worsening
Subjective/Objective
Subjective Data
Date of Service: March 08, 2025
yesterday afternoon he had LP, only got a few drops of CSF, sent to lab and all they could do was culture.
intermittently confused. this morning for RN patient oriented to age/month; to my exam he attends bilaterally but non interactive
EEG Narrative 03/07- at the beginning of the study, ~2:30 pm the LPD is seen at F3. around 3 pm it goes away, and there is generalized slowing with sleep spindles. ~4pm the patient pulls off the electrodes. they are reconnected at 7pm at which time
the LPD returns. ~8 pm the LPD goes away, and his EEG is essentially normal with a 9-10 Hz PDR. at 9:40 pm he has a left hemispheric seizure lasting ~5 mins. After the seizure ends, there is interictal LPD. he has another similar durations seizure
~10:20 and 11:30 pm. at 1:30 am, the patient removes the F3 electrode.
The electrodes were replaced ~2:30, and the EEG looks worse, he is in non convulsive status epilepticus stage 2, consisting of generalized rhythmic delta with intermixed theta. he gets depakote load 2 grams that i ordered earlier 3:16 pm, and by
3:30 pm the EEG seizures have gone away. seen again 5:30 pm and patient AAOx3
Objective Data
Vital Signs
Temp Pulse Resp BP Pulse Ox
37.0 C 78 15 143/96 100
03/08/25 16:34 03/08/25 14:00 03/08/25 14:00 03/08/25 14:00 03/08/25 14:00
Lab Results
03/07/25 14:13
03/08/25 05:27
PT 16.4 Sec (11.4-14.6) H 03/08/25 05:27
INR 1.29 03/08/25 05:27
APTT 24.0 Sec (23.4-35.0) 03/01/25 15:29
Sodium 136 mmol/L (135-145) D 03/08/25 05:27
Potassium 3.9 mmol/L (3.5-5.1) 03/08/25 05:27
BUN 18 mg/dl (9-20) 03/08/25 05:27
Glucose 110 mg/dl (70-99) H 03/08/25 05:27
Calcium 9.9 mg/dl (8.4-10.2) 03/08/25 05:27
Phosphorus 4.0 mg/dl (2.5-4.5) 03/03/25 05:56
LDL Cholesterol, Calc 62 mg/dl 02/26/25 07:11
Vitamin B12 690 pg/ml (239-931) 02/26/25 07:11
Ur Buprenorphine Cancelled 02/25/25 20:30
Patient Allergies
No Known Allergies Allergy (Verified 02/25/25 15:16)
[2025-03-08] MEDS: SYMBICORT 80/4.5 MCG INHALER 1 PUFF INH (17:41)
[2025-03-08] MEDS: LOVENOX 40 MG SC (17:43)
--- NOTE | 2025-03-08 21:55 | PTCARENOTE ---
Report received @ change of shift. Day shift stated that pt has been presenting as normal, nonverbal to garbled speech. As per said reprt pt is A&O x4 when not having active seizures. On initial assessment pt was not following commands and
nonverbal. PERRLA 2 and brisk. PM antiseizure meds provided as ordered inc Valium and Vimpat. After administration pt was incoherently babbling but able to acknowledge that someone was speaking by following the sound of voices. Pt was able to then
take PO meds in applesauce. Diana PANTOJA from neurology came to bedside. Pt was ordered Topamax and tx to ICU for Ketamine gtt. Report was given bedside to Brigitte CHENG and pt was tx. No s/s of acute distress noted.
[2025-03-08] MEDS: TOPAMAX 400 MG PO (22:20)
[2025-03-08] MEDS: MELATONIN 5 MG PO (22:20)
[2025-03-08] MEDS: KETALAR 8 MG IV (22:22)
[2025-03-08] MEDS: KETAMINE HCL 100 MG IV (22:22)
--- NOTE | 2025-03-08 22:47 | PTCARENOTE ---
pt transferred from IMU per neurology due to status epilepticus on cont. EEG. topamax dose given, ketamine gtt initiated after bolus dose. pt with garbled speech, arouses to voice, not following simple commands. pupils 2mm b/l reactive. seizure
precautions in place. b/l soft wrist restraints intact. pt in afib. SCDs on. on RA, diminished breath sounds. pt with BM upon arrival to ICU. CC in place. NS infusing. bed alarm on. care ongoing.
[2025-03-09] VITALS (24 sets, daily range): BP systolic 91–165; BP diastolic 59–94
[2025-03-09] MEDS: DEPACON 57.5 MG IV ×4 (00:14→22:09)
--- NOTE | 2025-03-09 02:22 | W.PN.UPDATE ---
Update Note
Progress Note Update
after prior note, I did my night EEG review at 9:45 pm and noted that at 9:07 pm the EEG stopped while the patient was transferring to ICU. I restarted the computer and restarted the EEG, no change. patient remains in status epilepticus clinically
and on EEG.
15 mins crit care.
~1:55 am spoke with Samantha Marie HAY SORTER, patient conversant, concern for over sedation from from Ketamine,
EEG reviewed: from 10:30-10:40 pm, the seizures improved, and after 10:40 pm no more seizures. EEG looks great. with clinical concern for overtreatment, will lighten ketamine to 0.7. In any case, I'm just buying us time to try to crack this case.
--- NOTE | 2025-03-09 02:26 | PTCARENOTE ---
pt more lethargic overnight, ketamine gtt decreased to 0.7mg/kg/hr per ICU MANAGER NUCLEAR order
[2025-03-09] MEDS: NSS 1000 IV ×2 (03:12→17:11)
[2025-03-09 04:00] LABS: Hematocrit 35.7 % (39.0-52.0); Hemoglobin 12.0 g/dL (13.0-18.0); Mean Corp Hgb Conc. 33.6 g/dL (33.0-37.0); Mean Corpuscular Volume 90.8 fL (80.0-94.0); Platelet Count 252 10^3/uL (130-400); Red Cell Dist. Width 13.5 % (11.5-14.5)
--- NOTE | 2025-03-09 04:10 | W.PN.UPDATE ---
Update Note
Progress Note Update
03/08/25
2044- Patient having increased seizure burden, at the request of neurologist Dr. Ortiz, patient will be transferred to ICU. Plan of care discussed with Dr. Ortiz, will add Topamax for additional antiepileptic medication and start ketamine gtt at
1mg/kg/hr with initial bolus as well. Patient remains on continuous EEG monitoring, periods of nonverbal with seizure activity. Dr. Forte hospitalist updated and ICU transfer orders placed.
03/09/25
0- Called Dr. Ortiz, neurologist, updated patient more sedate and recommended reducing ketamine gtt to 0.7 mg/kg/hr. Orders updated and discussed with RN.
[2025-03-09 04:25] LABS: Depakane 92.8 ug/ml (50.0-120.0)
[2025-03-09 04:28] LABS: Blood Urea Nitrogen 17 mg/dl (9-20); Calcium 9.0 mg/dl (8.4-10.2); Carbon Dioxide 21 mmol/L (22-30); Chloride 112 mmol/L (98-107); Estimated Creatinine Clearance 63 ml/min; Glucose 118 mg/dl (70-99); Magnesium 2.1 mg/dl (1.6-2.3); Potassium 4.2 mmol/L (3.5-5.1); Sodium 139 mmol/L (135-145); eGFR > 60.00
--- NOTE | 2025-03-09 06:03 | PTCARENOTE ---
pt more restless this AM. intermittently responds appropriately to orientation questions. ketamine and NS continue. cont. EEG remains on. care ongoing.
--- NOTE | 2025-03-09 07:16 | CON.INTV ---
Consultation
Consultation Request
Date/Time Consultation Requested: 03/09
Date/Time Consultation Performed: 03/09
Reason for Consultation: Critical care
Medical History
-
History of Present Illness:
History primarily obtained from the chart as patient is currently sleeping, on ketamine drip for ongoing seizure activity. 84-year-old male with history of atrial fibrillation, asthma, hypertension who presents to [facility] on 02/25/2025
with friend after PCP visit. Patient was confused, repeating statements. Upon arrival to [facility], afebrile, pulse 80, breathing at 18, blood pressure 133/69, 96%. ER workup negative the patient was admitted for weakness, hyponatremia
sodium level 128, change in mental status. Extensive hospital stay was reviewed. Patient was seen by nephrology, psychiatry, neurology. Further history obtained from family confirmed patient was taking chronic benzodiazepines at home. Due to
ongoing confusion, neurology was consulted. MRI of the brain 02/27/2025 without acute findings. Patient had possible seizure activity 03/01 thought to be due to benzodiazepine withdrawal. Patient developed abrupt onset of worsening confusion,
patient was loaded with levetiracetam, EEG obtained and lumbar puncture obtained. Patient was subsequently transferred to ICU and loaded with ketamine and ketamine drip started. We are asked to help from critical care standpoint.
Presently patient is on Topamax, levetiracetam, Vimpat, valproate, ketamine
Presently is undergoing continuous EEG monitoring. Per nursing, patient mental status waxes and wanes. Sometimes he speaks clearly, other times he appears to be confused
.
PMH: Atrial fibrillation, asthma/COPD, hypertension, history of hemorrhoidectomy, hernia repair, bilateral knee replacement, sinus polypectomy
Past Medical History
Past Medical History: None (See above)
Past Surgical History: None (See above)
Social History
Tobacco: Former Smoker
Drug: Marijuana
Personal: Single
Living: Alone
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
Family History
Family History: Reviewed & Not Pertinent
Allergies / Home Medications
Allergies
Allergy/AdvReac Type Severity Reaction Status Date / Time
No Known Allergies Allergy Verified 02/25/25 15:16
Home Medications
�Medication �Instructions �Recorded �Confirmed �Last Taken �Type
amiodarone 200 mg tablet 200 mg PO QMWF Arrhythmia 11/11/22 02/25/25 Unknown History
atorvastatin 40 mg tablet (Lipitor) 40 mg PO DAILY High Cholesterol 11/11/22 02/25/25 Unknown History
tamsulosin 0.4 mg capsule (Flomax) 0.4 mg PO DAILY Urinary Issue 11/11/22 02/25/25 Unknown History
testosterone 1 % (25 mg/2.5 gram) 1 packet transdermal DAILY 11/11/22 02/25/25 02/27/23 History
transdermal gel packet
trazodone 50 mg tablet 25 mg PO HS Sleep 11/11/22 02/25/25 Unknown History
amiodarone 100 mg tablet 100 mg PO SUTUTHSA 03/02/23 02/25/25 Unknown History
budesonide-formoterol HFA 80 1 inh inhalation R BID 03/02/23 02/25/25 Unknown History
mcg-4.5 mcg/actuation aerosol Lung/Breathing Issues
inhaler (Symbicort)
lisinopril 20 mg tablet 20 mg PO DAILY Blood Pressure 03/02/23 02/25/25 Unknown History
apixaban 5 mg tablet (Eliquis) 5 mg PO BID Blood clot 03/06/25 Unknown Rx
prevention/tx #60 tabs
Review of Systems
-
Unable to Obtain full review of systems at this time due to: Acuity
All other systems: Negative unless noted
Vitals / Labs / Diagnostic Testing
Vital Signs
Temp Pulse Resp BP Pulse Ox
97.2 F 87 16 144/93 100
03/09/25 03:14 03/09/25 06:00 03/09/25 06:00 03/09/25 06:00 03/09/25 05:00
Lab Data
03/09/25 03:23
03/09/25 03:23
Microbiology
03/07/25 14:08 Csf CSF Culture - Preliminary
NO GROWTH
03/07/25 14:08 Csf Gram Stain - Final
Diagnostic Testing:
Physical Exam
-
HEENT: Normocephalic
Cardiovascular: S1/S2, Regular Rhythm, Murmur (n) and Rub (n)
Respiratory: Wheeze (n), Rales (n), Rhonchi (n) and Non-Labored Respirations
GI: Soft, Non Distended and Non Tender
Neurology: Other (Sleeping, lethargic, currently undergoing continuous EEG)
Skin: Good Color
General: Comfortable
Assessment
-
84-year-old male admitted 02/25/2025 with mental status changes, found to have no abnormalities per imaging, mild hyponatremia, then noted to seizure activity 03/01 aborted with Valium, thought to be due to benzodiazepine withdrawal, then found to
have frontocentral nonconvulsive status epilepticus 03/07 initiated on Keppra, Vimpat, now transferred to ICU with ketamine drip due to ongoing intermittent seizures 03/08/2025
Status epilepticus
Transferred to ICU 03/08 now on ketamine drip
Remains on Topamax, valproate, Vimpat, Keppra IV
Continuous EEG monitoring
Anxiety, confusion, memory loss admitted 02/25
Seizure 03/01 thought to be due to benzodiazepine withdrawal
Chronic Xanax therapy
Brought to hospital by friend Bora Pereyra (phone # [phone])
S/p psychiatry evaluation, questionable dementia?
Hyponatremia
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
Improved
Atrial fibrillation
On amiodarone, beta-jermaine, Eliquis
Mild to moderate mitral regurgitation
Conditions present prior to admission
Questionable history of TIA
Hypertension
COPD/asthma per history
BPH
Chronic constipation
Plan/recommendations
At this time, patient remains critically ill but stable. Extensive workup reviewed
Brain MRI imaging unremarkable for acute process
LP completed 03/07/2025
Moving forward
Continue with antiseizure therapy per neurology
Reviewed at length with neurology, ketamine drip will be increased to 1 mg/kg/hour
Presently patient is sleeping comfortably will need to follow mental status closely
End-tidal CO2 monitoring if able
Will obtain baseline ABG
As possible, head of bed elevated, aspiration precautions
Infectious disease has been consulted
And reviewing with neurology, concern for possible herpes encephalitis
Being considered for empiric acyclovir therapy
Await ID evaluation
Atrial fibrillation noted, on amiodarone
Dose decreased per cardiology
Eliquis therapy is being held due to status epilepticus for now
Cardiology correspondence reviewed
Patient admitted with sodium levels of 126, now improved, thought to be secondary to SIADH
Fluid restriction, salt tablets twice daily, received Samsca 7.5 mg on 02/28
In reviewing records from 2022, patient appears to have chronic hyponatremia 125-132
History of asthma/COPD noted. Continue with inhaler regimen may need to transition to nebulized therapy given mental status changes
Discontinue Symbicort
DuoNebs, budesonide twice daily
DVT prophylaxis: Enoxaparin has been started. Eliquis is being held
GI prophylaxis: Not indicated at this time
Reviewed with critical care nursing
Reviewed with neurology at length
Will follow
TCCT 35 min
[2025-03-09] MEDS: SYMBICORT 80/4.5 MCG INHALER 1 PUFF INH (07:20)
--- NOTE | 2025-03-09 07:44 | W.PN.HOSP.TC ---
Addendum entered and electronically signed by Miracle Cooley MD 03/09/25 15:21:
updated brother on the phone
Original Note:
Today's Communication/Plan
-
see AP
Assessment / Plan
Assessment / Plan
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 However, Bora
who speaks to patient every day states pt came on his own. Per Bora, patient was stating he was unable to find his Xanax prior to coming in.
CT head 02/25/25: No acute intracranial abnormality
MRI 02/27/25: No acute intracranial abnormality noted. Chronic senescent changes.
A/P:
# Acute Anxiety with confusion
Initially suspect secondary not being able to find Xanax prescription. Dr Penn received information from patient's friend, Bora Pereyra (phone # [phone]) who reports that patient has had increasing memory loss. They speak every day but Bora lives
in the [facility].
Admission MRI brain obtained without acute abnormality
Patient is not an SSRI candidate 2/2 hyponatremia
Restarted benzo (BODY MAKE UP ARTIST Ativan 1 mg TID), with plan to taper off before discharge as it is felt unsafe for this patient with memory issue to go home (he lives alone) with benzo
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
# AMS on 03/07 with seizure confirmed on EEG
On 03/01: seizure activity aborted with IV valium 5mg (s/p 2 doses)
On 03/07: seizure again and stat EEG noted left frontocentral region nonconvulsive status epilepticus
Started Keppra, cont 1000 mg BID
Started Vimpat, cont 200 mg BID
Added Topamax at 200 mg BID
Continuous EEG Noted status epilepticus and pt was transferred to the ICU
Started ketamine drip, now weaning down
Pending LP ordered by Neuro
Pending MRI brain with and without contrast
ID CS for concern of encephalitis
Of note, cont current low dose benzo (now IV Valium 1.25 mg BID with NPO) with plan to eventually taper off before discharge.
IVF while NPO
# Memory Loss, possible dementia
patient lives alone.
patient does not have family that lives close by (brother lives in [place] and they are not close).
No driving going forward. He drove himself to the hospital.
Appreciate Psych input
Appreciate neuro input
# Paroxysmal A-fib
Went into A fib
Cont Amiodarone
Added Toprol
started Eliquis 5 mg BID , hold prior to LP
Echo largely unrevealing: EF 50% Compared to a prior study from 04/11/23 The LVEF has decreased from 60% to 50%. The mitral regurgitation is also worsened somewhat and is now in the mild to moderate range.
Card on board
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
urine studies showed SIADH
s/p Samsca PRN per renal
Sodium level stable, today at 139
Nephrology consult appreciated
cont fluid restriction and salt tab BID when restarting diet
# History of reported TIA
# HTN
resumed BODY MAKE UP ARTIST lisinopril 20 mg daily
Monitor BP
# COPD no acute exacerbation
# Former smoker
Symbicort
# Asthma no acute exacerbation
# BPH
Flomax
# Severe constipation
cont bowel regimen Miralax and Senokot-S BID ATC
DVT prophylaxis: Lovenox SQ while Eliquis held
Full code
Dispo: pt declined memory care unit, wants to go home. Have requested CM to reach out to [employer] to look into pt's social situation.
DW RN
DW Neuro extensively
Attempt to update brother, calls not answered
CC time 45 min
Anticipated Discharge: > 48 hours
Subjective/Interval History
-
Date of Service: March 09, 2025
Objective Data
-
Labs:
Laboratory Results
03/09/25
03:23
WBC 8.6
Hgb 12.0 L
Hct 35.7 L
Plt Count 252
Sodium 139
Potassium 4.2
Chloride 112 H
Carbon Dioxide 21 L
BUN 17
Creatinine 0.9
Glucose 118 H
Calcium 9.0
Vital Signs:
Vital Signs
Temp Pulse Resp BP Pulse Ox
36.2 C 82 16 121/70 99
03/09/25 03:14 03/09/25 07:28 03/09/25 07:28 03/09/25 07:00 03/09/25 07:28
I&O
03/08/25 03/09/25 03/10/25
06:59 06:59 06:59
Intake Total 1253.2 / 1358.7 105.5 / 105.5
Output Total 1150 / 1150 950 / 950
Balance -1150 / -1150 303.2 / 408.7 105.5 / 105.5
Review of Systems
-
Unable to obtain full review of systems at this time due to: Acuity
Physical Exam
-
General: Well Developed, Well Nourished, No Apparent Distress and Comfortable
HEENT: Normocephalic and Atraumatic
Respiratory: Clear to Auscultation and Non Labored Respirations; Negative Wheezes or Accessory Resp Muscle Use
Cardiac: Regular Rhythm and S1/S2
GI: Soft, Nontender, Nondistended and Normal Bowel Sounds
Skin: Warm and Dry; Negative Rash
Psych: Calm and Confused
Data Reviewed
-
CT Scan: Report Reviewed by me
MRI: Report Reviewed by me
Labs: Labs Reviewed by me
--- NOTE | 2025-03-09 07:46 | W.PN.CARDCBS ---
Today's Communication / Plan
-
Remains critically ill with status epilepticus. Continue IV ketamine and Vimpat/Keppra, Topamax
A-fib remains rate controlled. With status epilepticus will hold Eliquis. Await MRI of the brain
Decrease amiodarone to 100 mg p.o. twice daily. Continue Toprol
Sodium is improved and now at 139 status post Samsca.
Weight is overall down. Hold Lasix
Impression / Plan
-
PCP Dr. Kathrin Underwood
Cardiology: Dr. Damian Grant, last seen 01/09/2024
Impression:
Admitted with confusion and hyponatremia 02/25/2025
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
Hyponatremia
Recurrence of A-fib with RVR 03/05/2025
Paroxysmal A-fib
Previously not chronically anticoagulated by patient choice
h/o TIA
Hyperlipidemia
h/o Alcohol abuse
Anxiety
Aortic atherosclerosis
Echo 04/11/2023: EF 55 to 60%, stage II diastolic dysfunction, mild MR, mild peak/mean 24/13 mmHg, mild aortic regurgitation
Echo 03/06/25: EF 50%, mild to moderate MR, mild AI, PA pressure 20
Plan:
- Now in status epilepticus. On IV ketamine and Topamax. Also getting IV Vimpat/Keppra
- A-fib is rate controlled this morning. Would continue amiodarone and metoprolol. Will decrease amiodarone to 200 mg p.o. twice daily.
- [id number] score is high but with continuous seizures will hold Eliquis for today and continue to follow his clinical status.
-For MRI Brain today
- Continue atorvastatin.
-Weight is overall down. Would hold Lasix
- Sodium is significantly improved to 139 status post Samsca
- I agree that hyponatremia is likely not the etiology for his seizures and mental status issues.
- Echo was reviewed which has a preserved ejection fraction and mild to moderate valvular disease. If he recovers from this would consider stress testing as outpatient.
CC time 32 min
HPI 03/06/2025:
Patient was initially admitted on 02/25/2025 with confusion and cardiology is now consulted on 03/06/2025 for recurrence of A-fib first seen on 03/05/2025. Patient was initially admitted on 02/25/2025 with confusion and hyponatremia. Patient has a
history of hyponatremia. At time of admission it was unclear if there was an underlying diagnosis of dementia, a close friend reported there had been increasing changes in forgetfulness and memory lapses, but with the patient's brother who he is
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 Regardless patient had MRI of the brain 02/25/2025 that showed no acute changes and patient was slated for discharge to home, but
then had a rapid response on 03/01/2025 for seizure x 3 that was attributed to benzodiazepine withdrawal. Patient was transferred to E yesterday and later in the day was noted to have a change on telemetry and he was back in A-fib.
Progress Note - Flight Reservations Manager
Subjective
Date of Service: March 09, 2025
In status epilepticus and doing poorly. Getting continuous EEG. Now on ketamine drip. He does respond somewhat to commands. He denies overt pain.
Objective
Labs:
03/09/25 03:23
03/09/25 03:23
Labs
Hgb 12.0 g/dL (13.0-18.0) L 03/09/25 03:23
Hct 35.7 % (39.0-52.0) L 03/09/25 03:23
Plt Count 252 10^3/uL (130-400) 03/09/25 03:23
PT 16.4 Sec (11.4-14.6) H 03/08/25 05:27
INR 1.29 03/08/25 05:27
APTT 24.0 Sec (23.4-35.0) 03/01/25 15:29
Sodium 139 mmol/L (135-145) 03/09/25 03:23
Potassium 4.2 mmol/L (3.5-5.1) 03/09/25 03:23
BUN 17 mg/dl (9-20) 03/09/25 03:23
Creatinine 0.9 mg/dL (0.7-1.3) 03/09/25 03:23
Glucose 118 mg/dl (70-99) H 03/09/25 03:23
Vital Signs and I&O:
Vital Signs
Temp Pulse Resp BP Pulse Ox
97.2 F 82 16 121/70 99
03/09/25 03:14 03/09/25 07:28 03/09/25 07:28 03/09/25 07:00 03/09/25 07:28
Vital Signs
Temp Pulse Resp BP Pulse Ox
97.2 F 82 16 121/70 99
03/09/25 03:14 03/09/25 07:28 03/09/25 07:28 03/09/25 07:00 03/09/25 07:28
Intake & Output
03/07/25 03/08/25 03/09/25 03/10/25
06:59 06:59 06:59 06:59
Intake Total 1080 / 1080 1253.2 / 1358.7 105.5 / 105.5
Output Total 850 / 850 1150 / 1150 950 / 950
Balance 230 / 230 -1150 / -1150 303.2 / 408.7 105.5 / 105.5
Physical Exam
Physical Exam
GEN: awake, following some simple command
HEENT: supple, anicteric, mmm
LUNGS: CTA, no wheezes/rales
CV: irreg, S1/S2, 1/6 syst LSB, no gallop
ABD: soft, BS+, NT/ND
EXT: No edema
NEURO: no overt power deficits
SKIN: No rash
[2025-03-09] MEDS: VALIUM INJECTION 1.25 MG IV ×2 (07:59→19:52)
[2025-03-09] MEDS: VIMPAT 200 MG IV ×2 (07:59→19:58)
[2025-03-09] MEDS: KEPPRA 1000 MG IV ×2 (07:59→19:58)
[2025-03-09] MEDS: FLOMAX 0.4 MG PO (07:59)
[2025-03-09] MEDS: PACERONE 200 MG PO ×2 (08:00→19:54)
[2025-03-09] MEDS: TOPAMAX 200 MG PO ×2 (08:00→19:54)
[2025-03-09] MEDS: TOPROL XL 25 MG PO (08:00)
[2025-03-09] MEDS: SODIUM CHLORIDE 1 GRAM PO ×2 (08:00→19:55)
[2025-03-09] MEDS: LIPITOR 40 MG PO (08:00)
--- NOTE | 2025-03-09 09:00 | PTCARENOTE ---
Rec'd care of patient at 0700. Patient lethargic. Arousable to verbal and tactile stimuli. Pupils equal and reactive, +2mm. Nystagmus noted for brief period and episodes of staring off; neurologist aware. Continous eeg monitoring already in place.
Oriented only to self. Speech garbled. Confused. Repeatedly stating 'I am José Antonio' in response to all questions. MAEx4; normal strength. Intermittently following commands appropriately. Afib on tele monitor. Rate controlled. Pulse ox 97-100% on RA.
Lung sounds shallow, diminished throughout. Hypo BS. Due to mental status, NPO except medications crushed in applesauce as appropriate. Condom catheter on for urinary incontinence. Ketamine and IVFs infusing through peripheral INTs. See worklist for
full assessment and care.
--- NOTE | 2025-03-09 09:33 | W.PN.NEURO.1 ---
Addendum entered and electronically signed by Zack Ortiz MD 03/09/25 10:58:
patient had brief seizures lasting a few minutes at 9:04, 9:27, 9:37, 10:11 am. Ketamine increased to 1.0 mg/kg/hr
Original Note:
Today's Communication / Plan
-
he comes off EEG for MRI then he needs to go back on EEG
maintain Vimpat, Keppra, valproate, Topiramate,
Neuro Assessment/Plan
Assessment
Abrupt onset of worsening confusion
New episode of seizure described as generalized tonic-clonic lasting for approximately 2 minutes before total resolution on 03/07/2025
Exam very fluctuating based on whether or not he is actively seizing.
compared to yesterday his condition is worsening, in that today the EEG seizure activity is now spreading to his right hemisphere, this afternoon now in nonconvulsive status epilepticus and he is requiring more meds to get the seizures controlled
my concern for encephalitis viral >> autoimmune. I don't believe we have solved this case yet
will repeat MRI brain w/ and w/o contrast given worsening condition, and he can come off EEG as it's now pretty clear clinically when he is and is not seizing
will need to repeat LP try to get more CSF at least for cells/chem/PCR after hydration. with his SIADH, being fluid restricted, spoke with nephro ok to rehydrate for LP
AEDs Keppra 1000 BID, Vimpat 200 BID, topiramate 200 BID, Depakote 750 q8 at 7a, 3p, 11p, trough 92.8 on 03/09 recheck in AM
Ketamine gtt@0.7 mg/kg/hr subanesthetic
03/08 while he was lucid AAOx3 I explained to him my suspicions.
35' crit reviewing history, examining patient, independently reviewing imaging, managing nonconvulsive status epilepticus, discussing with other providers in patient who is worsening, excluding eeg reading time billed separately
Plan
continuous EEG monitoring
Obtain new MRI of brain with and without contrast
Check lumbar puncture
continue AEDs as above
Will follow
Subjective/Objective
Subjective Data
Date of Service: March 09, 2025
~1:55 am spoke with Samantha Marie HAND II TUBE BENDER, patient conversant, concern for over sedation from from Ketamine,
EEG reviewed: from 10:30-10:40 pm, the seizures improved, and after 10:40 pm no more seizures. EEG looks great. with clinical concern for overtreatment, ketamine was lightened to 0.7
on AM EEG review, patient had a few bursts of rhythmic delta lasting <5 seconds which may have been seizures. 7:45-7:50 am patient had an EEG seizure. Spoke to nurse, at beginning of shift patient conversant, confused. at the time of the seizure,
patient unresponsive, nystagmus witnessed. nurse was preparing to give AM meds, and after they were given his mentation improved.
Objective Data
Vital Signs
Temp Pulse Resp BP Pulse Ox
36.4 C 81 23 100/74 97
03/09/25 08:31 03/09/25 09:00 03/09/25 09:00 03/09/25 09:00 03/09/25 08:27
Lab Results
03/09/25 03:23
03/09/25 03:23
PT 16.4 Sec (11.4-14.6) H 03/08/25 05:27
INR 1.29 03/08/25 05:27
APTT 24.0 Sec (23.4-35.0) 03/01/25 15:29
Sodium 139 mmol/L (135-145) 03/09/25 03:23
Potassium 4.2 mmol/L (3.5-5.1) 03/09/25 03:23
BUN 17 mg/dl (9-20) 03/09/25 03:23
Glucose 118 mg/dl (70-99) H 03/09/25 03:23
Calcium 9.0 mg/dl (8.4-10.2) 03/09/25 03:23
Phosphorus 4.0 mg/dl (2.5-4.5) 03/03/25 05:56
LDL Cholesterol, Calc 62 mg/dl 02/26/25 07:11
Vitamin B12 690 pg/ml (239-931) 02/26/25 07:11
Ur Buprenorphine Cancelled 02/25/25 20:30
Patient Allergies
No Known Allergies Allergy (Verified 02/25/25 15:16)
Physical Exam
-
Awake, alert, confused, disoriented, attends bilaterally, intermittently following simple commands
moving all ext antigravity
--- NOTE | 2025-03-09 10:17 | CON.ID ---
Consultation
-
Date/Time Consultation Requested: March 08, 2025 181
Date/Time Consultation Performed: March 09, 2025 1015
Requesting Provider: Dr. Zora Cooley
Performing Provider: Dr. Monserrat Ramesh
Reason for Consultation: Worsening seizure, for LP Monday
Chief Complaint / Past History
Chief Complaint
Change in mental status
History of Present Illness
History obtained from review of medical records since patient unable to provide a meaningful history due to status epilepticus.. 84-year-old male with history of atrial fibrillation, COPD, hypertension who presented to the ER February 25 due to acute
confusion and reportedly expressed depression. In ED patient noted to be acute on chronic hyponatremic. Urine analysis negative. Head CT no acute change. MRI of the brain no acute change. Patient's mental status improved. Discharge was
planned on March 01 which was canceled noted to have seizure x3 confirmed by EEG. Seizure initially thought to be from benzodiazepine withdrawal, patient also in A-fib. Post-seizure mental status improved. 03/07 pt with recurrence of seizure. EEG
showed left frontocentral nonconvulsive status. 03/07 IR attempted LP but only few drops of CSF obtained - sent for cx, neg to date. Pt continues to be in status, more generalized. Pt getting re-hydrated for repeat LP tomorrow. No reports of REED's.
Per neuro, pt was lucid in between seizures.
Past History
Additional Past Medical History:
Chronic memory loss
COPD/asthma
Hypertension
TIA
Atrial fibrillation
Chronic hyponatremia
Arthritis
Anxiety/depression
BPH
Bilateral total knee replacements
Hernia repair
Left tympanoplasty
Sinus polypectomy
Allergy History:
No Known Allergies Allergy (Verified 02/25/25 15:16)
Medications Reviewed: Yes
Current Antibiotics:
None
Social History
Tobacco: Former Smoker
Alcohol: Former
Drug: Marijuana
Personal: Single
Family History
Family History: Not Pertinent
Review of Systems
Review of Systems
Unable to obtain due to change in mental status
Vital Signs
Temp Pulse Resp BP Pulse Ox
97.5 F 81 23 100/74 97
03/09/25 08:31 03/09/25 09:00 03/09/25 09:00 03/09/25 09:00 03/09/25 08:27
Physical Exam
Physical Exam
Constitutional: Acutely Ill
Eyes: No Conjunctival Hemorrhage and Sclera Anicteric
Cardiovascular: Irregular Rate and S1/S2
Pulmonary: Clear
Gastrointestinal: Soft, Non Tender, Non Distended and Normal Bowel Sounds
Genito-Urinary: Negative CVA Tenderness
Extremities: Negative Edema
Musculoskeletal: Negative Spinal Tenderness
Neurological: Other (unresponsive)
Lab / Diagnostic Study Results
03/09/25 03:23
03/09/25 03:23
Abs Immat Gran (auto) 0.1 10^3/uL (0-0.05) H 03/07/25 14:13
Absolute Neuts (auto) 6.2 10^3/uL (1.4-6.5) 03/07/25 14:13
Absolute Lymphs (auto) 0.7 10^3/uL (1.2-3.4) L 03/07/25 14:13
Absolute Monos (auto) 0.5 10^3/uL (0.1-0.6) 03/07/25 14:13
Absolute Basos (auto) 0.0 10^3/uL (0-0.2) 03/07/25 14:13
Immature Gran % 1.1 % (0-0.5) H 03/07/25 14:13
Neutrophils % 82.1 % (42.2-75.2) H 03/07/25 14:13
Lymphocytes % 8.6 % (20.5-51.1) L 03/07/25 14:13
Monocytes % 7.0 % (1.7-9.3) 03/07/25 14:13
Eosinophils % 0.9 % (0-6) 03/07/25 14:13
Basophils % 0.3 % (0-2) 03/07/25 14:13
PT 16.4 Sec (11.4-14.6) H 03/08/25 05:27
INR 1.29 03/08/25 05:27
Microbiology Results
Micro:
03/07/25 14:08 CSF Culture - Preliminary
Csf No Growth After 18-24 Hours
Gram Stain - Final
03/08/25 AXR: Large amount of fecal material in the sigmoid colon and rectum (possibly fecal impaction in the rectum).
02/27/25 Brain MRI wo: No acute intracranial abnormality noted. Chronic senescent changes.
Assessment / Plan
# Status epilepticus
# Encephalopathy
- Afebrile/normal wbc.
- 03/07 IR attempted LP, only few drops of CSF, enough for cx -> neg to date
- For brain MRI today.
- For repeat LP. If minimal fluid obtain, recommend send for meningoencephalitis PCR panel first.
- In the meantime, ordered serum West Nile Virus IgM, arbovirus serology panel, cryptococcus antigen, syphilis.
# Conditions present on admission
Chronic memory loss
COPD/asthma
Hypertension
TIA
Atrial fibrillation
Chronic hyponatremia
Arthritis
Anxiety/depression
BPH
Bilateral total knee replacements
Hernia repair
Left tympanoplasty
Sinus polypectomy
Care Review
Plan reviewed with: Physician (Dr. Ortiz)
--- NOTE | 2025-03-09 10:52 | PTCARENOTE ---
Per neurologist, Ketamine drip increased to 1mg/kg/hr. MRI of brain ordered for today.
--- NOTE | 2025-03-09 11:57 | PTCARENOTE ---
Systems reviewed. Patient more lethargic with increased dose of ketamine. Afib on tele; rate in the 50-60's. BP 90/60's. 99% on RA. No other changes from prior assessment. Continuos eeg monitoring maintained. ABG ordered. CHG bath provided and
repositioned for comfort.
[2025-03-09 12:15] LABS: B.E. -4.6 mmol/L; HCO3 18.8 mmol/L (21-28); O2 Saturation % 99.8 % (94-98); PCO2 29 mmHg (35-48); PO2 110 mmHg (83-108)
[2025-03-09] MEDS: KETAMINE HCL 100 MG IV (12:37)
--- NOTE | 2025-03-09 14:05 | PTCARENOTE ---
MRI of the brain completed. Towards the end of the scan, patient agitated and thrashing. Last portion of scan unable to be safely completed. Patient back in icu. VSS. During transfer back to unit, patient returned to lethargic. machine set up technician
contacted to place patient back on continuous eeg monitoring. Ketamine and IVFs infusing.
--- NOTE | 2025-03-09 16:07 | W.PN.NEPH.PH ---
Today's Communication / Plan
-
No changes a.m. labs
Assessment/Plan
-
Impression:
Acute on chronic euvolemic hyponatremia (126)
Change of mental status
History of depression and anxiety
History of atrial fibrillation
History of hypertension
History of COPD
BPH
Seizure 03/01/25
Plan:
Hyponatremia:
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
- Maintain fluid restriction and salt tablets bid
- s/p 7.5 mg of Samsca on 02/28,
Sodium has normalized with Samsca 30 mg 03/07
Mental status still altered status post LP but sample size may not be adequate
Sodium remains normal
MRI of the brain pending read today
Repeat LP tomorrow
-
-
Date of Service: March 09, 2025
CC / HPI / ROS
-
Chief Complaint:
Hyponatremia
History of Present Illness:
Blood pressure controlled on lisinopril
Serum sodium down to 128
Seizure on 03/01
metabolic acidosis stable
Review of Systems:
Nonoliguric
No chest pain or shortness of breath
no fevers
Continues to have altered mental status
Labs
-
Labs:
WBC 8.6 10^3/uL (4.8-10.8) 03/09/25 03:23
RBC 3.93 10^6/uL (4.70-6.10) L 03/09/25 03:23
Hgb 12.0 g/dL (13.0-18.0) L 03/09/25 03:23
Hct 35.7 % (39.0-52.0) L 03/09/25 03:23
Plt Count 252 10^3/uL (130-400) 03/09/25 03:23
Sodium 139 mmol/L (135-145) 03/09/25 03:23
Potassium 4.2 mmol/L (3.5-5.1) 03/09/25 03:23
Chloride 112 mmol/L (98-107) H 03/09/25 03:23
Carbon Dioxide 21 mmol/L (22-30) L 03/09/25 03:23
BUN 17 mg/dl (9-20) 03/09/25 03:23
Creatinine 0.9 mg/dL (0.7-1.3) 03/09/25 03:23
eGFR > 60.00 03/09/25 03:23
Glucose 118 mg/dl (70-99) H 03/09/25 03:23
Calcium 9.0 mg/dl (8.4-10.2) 03/09/25 03:23
Phosphorus 4.0 mg/dl (2.5-4.5) 03/03/25 05:56
Albumin 3.7 g/dl (3.5-5.0) 03/07/25 14:13
Physical Exam
-
Vital Signs:
Vital Signs
Temp Pulse Resp BP Pulse Ox
97.6 F 70 20 136/86 100
03/09/25 11:27 03/09/25 15:00 03/09/25 15:00 03/09/25 15:00 03/09/25 15:00
Cardiovascular:: Regular rate and rhythm
Respiratory:: Bilateral: Coarse
Abdomen:: Nontender and Soft
Bowel Sounds:: Normal
Extremity Edema:: None: Bilateral:
Oneill Catheter: No
--- NOTE | 2025-03-09 16:21 | PTCARENOTE ---
Systems reviewed. Patient remains lethargic with intermittent periods of agitation/restlessness. Continuous eeg monitoring back on. VSS. Afib on tele. Pulse ox 96% on RA. Incontinent of a smear of bm. Urine output minimal throughout the day. Patient
encouraged to try and void. Patient unable. Bladder scanned for 896 cc's. Repair Welder notified. 16Fr indwelling urinary catheter placed. Complete bed bath provided. Patient resting comfortably.
--- NOTE | 2025-03-09 16:25 | EEGC.RPT ---
Continuous EEG Report
Recording
Start Date of Data Reviewed: 03/08/25
Start Time of Data Reviewed: 14:09
End Date of Data Reviewed: 03/09/25
End Time of Data Reviewed: 12:28
Type of EEG: Continuous
Done with Video Recording: Yes
Study Sequence: Continuation of ongoing Study
Electrocardiogram: Irregularly Irregular
Report
Clinical Background:�84 year old man with seizures
Introduction: continuation of ICU EEG was done using [employer] 10-20 electrode placement protocol.
Meds: include Keppra, Vimpat, valproate, Topamax, Ketamine
Background: In the most alert state, the PDR is 9-10 Hz in frequency with normal amplitude. There is spontaneous variability and reactivity.�
Sleep: some spindles are seen
Focal/epileptiform: Lateralized periodic discharges (LPD) are seen left frontocentral max negativity at F3, ~1/second
Seizure: the seizure consists of rhythmic delta activity 3-4 Hz, which may be focal left hemispheric, or generalized.
Narrative: at the beginning of the study, ~2:09 pm the patient is in nonconvulsive status epilepticus, generalized rhythmic delta, clinically he is aphasic. ~3:15 pm he is loaded with valproate, and by 3:30 the seizures stopped and clinically he was
AAOx3. 5:30 pm he is back in status epilepticus, and loaded with Topamax and transferred to ICU to start Ketamine drip. at 9:07, the EEG is disconnected for transfer, and restarted 10:05 pm. from 10:30-10:40 pm, the seizures improved, and after
10:40 pm no more status epilepticus. Overnight there are a few bursts of rhythmic delta lasting <5 seconds which may have been seizures. 7:45-7:50 am patient had an EEG seizure. Nurse reported at at the time, patient unresponsive, nystagmus
witnessed. nurse was preparing to give AM meds, and after they were given his mentation improved from mute to babbling nonsense. He then had focal left hemispheric seizures with rhythmic delta lasting a few minutes at 9:04, 9:27, 9:37, 10:11 am.
Ketamine increased to 1.0 mg/kg/hr after which the seizures resolved. there were a few bursts of left hemispheric rhythmic delta lasting <5 seconds. 12:28 pm the EEG is disconnected for patient to go to MRI
Impression: highly epileptogenic zone in left frontocenral region, and EEG seizures with generalized nonconvulsive staus epilepticus, which since the previous day have worsened and requiring increasing medications to control.
[2025-03-09] MEDS: LOVENOX 40 MG SC (17:10)
[2025-03-09] MEDS: DUONEB 3 ML INH (19:27)
[2025-03-09] MEDS: PULMICORT 0.5 MG INH (19:27)
--- NOTE | 2025-03-09 20:00 | PTCARENOTE ---
Rec'd pt on cont EEG monitoring, seizure prec maintianied, MARIANN at 2mm, rambling speech, garbled speech, oriented to person, occas follows commands,no seizure activity noted, ketamine gttat 1mg/ kg/hr per order;MADDOX, afib, + pulses, skin warm/dry,
RA, lungs decr, sat98, hypo bowel sounds, no bm, abd soft, no vomiting, guerra draining yellow urine
[2025-03-09] MEDS: NSS IV (20:49)
--- NOTE | 2025-03-09 22:12 | PTCARENOTE ---
pt pulled off all EEG leads- Samira Marie NP aware, will cont to monitor for seizures
[2025-03-09] MEDS: MELATONIN PO (22:47)
--- NOTE | 2025-03-09 23:58 | PTCARENOTE ---
sys reviewed, changes noted
[2025-03-10] VITALS (25 sets, daily range): BP systolic 92–157; BP diastolic 56–105; BMI 24.7
[2025-03-10] MEDS: KETAMINE HCL 100 MG IV ×2 (00:08→13:07)
--- NOTE | 2025-03-10 02:17 | PTCARENOTE ---
CHG bath done, linens changed
[2025-03-10 03:33] LABS: Hematocrit 34.0 % (39.0-52.0); Hemoglobin 11.4 g/dL (13.0-18.0); Mean Corp Hgb Conc. 33.5 g/dL (33.0-37.0); Mean Corpuscular Volume 91.4 fL (80.0-94.0); Platelet Count 231 10^3/uL (130-400); Red Cell Dist. Width 13.8 % (11.5-14.5)
--- NOTE | 2025-03-10 03:44 | PTCARENOTE ---
sys reviewed, changes noted, neuro unch
[2025-03-10 03:48] LABS: Depakane 93.7 ug/ml (50.0-120.0)
[2025-03-10 04:01] LABS: Blood Urea Nitrogen 15 mg/dl (9-20); Calcium 9.1 mg/dl (8.4-10.2); Carbon Dioxide 19 mmol/L (22-30); Chloride 116 mmol/L (98-107); Estimated Creatinine Clearance 71 ml/min; Glucose 88 mg/dl (70-99); Magnesium 2.2 mg/dl (1.6-2.3); Potassium 3.8 mmol/L (3.5-5.1); Sodium 140 mmol/L (135-145); eGFR > 60.00
[2025-03-10] MEDS: NSS 1000 IV ×2 (05:43→14:48)
[2025-03-10] MEDS: DEPACON 57.5 MG IV ×3 (05:44→22:19)
[2025-03-10] MEDS: DUONEB 3 ML INH ×2 (07:20→19:58)
[2025-03-10] MEDS: PULMICORT 0.5 MG INH ×2 (07:20→19:58)
[2025-03-10] MEDS: TOPAMAX PO (07:27)
[2025-03-10] MEDS: FLOMAX PO (07:27)
[2025-03-10] MEDS: PACERONE PO (07:27)
[2025-03-10] MEDS: LIPITOR PO (07:27)
[2025-03-10] MEDS: SODIUM CHLORIDE PO (07:27)
[2025-03-10] MEDS: TOPROL XL PO (07:28)
--- NOTE | 2025-03-10 07:30 | PTCARENOTE ---
Received pt @ change of shift. Pt unresponsive/lethargic; opens eye spont after mx tactile stim; gaze deviated upward; does not track or follow commands. MADDOX but not to command. Pupils 3mm/ brisk b/l. Pt. pulled EEG monitoring off during night;
plumbing service technician to bedside this AM to replace back on cont EEG. Also in contact w neuro, Dr. Ortiz, regarding AM med pass d/t mentation; unable to give PO meds and pt. requires eval prior to further sedative IV meds admin. IV Valium d/c'd per neuro. Admin
antiepileptics- see SEP. SpO2 100% on RA; auscultated dim breath sounds. Hypoactive BS, abd soft/round. NPO status d/t mentation. Therm guerra in place draining adequate amt clear, yellow urine. R arm PIV x3- Ketamine gtt infusing @ 1mg/kg/hr-
see flow sheet and NSS @ 100mL/hr. AM hygiene provided and pt. repositioned per protocol. Safe environment maintained.
[2025-03-10] MEDS: VALIUM INJECTION IV (07:41)
[2025-03-10] MEDS: KEPPRA 1000 MG IV ×2 (07:46→19:27)
[2025-03-10] MEDS: VIMPAT 200 MG IV ×2 (07:46→19:27)
--- NOTE | 2025-03-10 08:38 | W.PN.CARDCBS ---
Today's Communication / Plan
-
Restart Eliquis following LP
Continue amiodarone
Nutrition per pulmonary/critical care
Impression / Plan
-
PCP Dr. Kathrin Underwood
Cardiology: Dr. Damian Grant, last seen 01/09/2024
Impression:
Admitted with confusion and hyponatremia 02/25/2025
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
Hyponatremia
Recurrence of A-fib with RVR 03/05/2025
Paroxysmal A-fib
Previously not chronically anticoagulated by patient choice
h/o TIA
Hyperlipidemia
h/o Alcohol abuse
Anxiety
Aortic atherosclerosis
Echo 04/11/2023: EF 55 to 60%, stage II diastolic dysfunction, mild MR, mild peak/mean 24/13 mmHg, mild aortic regurgitation
Echo 03/06/25: EF 50%, mild to moderate MR, mild AI, PA pressure 20
Plan:
He appears very comfortable and very sedated on IV Keppra, Vimpat, ketamine, Topamax. However, he seems much frailer than I recall from last office visit, having known him for 15 years.
Neurology to determine whether or not neuroleptic regimen should be tapered
Hyponatremia seems improved following tolvaptan. Currently patient is on furosemide every 48 hours, probably not required for volume status but defer to nephrology regarding management of serum sodium
Patient possibly to undergo repeat attempt at lumbar puncture. Thereafter, would resume Eliquis.
Continue amiodarone, patient currently in atrial fibrillation ventricular response is relatively slow but acceptable, may need to stop metoprolol
Volume status seems appropriate no evidence of heart failure.
Discussed with critical care and nursing
CC time 35 minutes
HPI 03/06/2025:
Patient was initially admitted on 02/25/2025 with confusion and cardiology is now consulted on 03/06/2025 for recurrence of A-fib first seen on 03/05/2025. Patient was initially admitted on 02/25/2025 with confusion and hyponatremia. Patient has a
history of hyponatremia. At time of admission it was unclear if there was an underlying diagnosis of dementia, a close friend reported there had been increasing changes in forgetfulness and memory lapses, but with the patient's brother who he is
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 Regardless patient had MRI of the brain 02/25/2025 that showed no acute changes and patient was slated for discharge to home, but
then had a rapid response on 03/01/2025 for seizure x 3 that was attributed to benzodiazepine withdrawal. Patient was transferred to E yesterday and later in the day was noted to have a change on telemetry and he was back in A-fib.
Progress Note - Barrel Loader
Subjective
Date of Service: March 10, 2025:
84-year-old male with history of paroxysmal A-fib on amiodarone and known hyponatremia related to SIADH who was admitted with confusion. In hospital he had seizures initially attributed to benzodiazepine withdrawal. Subsequently developed status
epilepticus. Historically has declined anticoagulation despite history of TIA.
PMH: Paroxysmal A-fib, history of alcohol abuse, though not recent by report, remote TIA, anxiety, hypercholesterolemia
Current meds: IV ketamine, atorvastatin 40 mg a day, tamsulosin 0.4 mg daily, furosemide 20 mg every 48 hours, apixaban 5 mg twice daily, currently on hold, Toprol ER 25 mg a day, Keppra 1000 mg IV every 12, Vimpat 200 IV every 12, Valium 1.25 IV
every 12, enoxaparin 40 mg subcu daily, Topamax 200 twice daily, amiodarone 200 mg twice daily, Pulmicort, and valproic acid
Intake and output +1.1 L, 115/63, pulse 62, respiratory 14, weight is 75.7 kg, if accurate down 2.9 kg since admission and 5.1 kg since admission, 11.6 kg since September, very sedated, some temporal wasting, head neck exam unremarkable, lungs are
clear, soft systolic murmur, irregular rate and rhythm, no edema
Chest x-ray cardiomegaly rotated
MRI brain 03/09, severe white matter leukoaraiosis, moderate diffuse cerebral and cerebellar loss
Hemoglobin 11.4, platelets are 231, pCO2 is 29, pH is 7.42, bicarb is 19, sodium is 140, BUN/creatinine are 15 and 0.8, serologies are pending, possibly for repeat LP
Objective
Labs:
03/10/25 03:17
03/10/25 03:17
Labs
Hgb 11.4 g/dL (13.0-18.0) L 03/10/25 03:17
Hct 34.0 % (39.0-52.0) L 03/10/25 03:17
Plt Count 231 10^3/uL (130-400) 03/10/25 03:17
PT 16.4 Sec (11.4-14.6) H 03/08/25 05:27
INR 1.29 03/08/25 05:27
APTT 24.0 Sec (23.4-35.0) 03/01/25 15:29
Sodium 140 mmol/L (135-145) 03/10/25 03:17
Potassium 3.8 mmol/L (3.5-5.1) 03/10/25 03:17
BUN 15 mg/dl (9-20) 03/10/25 03:17
Creatinine 0.8 mg/dL (0.7-1.3) 03/10/25 03:17
Glucose 88 mg/dl (70-99) 03/10/25 03:17
Vital Signs and I&O:
Vital Signs
Temp Pulse Resp BP Pulse Ox
36.6 C 62 14 115/63 97
03/10/25 03:43 03/10/25 07:23 03/10/25 07:23 03/10/25 05:00 03/10/25 07:23
Vital Signs
Temp Pulse Resp BP Pulse Ox
36.6 C 62 14 115/63 97
03/10/25 03:43 03/10/25 07:23 03/10/25 07:23 03/10/25 05:00 03/10/25 07:23
Intake & Output
03/08/25 03/09/25 03/10/25 03/11/25
07:59 07:59 07:59 07:59
Intake Total 1358.7 / 1421.7 2487.5 / 2487.5
Output Total 1150 / 1150 950 / 950 1335 / 1335
Balance -1150 / -1150 408.7 / 471.7 1152.5 / 1152.5
Physical Exam
Physical Exam
See above
--- NOTE | 2025-03-10 09:26 | W.PN.NEURO.1 ---
Today's Communication / Plan
-
continuous EEG
await LP
would restart Eliquis after LP
AEDs Keppra 1000 BID, Vimpat 200 BID, Depakote 750 q8 at 7a, 3p, 11p, trough 92.8 on 03/09 recheck in AM
can't take topiramate 200 BID, no PO access
Ketamine gtt@1.0 mg/kg/hr subanesthetic
Neuro Assessment/Plan
Assessment
Abrupt onset of worsening confusion
New episode of seizure described as generalized tonic-clonic lasting for approximately 2 minutes before total resolution on 03/07/2025
Exam very fluctuating based on whether or not he is actively seizing.
03/08 his condition worsening, in that today the EEG seizure activity is now spreading to his right hemisphere, this afternoon now in nonconvulsive status epilepticus and he is requiring more meds to get the seizures controlled
my concern for encephalitis viral >> autoimmune. I don't believe we have solved this case yet
03/08 while he was lucid AAOx3 I explained to him my suspicions.
repeat MRI brain 03/09 showing severe chronic senescent changes no explanation for his sz
will need to repeat LP try to get more CSF at least for cells/chem/PCR after hydration. with his SIADH, being fluid restricted, spoke with nephro ok to rehydrate for LP
AEDs Keppra 1000 BID, Vimpat 200 BID, topiramate 200 BID, Depakote 750 q8 at 7a, 3p, 11p, trough 92.8 on 03/09 and 93.7 on 03/12 so he is stable
Ketamine gtt@1.0 mg/kg/hr subanesthetic
35' crit reviewing history, examining patient, independently reviewing MRI imaging, managing nonconvulsive status epilepticus, discussing with other providers in patient who is worsening, excluding eeg reading time billed separately
Plan
continuous EEG monitoring
Obtain new MRI of brain with and without contrast
Check lumbar puncture
continue AEDs as above
Will follow
Subjective/Objective
Subjective Data
Date of Service: March 10, 2025
No further seizures on EEG yesterday evening. 8:45 pm he pulled the electrodes.
This morning he is obtunded, couldn't take PO Topamax
EEG hooked up again and initial ~30 mins no further seizures.
Objective Data
Vital Signs
Temp Pulse Resp BP Pulse Ox
36.6 C 62 14 115/63 97
03/10/25 03:43 03/10/25 07:23 03/10/25 07:23 03/10/25 05:00 03/10/25 07:23
Lab Results
03/10/25 03:17
03/10/25 03:17
PT 16.4 Sec (11.4-14.6) H 03/08/25 05:27
INR 1.29 03/08/25 05:27
APTT 24.0 Sec (23.4-35.0) 03/01/25 15:29
Sodium 140 mmol/L (135-145) 03/10/25 03:17
Potassium 3.8 mmol/L (3.5-5.1) 03/10/25 03:17
BUN 15 mg/dl (9-20) 03/10/25 03:17
Glucose 88 mg/dl (70-99) 03/10/25 03:17
Calcium 9.1 mg/dl (8.4-10.2) 03/10/25 03:17
Phosphorus 4.0 mg/dl (2.5-4.5) 03/03/25 05:56
LDL Cholesterol, Calc 62 mg/dl 02/26/25 07:11
Vitamin B12 690 pg/ml (239-931) 02/26/25 07:11
Ur Buprenorphine Cancelled 02/25/25 20:30
Patient Allergies
No Known Allergies Allergy (Verified 02/25/25 15:16)
Physical Exam
-
obtunded
--- NOTE | 2025-03-10 10:26 | PTOTSP ---
Chart reviewed. Discussed medical status with nursing. Pt remains on continuous EEG monitoring. Nursing reports pt is not medically stable for therapy at this time. OT will sign off at this time. Please reconsult when pt is stable for activity.
--- NOTE | 2025-03-10 10:28 | PTOTSP ---
Chart reviewed, discussed medical status with nursing. The patient is on continuous EEG and not appropriate for PT at this time. PT will sign off - please reconsult when appropriate to resume therapy services.
--- NOTE | 2025-03-10 10:53 | W.PN.NEPH.PH ---
Today's Communication / Plan
-
follow BMP
Assessment/Plan
-
Impression:
Acute on chronic euvolemic hyponatremia (126)
Change of mental status
History of depression and anxiety
History of atrial fibrillation
History of hypertension
History of COPD
BPH
Seizure 03/01/25
Plan:
follow BMP
Na remains stable normal as he has no significant intake currently
may need to consider light IVF if po intake remains poor
-
-
Date of Service: March 10, 2025
CC / HPI / ROS
-
Chief Complaint:
Hyponatremia
History of Present Illness:
Blood pressure controlled on lisinopril
Na stable 140 after smasca 03/07
Seizure on 03/01, no further events
metabolic acidosis stable 19
Review of Systems:
Nonoliguric
no fevers
unresponsive
Labs
-
Labs:
WBC 7.6 10^3/uL (4.8-10.8) 03/10/25 03:17
RBC 3.72 10^6/uL (4.70-6.10) L 03/10/25 03:17
Hgb 11.4 g/dL (13.0-18.0) L 03/10/25 03:17
Hct 34.0 % (39.0-52.0) L 03/10/25 03:17
Plt Count 231 10^3/uL (130-400) 03/10/25 03:17
Sodium 140 mmol/L (135-145) 03/10/25 03:17
Potassium 3.8 mmol/L (3.5-5.1) 03/10/25 03:17
Chloride 116 mmol/L (98-107) H 03/10/25 03:17
Carbon Dioxide 19 mmol/L (22-30) L 03/10/25 03:17
BUN 15 mg/dl (9-20) 03/10/25 03:17
Creatinine 0.8 mg/dL (0.7-1.3) 03/10/25 03:17
eGFR > 60.00 03/10/25 03:17
Glucose 88 mg/dl (70-99) 03/10/25 03:17
Calcium 9.1 mg/dl (8.4-10.2) 03/10/25 03:17
Phosphorus 4.0 mg/dl (2.5-4.5) 03/03/25 05:56
Albumin 3.7 g/dl (3.5-5.0) 03/07/25 14:13
Physical Exam
-
Vital Signs:
Vital Signs
Temp Pulse Resp BP Pulse Ox
97.8 F 72 14 118/60 98
03/10/25 03:43 03/10/25 09:00 03/10/25 09:00 03/10/25 09:00 03/10/25 08:01
Cardiovascular:: Regular rate and rhythm
Respiratory:: Bilateral: Coarse
Lung Excursion:: Normal
Abdomen:: Nontender and Soft
Bowel Sounds:: Normal
Extremity Edema:: None: Bilateral:
[2025-03-10 10:58] LABS: B.E. -7.6 mmol/L; HCO3 17.4 mmol/L (21-28); O2 Saturation % 99.9 % (94-98); PCO2 33 mmHg (35-48); PO2 128 mmHg (83-108)
--- NOTE | 2025-03-10 12:00 | PTCARENOTE ---
R nare dobhoff inserted per orders; secured @ 65cm and placement confirmed w x-ray. Meds switched from PO to via tube per pharmacy- see MAR. Upon dobhoff insertion pt. sat up and opened eyes; looked at RN purposefully and was able to follow a few
simple commands to assist w dobhoff insertion. Pt. oriented to self only; repeating name. Required reorientation to time/place/situation. Complete hygiene provided and repositioned. Remains on cont EEG w IVF and ketamine gtt per orders- see flow
sheet. Safe environment maintained.
--- NOTE | 2025-03-10 12:53 | W.PN.ID1 ---
Date of Service
Date of Service: March 10, 2025
Today's Communication
Await labs/LP.
Assessment / Plan
# Status epilepticus
# Encephalopathy
- Afebrile/normal wbc.
- 03/07 IR attempted LP, only few drops of CSF, enough for cx -> neg to date
- Repeat brain MRI: no acute change. Moderate diffuse volume loss, severe bilateral leukoaraiosis
- For repeat LP. If minimal fluid obtain, recommend send for meningoencephalitis PCR panel first.
- Serum West Nile Virus IgM, arbovirus serology panel, cryptococcus antigen, syphilis pending.
- Observing off abx. Low suspicion for treatable infectious encephalitis.
# Conditions present on admission
Chronic memory loss
COPD/asthma
Hypertension
TIA
Atrial fibrillation
Chronic hyponatremia
Arthritis
Anxiety/depression
BPH
Bilateral total knee replacements
Hernia repair
Left tympanoplasty
Sinus polypectomy
Chief Complaint
-: Other (Seizure, change in mental status)
Subjective / Review of Systems
Minimally responsive
Vital Signs / Physical Exam
Vital Signs
Vital Signs
Temp Pulse Resp BP Pulse Ox
97.8 F 66 14 131/70 100
03/10/25 03:43 03/10/25 12:01 03/10/25 12:01 03/10/25 12:01 03/10/25 12:01
Physical Exam
Constitutional: Acutely Ill
Cardiovascular: Regular Rate and S1/S2
Pulmonary: Clear
Gastrointestinal: Soft, Non Tender, Non Distended and Normal Bowel Sounds
Extremities: Negative Edema
Neurological: Other (unrespomnsive)
Objective Data
Lab Data
Lab Results
03/10/25 03:17
03/10/25 03:17
PT 16.4 Sec (11.4-14.6) H 03/08/25 05:27
INR 1.29 03/08/25 05:27
APTT 24.0 Sec (23.4-35.0) 03/01/25 15:29
Estimated Creat Clear 71 ml/min 03/10/25 03:17
Total Bilirubin 1.0 mg/dl (0.2-1.3) 03/07/25 14:13
AST 33 U/L (17-59) 03/07/25 14:13
ALT 29 U/L (0-50) 03/07/25 14:13
Alkaline Phosphatase 72 U/L (38-126) 03/07/25 14:13
Most recent labs reviewed.
Micro Results:
03/07/25 14:08 CSF Culture - Preliminary
Csf No Growth After 48 Hours
Gram Stain - Final
03/09/25 Brain MRI: Moderate diffuse cerebral and cerebellar volume loss. SEVERE WHITE MATTER LEUKOARAIOSIS in both cerebral hemispheres
03/08/25 AXR: Large amount of fecal material in the sigmoid colon and rectum (possibly fecal impaction in the rectum).
02/27/25 Brain MRI wo: No acute intracranial abnormality noted. Chronic senescent changes.
--- NOTE | 2025-03-10 13:24 | W.PN.HOSP.TC ---
Today's Communication/Plan
-
Assessment / Plan
Assessment / Plan
General: Chronically ill-appearing, somnolent
HEENT: NormoCephalic, dry mucous membranes, continuous EEG in place
Respiratory: Clear and Non Labored Respirations
Cardiac: irregular rhythm; heart rate around 65
GI: Soft, Non Tender, Non Distended and Normal Bowel Sounds
Musculoskeletal: No Edema, no deformity
: Oneill in place draining clear yellow urine
Neuro: Somnolent, responds to noxious stimuli, no tremor
Psych: Unable to assess
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 However, Bora
who speaks to patient every day states pt came on his own. Per Bora, patient was stating he was unable to find his Xanax prior to coming in.
CT head 02/25/25: No acute intracranial abnormality
MRI 02/27/25: No acute intracranial abnormality noted. Chronic senescent changes.
A/P:
# Seizures
- Presented with acute Anxiety with confusion
- Initially suspect secondary not being able to find Xanax prescription. Dr Penn received information from patient's friend, Bora Pereyra (phone # [phone]) who reports that patient has had increasing memory loss. They speak every day but Bora lives
in the [facility].
- Admission MRI brain obtained without acute abnormality
- Patient is not an SSRI candidate 2/2 hyponatremia
- Restarted benzo (ANIMAL GROOMER Ativan 1 mg TID), with plan to taper off before discharge as it is felt unsafe for this patient with memory issue to go home (he lives alone) with benzo
- However, later developed seizures confirmed on EEG, now on continuous EEG
- Started on ketamine drip
- Antiepileptic regimen now with Keppra 1 g IV twice daily, Vimpat 200 mg IV twice daily, and valproate 700 mg IV every 8 hours; not on Topamax due to lack of oral access
- Repeat LP pending to evaluate for possible encephalitis
- Repeat MRI 03/09 shows no abnormalities to explain his seizures, does show severe chronic senescent changes-appreciate neurology guidance
# Memory Loss, possible dementia
patient lives alone.
patient does not have family that lives close by (brother lives in [place] and they are not close).
No driving going forward. He drove himself to the hospital.
Appreciate Psych input
Appreciate neuro input
# Paroxysmal A-fib
Went into A fib
Cont Amiodarone
Added Toprol
started Eliquis 5 mg BID , hold prior to LP
Echo largely unrevealing: EF 50% Compared to a prior study from 04/11/23 The LVEF has decreased from 60% to 50%. The mitral regurgitation is also worsened somewhat and is now in the mild to moderate range.
Card on board
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
urine studies showed SIADH
s/p Samsca PRN per renal
Sodium level stable, today at 140
Nephrology consult appreciated
cont fluid restriction and salt tab BID when restarting diet
May need gentle IVF while NPO
# History of reported TIA
# HTN
resumed ANIMAL GROOMER lisinopril 20 mg daily
Monitor BP
# COPD no acute exacerbation
# Former smoker
Symbicort
# Asthma no acute exacerbation
# BPH
Flomax
# Severe constipation
cont bowel regimen Miralax and Senokot-S BID ATC
DVT prophylaxis: Lovenox SQ while Eliquis held
Full code
Dispo: pt declined memory care unit, wants to go home. Have requested CM to reach out to [employer] to look into pt's social situation.
DW RN
DW Neuro extensively
CC time 53 min
Anticipated Discharge: > 48 hours
Subjective/Interval History
-
Date of Service: March 10, 2025
Patient was seen and examined at bedside this morning. On continuous EEG. Somnolent, opens eyes but does not meaningfully interact.
Objective Data
-
Labs:
Laboratory Results
03/10/25 03/10/25
03:17 10:43
WBC 7.6
Hgb 11.4 L
Hct 34.0 L
Plt Count 231
HCO3 17.4 L
Sodium 140
Potassium 3.8
Chloride 116 H
Carbon Dioxide 19 L
BUN 15
Creatinine 0.8
Glucose 88
Calcium 9.1
Vital Signs:
Vital Signs
Temp Pulse Resp BP Pulse Ox
98.2 F 66 14 131/70 100
03/10/25 12:00 03/10/25 12:01 03/10/25 12:01 03/10/25 12:01 03/10/25 12:55
I&O
03/09/25 03/10/25 03/11/25
06:59 06:59 06:59
Intake Total 1253.2 / 1358.7 2593.0 / 2700.8 754.6 / 754.6
Output Total 950 / 950 1335 / 1385 350 / 350
Balance 303.2 / 408.7 1258.0 / 1315.8 404.6 / 404.6
Review of Systems
-
Unable to obtain full review of systems at this time due to: Acuity
Physical Exam
-
General: Appears Chronically Ill
--- NOTE | 2025-03-10 15:00 | W.PN.INTV ---
Today's Communication / Plan
Recommendations
- Check ABG
- Begin end-tidal CO2 monitoring
- Place Keofeed tube, resume oral medications
Assessment
-
84-year-old male admitted 02/25/2025 with mental status changes, found to have no abnormalities per imaging, mild hyponatremia, then noted to seizure activity 03/01 aborted with Valium, thought to be due to benzodiazepine withdrawal, then found to
have frontocentral nonconvulsive status epilepticus 03/07 initiated on Keppra, Vimpat, now transferred to ICU with ketamine drip due to ongoing intermittent seizures 03/08/2025
Conditions present prior to admission
Questionable history of TIA
Hypertension
COPD/asthma per history
BPH
Chronic constipation
03/10 overview: Current infusions ketamine, normal saline at 100 an hour. Saturating 96% on room air, current MAP of 68, not requiring any pressor support. Patient essentially unresponsive.
Assessment and plan
Plan/recommendations
#1. Status epilepticus
-Transferred to ICU 03/08. Currently on multiple medication including Topamax, valproic acid, Vimpat, Keppra and ketamine infusion.
-EEG monitoring in place, no longer having active seizures
-Unclear etiology for underlying seizure disorder. ?Benzodiazepine withdrawl
-Scheduled for repeat lumbar puncture on 03/10
#2. Acute encephalopathy, unclear etiology.
-Differential diagnosis includes postictal state, hypoactive delirium, underlying aseptic encephalitis, herpetic encephalitis, autoimmune encephalitis etc.
-Currently unresponsive however saturating normally, stat ABG performed without evidence of hypercapnia, end-tidal CO2 monitoring initiated, patient protecting airway, hold off on intubation for now however patient is at risk of requiring intubation
and mechanical ventilation for airway protection. Closely monitor in ICU
-Suspect underlying dementia
-Brain MRI unremarkable
-Strict n.p.o., keep head and of the bed elevated, aspiration precautions.
#3. Hyponatremia, ?SIADH
-Sodium 140 this morning. Mildly elevated chloride at 116.
-Currently on normal saline infusion, s/p tolvaptan therapy. Nephrology service on case
-Mild hyponatremia earlier noted unlikely to explain the degree of encephalopathy
#4. h/o Atrial fibrillation
-Had been on amiodarone, beta-jermaine, Eliquis
-Eliquis on hold in view of need for lumbar puncture. Hold Lovenox for same reason. Will resume amiodarone and beta-jermaine once oral access has been established.
-Cardiology service on case
#5. History of asthma/COPD noted
- Current presentation not suggestive of exacerbation of obstructive airway disease
- Continue scheduled budesonide and as needed DuoNeb
DVT prophylaxis: Hold enoxaparin in view of need for lumbar puncture
GI prophylaxis: Not indicated at this time
Critical Care time 43 mins -- The patient is admitted for acute critical illness for the treatment of vital organ failure and/or prevention of further life-threatening conditions. Total care includes time spent in review of history, physical exam,
medications, hemodynamic/ventilator parameters, laboratory data, imaging and discussion with house staff, pharmacy, respiratory therapy, chip tester, and nursing.
Subjective Dataa
Subjective Data
Date of Service:
Date of Service: March 10, 2025
Subjective:
Patient comfortable lying in bed in no acute distress.
Review of Systems
General: Unobtainable - Pat Unresp
Objective Data
Data Reviewed
Vital Signs / I&O / Oxygen:
Vital Signs
Temp Pulse Resp BP Pulse Ox
98.2 F 69 13 107/66 100
03/10/25 12:00 03/10/25 14:00 03/10/25 14:00 03/10/25 14:00 03/10/25 14:00
Intake and Output
03/09/25 03/10/25 03/11/25
06:59 06:59 06:59
Intake Total 1253.2 / 1358.7 2593.0 / 2700.8 922.4 / 922.4
Output Total 950 / 950 1335 / 1385 425 / 425
Balance 303.2 / 408.7 1258.0 / 1315.8 497.4 / 497.4
SaO2 100
Nasal Cannula flow liters per 2
minute
Physical Exam
General: Comfortable
HEENT: Normocephalic
Cardiovascular: S1-S2
Respiratory: Clear
GI: Non Distended
Neurology: Other (Patient essentially unresponsive. However protecting his airway's, no stridor noted.)
Skin: Warm
Labs/Micro/Reports
Lab Data
03/10/25 03:17
03/10/25 03:17
Laboratory Results
03/10/25
10:43
pH 7.33 L
pCO2 33 L
pO2 128 H
HCO3 17.4 L
O2 Delivery Level
Microbiology
03/07/25 14:08 Csf CSF Culture - Preliminary
No Growth After 48 Hours
03/07/25 14:08 Csf Gram Stain - Final
--- NOTE | 2025-03-10 15:36 | CM ---
Addendum entered by Rina Tejada 03/10/25 15:43:
Patient previously stated he does not want SNF.
Original Note:
IV/Vimpat and Valproate, guerra, somnolent, responds to noxious stimuli. Discharge POC: Therapy recommends SNF. Unable to discuss preferences with patient due to his mental status. No family except a brother with whom he is not close. Brother
lives in [facility]. Discharge POC: SNF. Will discuss preferences with patient when he is able.
--- NOTE | 2025-03-10 16:12 | PTCARENOTE ---
pt. remains on IVF and ketamine gtt per orders- see flow sheet. Upon tactile stim; pt. opens eyes spont, tracks, and follows simple commands of 'squeeze hands' and 'wiggle toes.' Pt. also w non-purposeful movements but still MADDOX. Pt. also
oriented to self/ place and month; required reorientation to situation and date/year. Plan remains for IR procedure today for LP; awaiting IR for timing. Also, touched base w neuro, Dr. Ortiz, and pt. remains w out seizures on EEG; plan to taper down
ketamine gtt tomorrow if seizures remain absent overnight per Dr. Ortiz. Pt, repositioned per protocol and safe environment maintained.
--- NOTE | 2025-03-10 18:28 | PTCARENOTE ---
IR unable to perform LP today; plan for tomorrow, will pass along to next shift.
[2025-03-10] MEDS: SODIUM CHLORIDE 1 GRAM TUBE (19:37)
[2025-03-10] MEDS: TOPAMAX 200 MG TUBE (19:37)
[2025-03-10] MEDS: PACERONE 200 MG TUBE (19:38)
[2025-03-10] MEDS: LOPRESSOR 12.5 MG TUBE (19:40)
--- NOTE | 2025-03-10 20:00 | PTCARENOTE ---
Rec'd pt w/ neuro status waxing & waning, occas opens eyes, MARIANN at3mm, oriented to person, states hes in [place], has rambling words, occas follows simple commands= hand grasps, wiggles toes, other times is lethargic & not following any
commands, mitts applied since pt was touching dobhoff, seizure precautions maintained, on ketamine gtt at 1mg, cont EEG on,MADDOX, afib, + pulses, + LE edema, skin warm, dry, RA, sat 98, ETCO2- 20, lungs decr throughout, no cough, hypo bowel sounds,
inc smear brown bm, R nares dobhoff at 63 cm for meds, no vomiting, NPO, guerra draining yellow urine
--- NOTE | 2025-03-10 20:59 | EEGC.RPT ---
Continuous EEG Report
Recording
Start Date of Data Reviewed: 03/09/25
Start Time of Data Reviewed: 15:31
End Date of Data Reviewed: 03/09/25
End Time of Data Reviewed: 21:11
Type of EEG: Continuous
Done with Video Recording: Yes
Study Sequence: Continuation of ongoing Study
Electrocardiogram: Irregularly Irregular
Report
Clinical Background:�84 year old man with seizures
Introduction: continuation of ICU EEG was done using [employer] 10-20 electrode placement protocol.
Meds: include Keppra, Vimpat, valproate, Topamax, Ketamine
Background: In the most alert state, the PDR is 9-10 Hz in frequency with normal amplitude. There is spontaneous variability and reactivity.�
Sleep: some spindles are seen
Focal/epileptiform: No interictal epileptiform discharges were seen
Seizure: the seizure consists of rhythmic delta activity 3-4 Hz, which may be focal left hemispheric, or generalized.
Narrative: the patient is reconnected to EEG at 3:31 pm after return from MRI. patient had brief seizures lasting a few minutes at 9:04, 9:27, 9:37, 10:11 am. Ketamine increased to 1.0 mg/kg/hr, and there were no further seizures. At 9:11 pm,
patient pulled off all the electrodes.
Impression: highly epileptogenic zone in left frontocenral region, seen in the previous study, and EEG seizures which have improved with treatment.
[2025-03-10] MEDS: MELATONIN TUBE (22:21)
[2025-03-11] VITALS (22 sets, daily range): BP systolic 113–162; BP diastolic 64–109; BMI 25.3
--- NOTE | 2025-03-11 00:20 | PTCARENOTE ---
sys review, changes noted, lethargic, opens eyes, not following commands, MARIANN at 3mm, CHG bath done, linens changed
[2025-03-11] MEDS: NSS 1000 IV (01:57)
[2025-03-11] MEDS: KETAMINE HCL 100 MG IV (01:59)
[2025-03-11 03:29] LABS: Hematocrit 37.3 % (39.0-52.0); Hemoglobin 12.6 g/dL (13.0-18.0); Mean Corp Hgb Conc. 33.8 g/dL (33.0-37.0); Mean Corpuscular Volume 93.0 fL (80.0-94.0); Platelet Count 218 10^3/uL (130-400); Red Cell Dist. Width 13.8 % (11.5-14.5); Venous Blood Gas B.E. -9.6 mmol/L (-4 to +4); Venous Blood Gas O2 Sat % 98.8 %
--- NOTE | 2025-03-11 03:52 | PTCARENOTE ---
sys reviewed, neuro status cont to ax and wane, now nonverbal, an hour ago kept repeating 'I need salt'
--- NOTE | 2025-03-11 03:53 | PTCARENOTE ---
sys reviewed, neuro status cont to wax and wane, now not talking. MARIANN at 3mm, an hour ago kept repeating 'I need salt'
--- NOTE | 2025-03-11 03:54 | PTCARENOTE ---
Donya Arreaga NP aware of bp- to cont to monitor
[2025-03-11 04:00] LABS: Blood Urea Nitrogen 12 mg/dl (9-20); Calcium 8.7 mg/dl (8.4-10.2); Carbon Dioxide 15 mmol/L (22-30); Chloride 113 mmol/L (98-107); Estimated Creatinine Clearance 71 ml/min; Glucose 79 mg/dl (70-99); Potassium 4.0 mmol/L (3.5-5.1); Sodium 138 mmol/L (135-145); eGFR > 60.00
[2025-03-11] MEDS: SODIUM BICARBONATE 1075 MEQ IV (05:26)
[2025-03-11] MEDS: DEPACON 57.5 MG IV ×3 (05:28→21:27)
--- NOTE | 2025-03-11 05:29 | PTCARENOTE ---
IVF changed to 1/2 nss w/ 75 bicarb at 75/hr per order
[2025-03-11] MEDS: PULMICORT 0.5 MG INH ×2 (07:22→19:18)
[2025-03-11] MEDS: DUONEB 3 ML INH ×2 (07:23→19:18)
--- NOTE | 2025-03-11 08:37 | W.PN.NEURO.1 ---
Today's Communication / Plan
-
Ketamine gtt 1.0-->0.5 mg/kg/hr and will titrate off
await LP
Neuro Assessment/Plan
Assessment
Abrupt onset of worsening confusion
New episode of seizure described as generalized tonic-clonic lasting for approximately 2 minutes before total resolution on 03/07/2025
Exam very fluctuating based on whether or not he is actively seizing.
03/08 his condition worsening, in that today the EEG seizure activity is now spreading to his right hemisphere, this afternoon now in nonconvulsive status epilepticus and he is requiring more meds to get the seizures controlled
my concern for encephalitis viral >> autoimmune. I don't believe we have solved this case yet
03/08 while he was lucid AAOx3 I explained to him my suspicions.
repeat MRI brain 03/09 showing severe chronic senescent changes no explanation for his sz
will need to repeat LP try to get more CSF at least for cells/chem/PCR after hydration. with his SIADH, being fluid restricted, spoke with nephkristofer villeda to rehydrate for LP
AEDs Keppra 1000 BID, Vimpat 200 BID, topiramate 200 BID, Depakote 750 q8 at 7a, 3p, 11p, trough 92.8 on 03/09 and 93.7 on 03/12 so he is stable
Ketamine gtt@1.0 mg/kg/hr subanesthetic
Plan
continuous EEG monitoring
Obtain new MRI of brain with and without contrast
Check lumbar puncture
continue AEDs as above
Will follow
Subjective/Objective
Subjective Data
Date of Service: March 11, 2025
remains stuporous
Irad was too busy to do LP yesterday.
no sz ~36 hours
Objective Data
Vital Signs
Temp Pulse Resp BP Pulse Ox
37.0 C 86 15 153/97 99
03/11/25 08:00 03/11/25 07:26 03/11/25 07:26 03/11/25 06:05 03/11/25 07:26
Lab Results
03/11/25 03:23
03/11/25 03:23
PT 16.4 Sec (11.4-14.6) H 03/08/25 05:27
INR 1.29 03/08/25 05:27
APTT 24.0 Sec (23.4-35.0) 03/01/25 15:29
Sodium 138 mmol/L (135-145) 03/11/25 03:23
Potassium 4.0 mmol/L (3.5-5.1) 03/11/25 03:23
BUN 12 mg/dl (9-20) 03/11/25 03:23
Glucose 79 mg/dl (70-99) 03/11/25 03:23
Calcium 8.7 mg/dl (8.4-10.2) 03/11/25 03:23
Phosphorus 4.0 mg/dl (2.5-4.5) 03/03/25 05:56
LDL Cholesterol, Calc 62 mg/dl 02/26/25 07:11
Vitamin B12 690 pg/ml (239-931) 02/26/25 07:11
Ur Buprenorphine Cancelled 02/25/25 20:30
Patient Allergies
No Known Allergies Allergy (Verified 02/25/25 15:16)
Physical Exam
-
stuporous, not following commands
moving all extremities
--- NOTE | 2025-03-11 08:39 | W.PN.CARDCBS ---
Today's Communication / Plan
-
Continue amiodarone
Restart Eliquis tonight following LP
Impression / Plan
-
PCP Dr. Kathrin Underwood
Cardiology: Dr. Damian Grant, last seen 01/09/2024
Impression:
Admitted with confusion and hyponatremia 02/25/2025
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
Hyponatremia
Recurrence of A-fib with RVR 03/05/2025
Paroxysmal A-fib
Previously not chronically anticoagulated by patient choice
h/o TIA
Hyperlipidemia
h/o Alcohol abuse
Anxiety
Aortic atherosclerosis
Echo 04/11/2023: EF 55 to 60%, stage II diastolic dysfunction, mild MR, mild peak/mean 24/13 mmHg, mild aortic regurgitation
Echo 03/06/25: EF 50%, mild to moderate MR, mild AI, PA pressure 20
Plan:
He remains in atrial fibrillation with a controlled ventricular response.
Anticoagulation has been held pending LP which is scheduled for today. Will resume Eliquis tonight.
Continue amiodarone 200 twice daily via the tube.
Continue metoprolol tartrate 12.5 twice daily for the same.
No evidence of volume overload at this time.
Cardiac status overall stable, though neurologic prognosis guarded.
HPI 03/06/2025:
Patient was initially admitted on 02/25/2025 with confusion and cardiology is now consulted on 03/06/2025 for recurrence of A-fib first seen on 03/05/2025. Patient was initially admitted on 02/25/2025 with confusion and hyponatremia. Patient has a
history of hyponatremia. At time of admission it was unclear if there was an underlying diagnosis of dementia, a close friend reported there had been increasing changes in forgetfulness and memory lapses, but with the patient's brother who he is
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 Regardless patient had MRI of the brain 02/25/2025 that showed no acute changes and patient was slated for discharge to home, but
then had a rapid response on 03/01/2025 for seizure x 3 that was attributed to benzodiazepine withdrawal. Patient was transferred to [facility] yesterday and later in the day was noted to have a change on telemetry and he was back in A-fib.
Progress Note - [employer]
Subjective
Date of Service: March 11, 2025:
84-year-old male with history of paroxysmal A-fib on amiodarone and known hyponatremia related to SIADH who was admitted with confusion. In hospital he had seizures initially attributed to benzodiazepine withdrawal. Subsequently developed status
epilepticus. Historically has declined anticoagulation despite history of TIA.
PMH: Paroxysmal A-fib, history of alcohol abuse, though not recent by report, remote TIA, anxiety, hypercholesterolemia
Current meds: Furosemide 20 mg every 48 hours, apixaban 5 mg twice daily, Senokot, MiraLAX, all currently on hold. Keppra 1000 mg IV every 12, Vimpat 200 IV every 12, subcu Lovenox, IV ketamine, DuoNebs, Pulmicort, valproate IV, amiodarone 200 mg
twice daily via tube,, atorvastatin 40 mg via tube daily, melatonin, metoprolol tartrate 12.5 mg twice daily, Flomax, Topamax 200 twice daily, IV bicarb at 75 an hour
153/97, pulse 86, remains very sedated, not intubated, head neck exam with temporal wasting, now with feeding tube, lungs are clear, soft systolic murmur, abdomen benign extremities without clubbing cyanosis or edema,
Chest x-ray yesterday, mild cardiomegaly rotated
Hemoglobin 12.6, pH 7.33, [id number], PO2 128, bicarb is 17 as of 825, bicarb is 15, anion gap is 11, BUN is 12, creatinine is 0.8
Objective
Labs:
03/11/25 03:23
03/11/25 03:23
Labs
Hgb 12.6 g/dL (13.0-18.0) L 03/11/25 03:23
Hct 37.3 % (39.0-52.0) L 03/11/25 03:23
Plt Count 218 10^3/uL (130-400) 03/11/25 03:23
PT 16.4 Sec (11.4-14.6) H 03/08/25 05:27
INR 1.29 03/08/25 05:27
APTT 24.0 Sec (23.4-35.0) 03/01/25 15:29
Sodium 138 mmol/L (135-145) 03/11/25 03:23
Potassium 4.0 mmol/L (3.5-5.1) 03/11/25 03:23
BUN 12 mg/dl (9-20) 03/11/25 03:23
Creatinine 0.8 mg/dL (0.7-1.3) 03/11/25 03:23
Glucose 79 mg/dl (70-99) 03/11/25 03:23
Vital Signs and I&O:
Vital Signs
Temp Pulse Resp BP Pulse Ox
37.0 C 95 26 113/78 99
03/11/25 08:00 03/11/25 08:00 03/11/25 08:00 03/11/25 08:00 03/11/25 08:00
Vital Signs
Temp Pulse Resp BP Pulse Ox
37.0 C 95 26 113/78 99
03/11/25 08:00 03/11/25 08:00 03/11/25 08:00 03/11/25 08:00 03/11/25 08:00
Intake & Output
03/09/25 03/10/25 03/11/25 03/12/25
07:59 07:59 07:59 07:59
Intake Total 1358.7 / 1421.7 2595.3 / 2703.1 2702.2 / 2785.0 82.8 / 82.8
Output Total 950 / 950 1385 / 1435 1665 / 1665
Balance 408.7 / 471.7 1210.3 / 1268.1 1037.2 / 1120.0 82.8 / 82.8
Physical Exam
Physical Exam
See above
[2025-03-11] MEDS: SODIUM CHLORIDE 1 GRAM TUBE ×2 (08:51→20:15)
[2025-03-11] MEDS: FLOMAX 0.4 MG TUBE (08:51)
[2025-03-11] MEDS: LIPITOR 40 MG TUBE (08:51)
[2025-03-11] MEDS: PACERONE 200 MG TUBE ×2 (08:51→20:15)
[2025-03-11] MEDS: LOPRESSOR 12.5 MG TUBE ×2 (08:51→20:15)
[2025-03-11] MEDS: VIMPAT 200 MG IV ×2 (08:51→20:07)
[2025-03-11] MEDS: TOPAMAX 200 MG TUBE ×2 (08:51→20:15)
[2025-03-11] MEDS: KEPPRA 1000 MG IV ×2 (08:53→20:07)
--- NOTE | 2025-03-11 09:44 | PTCARENOTE ---
Assumed care of pt from mini shifter RN. Pt lethargic, eyes open to tactile stimuli. Unable to follow commands; able to move all extremities. Pupils 3mm/brisk reaction to light bilaterally. Speech garbled. Continuous EEG remains in place. Ketamine
gtt decreased to 0.5mg/kg/hr per Neurology order. Remains in a.fib on tele, HRs 90s-100s. SpO2 99% on room air. Lungs diminished throughout. DH tube remains at 63cm in R nare. Meds administered via DH tube. Oneill draining clear, yellow urine. IVF
infusing per order. Pt remains on q2h turn schedule. Pt in bed, call villegas in reach. Assessment documented.
--- NOTE | 2025-03-11 10:28 | W.PN.ID1 ---
Date of Service
Date of Service: March 11, 2025
Today's Communication
Observe off abx.
Assessment / Plan
# Seizure 03/01, 03/07 (status)
# Encephalopathy
- No seizure x 36h per neurologist
- Afebrile/normal wbc.
- 03/07 IR attempted LP, only few drops of CSF, enough for cx -> neg to date
- Repeat brain MRI: no acute change. Moderate diffuse volume loss, severe bilateral leukoaraiosis
- For repeat LP. If minimal fluid obtain, recommend send for meningoencephalitis PCR panel first.
- Serum West Nile Virus IgM, arbovirus serology panel, cryptococcus antigen, syphilis pending.
- Observing off abx. Low suspicion for treatable infectious encephalitis.
# Conditions present on admission
Chronic memory loss
COPD/asthma
Hypertension
TIA
Atrial fibrillation
Chronic hyponatremia
Arthritis
Anxiety/depression
BPH
Bilateral total knee replacements
Hernia repair
Left tympanoplasty
Sinus polypectomy
Chief Complaint
-: Other (Seizure, change in mental status)
Subjective / Review of Systems
Awake, somewhat restless. He is aware he is in hospital. no REED.
Vital Signs / Physical Exam
Vital Signs
Vital Signs
Temp Pulse Resp BP Pulse Ox
98.6 F 83 26 113/78 98
03/11/25 08:00 03/11/25 08:51 03/11/25 08:00 03/11/25 08:51 03/11/25 09:27
Physical Exam
Constitutional: Acutely Ill
Eyes: No Conjunctival Hemorrhage and Sclera Anicteric
Cardiovascular: Regular Rate and S1/S2
Pulmonary: Clear
Gastrointestinal: Soft, Non Tender, Non Distended and Normal Bowel Sounds
Genito-Urinary: Negative CVA Tenderness
Extremities: Negative Edema
Musculoskeletal: Negative Joint Swelling or Joint Effusion
Neurological: Awake and Oriented ( x 2)
Psychological: Other (Restless, pulling on his gown)
Objective Data
Lab Data
Lab Results
03/11/25 03:23
03/11/25 03:23
PT 16.4 Sec (11.4-14.6) H 03/08/25 05:27
INR 1.29 03/08/25 05:27
APTT 24.0 Sec (23.4-35.0) 03/01/25 15:29
Estimated Creat Clear 71 ml/min 03/11/25 03:23
Total Bilirubin 1.0 mg/dl (0.2-1.3) 03/07/25 14:13
AST 33 U/L (17-59) 03/07/25 14:13
ALT 29 U/L (0-50) 03/07/25 14:13
Alkaline Phosphatase 72 U/L (38-126) 03/07/25 14:13
Most recent labs reviewed.
Micro Results:
03/07/25 14:08 CSF Culture - Preliminary
Csf No Growth After 48 Hours
Gram Stain - Final
03/09/25 Brain MRI: Moderate diffuse cerebral and cerebellar volume loss. SEVERE WHITE MATTER LEUKOARAIOSIS in both cerebral hemispheres
03/08/25 AXR: Large amount of fecal material in the sigmoid colon and rectum (possibly fecal impaction in the rectum).
02/27/25 Brain MRI wo: No acute intracranial abnormality noted. Chronic senescent changes.
Care Review
Plan reviewed with: Physician (Dr. Zack Ortiz)
--- NOTE | 2025-03-11 10:34 | W.PN.NEPH.PH ---
Today's Communication / Plan
-
IV fluid
Assessment/Plan
-
Impression:
Acute on chronic euvolemic hyponatremia (126)
Change of mental status
History of depression and anxiety
History of atrial fibrillation
History of hypertension
History of COPD
BPH
Seizure 03/01/25
Plan:
follow BMP
Na remains stable normal as he has no significant intake currently
IV fluid with bicarbonate
NG tube in place, eventually enteral feeding and may add bicarbonate tablets as well
-
-
Date of Service: March 11, 2025
CC / HPI / ROS
-
Chief Complaint:
Hyponatremia
History of Present Illness:
Blood pressure controlled
Na stable 138 after smasca 03/07
Seizure on 03/01, no further events
metabolic acidosis worsened 15
Review of Systems:
Nonoliguric
no fevers
unresponsive
Labs
-
Labs:
WBC 10.0 10^3/uL (4.8-10.8) 03/11/25 03:23
RBC 4.01 10^6/uL (4.70-6.10) L 03/11/25 03:23
Hgb 12.6 g/dL (13.0-18.0) L 03/11/25 03:23
Hct 37.3 % (39.0-52.0) L 03/11/25 03:23
Plt Count 218 10^3/uL (130-400) 03/11/25 03:23
Sodium 138 mmol/L (135-145) 03/11/25 03:23
Potassium 4.0 mmol/L (3.5-5.1) 03/11/25 03:23
Chloride 113 mmol/L (98-107) H 03/11/25 03:23
Carbon Dioxide 15 mmol/L (22-30) L 03/11/25 03:23
BUN 12 mg/dl (9-20) 03/11/25 03:23
Creatinine 0.8 mg/dL (0.7-1.3) 03/11/25 03:23
eGFR > 60.00 03/11/25 03:23
Glucose 79 mg/dl (70-99) 03/11/25 03:23
Calcium 8.7 mg/dl (8.4-10.2) 03/11/25 03:23
Phosphorus 4.0 mg/dl (2.5-4.5) 03/03/25 05:56
Albumin 3.7 g/dl (3.5-5.0) 03/07/25 14:13
Physical Exam
-
Vital Signs:
Vital Signs
Temp Pulse Resp BP Pulse Ox
98.6 F 83 26 113/78 98
03/11/25 08:00 03/11/25 08:51 03/11/25 08:00 03/11/25 08:51 03/11/25 09:27
Cardiovascular:: Regular rate and rhythm
Respiratory:: Bilateral: Coarse
Lung Excursion:: Normal
Abdomen:: Nontender and Soft
Bowel Sounds:: Normal
Extremity Edema:: None: Bilateral:
[2025-03-11] MEDS: SODIUM BICARBONATE 1150 MEQ IV ×2 (11:04→22:07)
--- NOTE | 2025-03-11 12:47 | PTCARENOTE ---
Ketamine gtt discontinued. IVF switched by Nephrology to Sterile Water w/ 150mEq Bicarb @ 100mL/hr. Pt off of floor to IRAD for repeat LP at this time.
--- NOTE | 2025-03-11 13:21 | W.PN.UPDATE ---
Update Note
Progress Note Update
pt seen briefly yesterday and again today. yesterday deeply sedated/unresponsive; today able to state that he is in [facility]. Perseverates on that answer when asked own name and date, able to eventually state his name as 'José Antonio' and when
asked how he was feeling said 'not bad'. More alert; further neuro workup pending.
--- NOTE | 2025-03-11 13:47 | W.PN.HOSP.TC ---
Today's Communication/Plan
-
Assessment / Plan
Assessment / Plan
General: Chronically ill-appearing, sedated
HEENT: NormoCephalic, dry mucous membranes, continuous EEG in place
Respiratory: Clear and Non Labored Respirations
Cardiac: irregular rhythm; heart rate around 75
GI: Soft, Non Tender, Non Distended and Normal Bowel Sounds
Musculoskeletal: No Edema, no deformity
: Oneill in place draining clear yellow urine
Neuro: Somnolent, responds to noxious stimuli, no tremor
Psych: Unable to assess
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 However, Bora
who speaks to patient every day states pt came on his own. Per Bora, patient was stating he was unable to find his Xanax prior to coming in.
CT head 02/25/25: No acute intracranial abnormality
MRI 02/27/25: No acute intracranial abnormality noted. Chronic senescent changes.
A/P:
# Seizures
- Presented with acute Anxiety with confusion
- Initially suspect secondary not being able to find Xanax prescription. Dr Penn received information from patient's friend, Bora Pereyra (phone # [phone]) who reports that patient has had increasing memory loss. They speak every day but Bora lives
in the [place].
- Admission MRI brain obtained without acute abnormality
- Patient is not an SSRI candidate 2/2 hyponatremia
- Restarted benzo (SILL WORKER Ativan 1 mg TID), with plan to taper off before discharge as it is felt unsafe for this patient with memory issue to go home (he lives alone) with benzo
- However, later developed seizures confirmed on EEG, now on continuous EEG
- Weaning off ketamine drip
- Antiepileptic regimen now with Keppra 1 g IV twice daily, Vimpat 200 mg IV twice daily, valproate 700 mg IV every 8 hours, and Topamax 200 mg via NGT twice daily
- Repeat LP pending to evaluate for possible encephalitis, monitoring off antibiotics for now
- Repeat MRI 03/09 shows no abnormalities to explain his seizures, does show severe chronic senescent changes-appreciate neurology guidance
# Memory Loss, possible dementia
patient lives alone.
patient does not have family that lives close by (brother lives in [place] and they are not close).
No driving going forward. He drove himself to the hospital.
Appreciate Psych input
Appreciate neuro input
# Paroxysmal A-fib
Went into A fib
Cont Amiodarone
Added Toprol
started Eliquis 5 mg BID , holding prior to LP
Echo largely unrevealing: EF 50% Compared to a prior study from 04/11/23 The LVEF has decreased from 60% to 50%. The mitral regurgitation is also worsened somewhat and is now in the mild to moderate range.
Card on board
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
urine studies showed SIADH
s/p Samsca PRN per renal
Sodium level stable, today at 138
Started bicarb drip
Nephrology consult appreciated
# History of reported TIA
# HTN
resumed SILL WORKER lisinopril 20 mg daily
Monitor BP
# COPD no acute exacerbation
# Former smoker
Symbicort
# Asthma no acute exacerbation
# BPH
Flomax
# Severe constipation
cont bowel regimen Miralax and Senokot-S BID ATC when tolerating p.o.
DVT prophylaxis: SCDs while Eliquis held
Full code
Dispo: pt declined memory care unit, wants to go home. Have requested CM to reach out to [employer] to look into pt's social situation.
CC time 53 min
Anticipated Discharge: > 48 hours
Subjective/Interval History
-
Date of Service: March 11, 2025
Patient was seen and examined bedside this morning. Remains somnolent and on ketamine drip. Repeat LP pending.
Objective Data
-
Labs:
Laboratory Results
03/11/25
03:23
WBC 10.0
Hgb 12.6 L
Hct 37.3 L
Plt Count 218
Sodium 138
Potassium 4.0
Chloride 113 H
Carbon Dioxide 15 L
BUN 12
Creatinine 0.8
Glucose 79
Calcium 8.7
Vital Signs:
Vital Signs
Temp Pulse Resp BP Pulse Ox
99.0 F 79 17 140/79 99
03/11/25 12:07 03/11/25 12:39 03/11/25 12:39 03/11/25 12:39 03/11/25 12:39
I&O
03/10/25 03/11/25 03/12/25
06:59 06:59 06:59
Intake Total 2593.0 / 2700.8 2727.2 / 2810.0 523.4 / 523.4
Output Total 1335 / 1385 1675 / 1715 695 / 695
Balance 1258.0 / 1315.8 1052.2 / 1095.0 -171.6 / -171.6
Review of Systems
-
Unable to obtain full review of systems at this time due to: Acuity
Physical Exam
-
Neuro: Sedated
[2025-03-11 13:53] LABS: Syphilis/T. pallidum Ab Reflex Negative (Negative)
[2025-03-11 15:03] LABS: CSF Color Colorless; Red Cell Count/CSF 20 mm^3
[2025-03-11 15:04] LABS: White Cell Count/CSF 1 mm^3 (0-5)
--- NOTE | 2025-03-11 15:12 | W.PN.INTV ---
Today's Communication / Plan
Recommendations
- Discontinue ketamine
- Continue end-tidal CO2 monitoring
- Start tube feeding
- Resume Eliquis 03/12
Assessment
-
84-year-old male admitted 02/25/2025 with mental status changes, found to have no abnormalities per imaging, mild hyponatremia, then noted to seizure activity 03/01 aborted with Valium, thought to be due to benzodiazepine withdrawal, then found to
have frontocentral nonconvulsive status epilepticus 03/07 initiated on Keppra, Vimpat, now transferred to ICU with ketamine drip due to ongoing intermittent seizures 03/08/2025
Conditions present prior to admission
Questionable history of TIA
Hypertension
COPD/asthma per history
BPH
Chronic constipation
03/11 overview: Current infusions ketamine, sterile water with bicarb infusing at 100 mL/h.. Saturating 96% on room air, current MAP of 70, not requiring any pressor support. Patient more responsive, briefly opens eyes.
Assessment and plan
#1. Status epilepticus
-Transferred to ICU 03/08. Currently on multiple medication including Topamax, valproic acid, Vimpat, Keppra and ketamine infusion.
-EEG monitoring in place, no longer having active seizures
-Unclear etiology for underlying seizure disorder. ?Benzodiazepine withdrawl
- Repeat lumbar puncture 03/11, await fluid studies
#2. Acute encephalopathy, unclear etiology.
-Differential diagnosis includes postictal state, hypoactive delirium, underlying aseptic encephalitis, herpetic encephalitis, autoimmune encephalitis etc.
-Patient appears more awake today and more responsive, briefly opens eyes. Able to say few words. Discontinue ketamine infusion
-Suspect underlying dementia
-Brain MRI unremarkable
- Start tube feeding
#3. Hyponatremia, ?SIADH
-Sodium 138 this morning. Mildly elevated chloride at 113.
-Mild hyponatremia earlier noted unlikely to explain the degree of encephalopathy
#4. h/o Atrial fibrillation
-Had been on amiodarone, beta-jermaine, Eliquis
- Resume Eliquis 03/12, resume amiodarone and beta-jermaine since oral access is in place.
-Cardiology service on case
#5. History of asthma/COPD noted
- Current presentation not suggestive of exacerbation of obstructive airway disease
- Continue scheduled budesonide and as needed DuoNeb
#6. Non-anion gap metabolic acidosis, hyperchloremic.
- Suspect iatrogenic related to normal saline infusion
- Nephrology service on case, IV fluids switched to sterile water with bicarb, labs in a.m.
DVT prophylaxis: Resume Eliquis 03/12.
GI prophylaxis: Not indicated at this time
Critical Care time 40 mins -- The patient is admitted for acute critical illness for the treatment of vital organ failure and/or prevention of further life-threatening conditions. Total care includes time spent in review of history, physical exam,
medications, hemodynamic/ventilator parameters, laboratory data, imaging and discussion with house staff, pharmacy, respiratory therapy, rn hemodialysis charge, and nursing.
Subjective Dataa
Subjective Data
Date of Service:
Date of Service: March 11, 2025
Subjective:
Continues to be lethargic, appears to be more responsive than over 03/10
Review of Systems
General: Other (Unable to obtain due to patient's mental status)
Objective Data
Data Reviewed
Vital Signs / I&O / Oxygen:
Vital Signs
Temp Pulse Resp BP Pulse Ox
99.0 F 94 19 147/71 100
03/11/25 12:07 03/11/25 15:00 03/11/25 15:00 03/11/25 13:21 03/11/25 15:00
Intake and Output
03/10/25 03/11/25 03/12/25
06:59 06:59 06:59
Intake Total 2593.0 / 2700.8 2727.2 / 2810.0 880.9 / 880.9
Output Total 1335 / 1385 1675 / 1715 825 / 825
Balance 1258.0 / 1315.8 1052.2 / 1095.0 55.9 / 55.9
SaO2 100
Nasal Cannula flow liters per 2
minute
Physical Exam
General: Comfortable
HEENT: Normocephalic
Cardiovascular: S1-S2
Respiratory: Clear
GI: Non Distended
Neurology: Other (Lethargic, more responsive and protecting airway.)
Skin: Warm
Labs/Micro/Reports
Lab Data
03/11/25 03:23
03/11/25 03:23
Microbiology
03/07/25 14:08 Csf CSF Culture - Preliminary
No Growth After 72 Hours
03/07/25 14:08 Csf Gram Stain - Final
--- NOTE | 2025-03-11 17:29 | PTCARENOTE ---
Pt neuro status continues waxing & waning throughout the day. At times pt is able to correctly answer he is at [facility] and that the month is February; however, he remains unable to follow commands. He is able to spontaneously move all
extremities. IRAD was able to successfully preform repeat LP today. Nutrition consult placed for initiation of tube feeds. Assessment otherwise unchanged. Pt remains in bed with bed alarm in place. Call villegas in reach.
--- NOTE | 2025-03-11 20:00 | PTCARENOTE ---
Rec'd pt lethargic but arousable, when asked name states'col[place]' and when asked where he was stated '[place]'; then he kept repeating the same words, was able to wiggle fingers and toes to command, then drifted off to sleep, og at 2mm, neuro
status waxes and wanes, no seizure activity noted, remains on cont EEG; afib, + pulses, skin warm/dry, RA, lungs decr, etco2 20, occas NPC, sat 93, hypo bowel sounds, inc brown soft BM, gisselle care given, dobhoff clotted,K Frank, GUIDE DOG MOBILITY INSTRUCTOR inserted new R
nares dobhoff at 63 cm at 2100, cxr pending , thermister guerra draining yellow urine
--- NOTE | 2025-03-11 21:09 | EEGC.RPT ---
Continuous EEG Report
Recording
Start Date of Data Reviewed: 03/10/25
Start Time of Data Reviewed: 08:43
End Date of Data Reviewed: 03/11/25
End Time of Data Reviewed: 07:00
Type of EEG: Continuous
Done with Video Recording: Yes
Study Sequence: Continuation of ongoing Study
Electrocardiogram: Irregularly Irregular
Report
Clinical Background:�84 year old man with seizures
Introduction: continuation of ICU EEG was done using International 10-20 electrode placement protocol.
Meds: include Keppra, Vimpat, valproate, Topamax, Ketamine
Background: In the most alert state, the PDR is 9-10 Hz in frequency with normal amplitude. There is spontaneous variability and reactivity.�
Sleep: some spindles are seen
Focal/epileptiform: No interictal epileptiform discharges were seen
Seizure: none
Narrative: the patient is reconnected to EEG at 8:43 am, and no further seizures are seen.
Impression: No further seizures. The highly epileptogenic zone in left frontocenral region seen in the previous study and EEG seizures have resolved.
--- NOTE | 2025-03-11 21:14 | EEGC.RPT ---
Continuous EEG Report
Recording
Start Date of Data Reviewed: 03/11/25
Start Time of Data Reviewed: 07:00
End Date of Data Reviewed: 03/12/25
End Time of Data Reviewed: 07:00
Type of EEG: Continuous
Done with Video Recording: Yes
Study Sequence: Continuation of ongoing Study
Electrocardiogram: Irregularly Irregular
Report
Clinical Background:�84 year old man with seizures
Introduction: continuation of ICU EEG was done using International 10-20 electrode placement protocol.
Meds: include Keppra, Vimpat, valproate, Topamax, Ketamine
Background: continuous generalized low amplitude delta activity with some overriding beta
Sleep: some spindles are seen
Focal/epileptiform: No interictal epileptiform discharges were seen
Seizure: begins ~1:14 am, and builds up into 2 hz continuous spike and waves or rhythmic delta by 1:30 am. the seizures are intermittent.
Impression: 1:14 am the patient is back in status epilepticus stage I
[2025-03-11] MEDS: MELATONIN TUBE (21:28)
--- NOTE | 2025-03-11 22:08 | W.PN.UPDATE ---
Update Note
Progress Note Update
Patient pulled Dobbhoff tube out. Replaced Dobbhoff tube by me, Dobbhoff auscultated over the stomach, and obtained chest xray for confirmation.
--- NOTE | 2025-03-11 22:30 | PTCARENOTE ---
cxr confirmed placement of dobhoff, able to give meds, to start tube fdg
[2025-03-12] VITALS (26 sets, daily range): BP systolic 107–184; BP diastolic 62–149; BMI 25.4
--- NOTE | 2025-03-12 | PTCARENOTE ---
sys reviewed, neuro status cont to wax and wane, not following commands, jevity 1.5 at 20ml/hr and 25ml/hr h20 flush started via R nares dobhoff
[2025-03-12 01:06] LABS: West Nile Virus, IgM, Serum 0.00 IV (<=0.89)
--- NOTE | 2025-03-12 01:56 | PTCARENOTE ---
CHG bath done, linens changed
[2025-03-12 03:34] LABS: Hematocrit 34.4 % (39.0-52.0); Hemoglobin 12.0 g/dL (13.0-18.0); Mean Corp Hgb Conc. 34.9 g/dL (33.0-37.0); Mean Corpuscular Volume 88.7 fL (80.0-94.0); Platelet Count 216 10^3/uL (130-400); Red Cell Dist. Width 13.5 % (11.5-14.5)
[2025-03-12 03:59] LABS: Blood Urea Nitrogen 13 mg/dl (9-20); Calcium 8.5 mg/dl (8.4-10.2); Carbon Dioxide 21 mmol/L (22-30); Chloride 104 mmol/L (98-107); Estimated Creatinine Clearance 71 ml/min; Glucose 97 mg/dl (70-99); Potassium 3.3 mmol/L (3.5-5.1); Sodium 131 mmol/L (135-145); eGFR > 60.00
--- NOTE | 2025-03-12 04:19 | PTCARENOTE ---
sys reviewed, inc of stool, gisselle care given,neuro unch
[2025-03-12] MEDS: DEPACON 57.5 MG IV ×3 (05:04→21:53)
[2025-03-12] MEDS: KCL ELIXIR 40 MEQ TUBE (05:04)
[2025-03-12] MEDS: DUONEB 3 ML INH ×2 (07:25→20:01)
[2025-03-12] MEDS: PULMICORT 0.5 MG INH ×2 (07:25→20:01)
[2025-03-12] MEDS: KEPPRA 1000 MG IV ×2 (08:16→19:08)
[2025-03-12] MEDS: VIMPAT 200 MG IV ×2 (08:16→19:09)
[2025-03-12] MEDS: LOPRESSOR 12.5 MG TUBE ×2 (08:17→19:09)
[2025-03-12] MEDS: ELIQUIS 5 MG PO ×2 (08:17→19:09)
[2025-03-12] MEDS: TOPAMAX 200 MG TUBE ×2 (08:17→19:09)
[2025-03-12] MEDS: FLOMAX 0.4 MG TUBE (08:17)
[2025-03-12] MEDS: PACERONE 200 MG TUBE ×2 (08:17→19:09)
[2025-03-12] MEDS: LIPITOR 40 MG TUBE (08:17)
[2025-03-12] MEDS: SODIUM CHLORIDE 1 GRAM TUBE ×2 (08:28→19:09)
[2025-03-12] MEDS: SODIUM BICARBONATE 1150 MEQ IV (09:23)
--- NOTE | 2025-03-12 09:28 | PTCARENOTE ---
Dobhuff tube clogged. Replaced, 65cm L nare. awaiting CXR confirmation. Pt awakes to verbal stimuli. Oriented to name, place and year. Slow to respond. Then all additional questions were answered w/ . Pt drowsy, following some simple commands.
Will monitor closely.
--- NOTE | 2025-03-12 09:44 | W.PN.CARDCBS ---
Today's Communication / Plan
-
A-fib overall remains rate controlled. Will continue amiodarone and metoprolol via tube.
Okay to continue Eliquis as long as no further procedures scheduled.
Back in status epilepticus and prognosis remains very poor. Continue Topamax, Keppra, Vimpat, and prednisone
Impression / Plan
-
PCP Dr. Kathrin Underwood
Cardiology: Dr. Damian Grant, last seen 01/09/2024
Impression:
Admitted with confusion and hyponatremia 02/25/2025
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
Hyponatremia
Recurrence of A-fib with RVR 03/05/2025
Paroxysmal A-fib
Previously not chronically anticoagulated by patient choice
h/o TIA
Hyperlipidemia
h/o Alcohol abuse
Anxiety
Aortic atherosclerosis
Echo 04/11/2023: EF 55 to 60%, stage II diastolic dysfunction, mild MR, mild peak/mean 24/13 mmHg, mild aortic regurgitation
Echo 03/06/25: EF 50%, mild to moderate MR, mild AI, PA pressure 20
Plan:
Back in status epilepticus. Continue Keppra, Vimpat, and Topamax. Now off ketamine.
He remains in atrial fibrillation with a controlled ventricular response.
Continue Eliquis as long as no further procedures scheduled.
Continue amiodarone 200 twice daily via the tube.
Continue metoprolol tartrate 12.5 twice daily for the same.
No evidence of volume overload at this time. Continue Lasix 20 mg every other day.
Sodium at 131 today. Nephrology following. Watch free water intake.
Overall prognosis poor
HPI 03/06/2025:
Patient was initially admitted on 02/25/2025 with confusion and cardiology is now consulted on 03/06/2025 for recurrence of A-fib first seen on 03/05/2025. Patient was initially admitted on 02/25/2025 with confusion and hyponatremia. Patient has a
history of hyponatremia. At time of admission it was unclear if there was an underlying diagnosis of dementia, a close friend reported there had been increasing changes in forgetfulness and memory lapses, but with the patient's brother who he is
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 Regardless patient had MRI of the brain 02/25/2025 that showed no acute changes and patient was slated for discharge to home, but
then had a rapid response on 03/01/2025 for seizure x 3 that was attributed to benzodiazepine withdrawal. Patient was transferred to E yesterday and later in the day was noted to have a change on telemetry and he was back in A-fib.
Progress Note - Bpm Analyst
Subjective
Date of Service: March 12, 2025
Back in status epilepticus and doing poorly. Has feeding tube in place. Remains in rate controlled A-fib.
Objective
Labs:
03/12/25 03:23
Labs
Hgb 12.0 g/dL (13.0-18.0) L 03/12/25 03:23
Hct 34.4 % (39.0-52.0) L 03/12/25 03:23
Plt Count 216 10^3/uL (130-400) 03/12/25 03:23
PT 16.4 Sec (11.4-14.6) H 03/08/25 05:27
INR 1.29 03/08/25 05:27
APTT 24.0 Sec (23.4-35.0) 03/01/25 15:29
Sodium 131 mmol/L (135-145) L 03/12/25 03:23
Potassium 3.3 mmol/L (3.5-5.1) L 03/12/25 03:23
BUN 13 mg/dl (9-20) 03/12/25 03:23
Creatinine 0.8 mg/dL (0.7-1.3) 03/12/25 03:23
Glucose 97 mg/dl (70-99) 03/12/25 03:23
Vital Signs and I&O:
Vital Signs
Temp Pulse Resp BP Pulse Ox
98.7 F 109 16 160/75 99
03/12/25 07:27 03/12/25 08:17 03/12/25 07:28 03/12/25 08:17 03/12/25 07:44
Vital Signs
Temp Pulse Resp BP Pulse Ox
98.7 F 109 16 160/75 99
03/12/25 07:27 03/12/25 08:17 03/12/25 07:28 03/12/25 08:17 03/12/25 07:44
Intake & Output
03/10/25 03/11/25 03/12/25 03/13/25
06:59 06:59 06:59 06:59
Intake Total 2593.0 / 2700.8 2727.2 / 2810.0 2865.9 / 3010.9 455 / 455
Output Total 1335 / 1385 1675 / 1715 2180 / 2330 500 / 500
Balance 1258.0 / 1315.8 1052.2 / 1095.0 685.9 / 680.9 -45 / -45
Physical Exam
Physical Exam
GEN: opens eyes, EEG in place
HEENT: supple, anicteric, mmm
LUNGS: CTA, no wheezes/rales
CV: Irreg, S1/S2, 1/6 syst LSB, no gallop
ABD: soft, BS+, NT/ND
EXT: No edema
NEURO: moving extrermities
SKIN: No rash
--- NOTE | 2025-03-12 09:56 | W.PN.ID1 ---
Date of Service
Date of Service: March 12, 2025
Today's Communication
ID will sign off.
Assessment / Plan
# s/p Seizure 03/01, 03/07 (status)
# Encephalopathy
- Afebrile/normal wbc.
- 03/07 IR attempted LP, only few drops of CSF, enough for cx -> neg
- Repeat brain MRI: no acute change. Moderate diffuse volume loss, severe bilateral leukoaraiosis
- 03/11 Repeat LP. CSF 4 wbc, 61 protein. -> no infectious meningitis
Meningoencephalitis PCR panel negative.
- Serum West Nile Virus IgM neg
serum arbovirus serology panel
serum cryptococcus antigen negative
syphilis negative.
- No indication for abx.
ID will sign off.
# Conditions present on admission
Chronic memory loss
COPD/asthma
Hypertension
TIA
Atrial fibrillation
Chronic hyponatremia
Arthritis
Anxiety/depression
BPH
Bilateral total knee replacements
Hernia repair
Left tympanoplasty
Sinus polypectomy
Chief Complaint
-: Other (Seizure, change in mental status)
Subjective / Review of Systems
No new events.
Vital Signs / Physical Exam
Vital Signs
Vital Signs
Temp Pulse Resp BP Pulse Ox
98.7 F 109 16 160/75 99
03/12/25 07:27 03/12/25 08:17 03/12/25 07:28 03/12/25 08:17 03/12/25 07:44
Physical Exam
Constitutional: Acutely Ill
Cardiovascular: Irregular Rate and S1/S2 (tachy)
Pulmonary: Clear
Gastrointestinal: Soft, Non Tender, Non Distended and Normal Bowel Sounds
Extremities: Negative Edema
Neurological: Oriented (x2) and Other (Drowsy); Negative Meningeal Signs
Objective Data
Lab Data
Lab Results
03/12/25 03:23
PT 16.4 Sec (11.4-14.6) H 03/08/25 05:27
INR 1.29 03/08/25 05:27
APTT 24.0 Sec (23.4-35.0) 03/01/25 15:29
Estimated Creat Clear 71 ml/min 03/12/25 03:23
Total Bilirubin 1.0 mg/dl (0.2-1.3) 03/07/25 14:13
AST 33 U/L (17-59) 03/07/25 14:13
ALT 29 U/L (0-50) 03/07/25 14:13
Alkaline Phosphatase 72 U/L (38-126) 03/07/25 14:13
Most recent labs reviewed.
Micro Results:
03/11/25 13:05 Meningitis/Encephalitis Panel (PCR) - Final
Csf
03/07/25 14:08 CSF Culture - Preliminary
Csf No Growth After 72 Hours
Gram Stain - Final
03/09/25 Brain MRI: Moderate diffuse cerebral and cerebellar volume loss. SEVERE WHITE MATTER LEUKOARAIOSIS in both cerebral hemispheres
03/08/25 AXR: Large amount of fecal material in the sigmoid colon and rectum (possibly fecal impaction in the rectum).
02/27/25 Brain MRI wo: No acute intracranial abnormality noted. Chronic senescent changes.
[2025-03-12] MEDS: SOLU-MEDROL 258 MG IV (09:59)
--- NOTE | 2025-03-12 10:09 | W.PN.NEURO.1 ---
Today's Communication / Plan
-
~1:14 am back in status.
this morning I rx Solumedrol 1g x5 days
continue EEG monitoring - after solumedrol his EEG looks a lot better. Had A seizure 4:22 until 5:02 am, not as bad as what was seen overnight.
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 CT torso.
35' crit examining patient, spot reviewing EEG at bedside for exam correlate, reviewing CSF, medical decision making, documentation, discussing with hospitalist and grain processor.
excluding continuous EEG review time billed separately.
Neuro Assessment/Plan
Assessment
Abrupt onset of worsening confusion
New episode of seizure described as generalized tonic-clonic lasting for approximately 2 minutes before total resolution on 03/07/2025
Exam very fluctuating based on whether or not he is actively seizing.
03/08 his condition worsening, in that today the EEG seizure activity is now spreading to his right hemisphere, this afternoon now in nonconvulsive status epilepticus and he is requiring more meds to get the seizures controlled
03/08 while he was lucid AAOx3 I explained to him my suspicions.
repeat MRI brain 03/09 showing severe chronic senescent changes no explanation for his sz
repeat LP 03/11 CSF WBC 1, RBC 20, glucose 54, protein 61
with his SIADH, being fluid restricted
AEDs Keppra 1000 BID, Vimpat 200 BID, topiramate 200 BID, Depakote 750 q8 at 7a, 3p, 11p, trough 92.8 on 03/09 and 93.7 on 03/12 so he is stable
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
will order CT torso with IV/PO contrast
Subjective/Objective
Subjective Data
Date of Service: March 12, 2025
On EEG ~1:14 am seizure begins, subtle at first and by 1:30 am it is obvious that he is in status epilepticus. Overnight into the morning Stage 1-2 with building up and winding down, and sometimes on EEG it's not entirely clear
Objective Data
Vital Signs
Temp Pulse Resp BP Pulse Ox
37.1 C 109 16 160/75 99
03/12/25 07:27 03/12/25 08:17 03/12/25 07:28 03/12/25 08:17 03/12/25 07:44
Lab Results
03/12/25 03:23
PT 16.4 Sec (11.4-14.6) H 03/08/25 05:27
INR 1.29 03/08/25 05:27
APTT 24.0 Sec (23.4-35.0) 03/01/25 15:29
Sodium 131 mmol/L (135-145) L 03/12/25 03:23
Potassium 3.3 mmol/L (3.5-5.1) L 03/12/25 03:23
BUN 13 mg/dl (9-20) 03/12/25 03:23
Glucose 97 mg/dl (70-99) 03/12/25 03:23
Calcium 8.5 mg/dl (8.4-10.2) 03/12/25 03:23
Phosphorus 4.0 mg/dl (2.5-4.5) 03/03/25 05:56
LDL Cholesterol, Calc 62 mg/dl 02/26/25 07:11
Vitamin B12 690 pg/ml (239-931) 02/26/25 07:11
Ur Buprenorphine Cancelled 02/25/25 20:30
Patient Allergies
No Known Allergies Allergy (Verified 02/25/25 15:16)
Physical Exam
-
AAOx age only, perseverative, following simple commands
all extremities antigravity
[2025-03-12] MEDS: ZESTRIL 20 MG TUBE (10:45)
--- NOTE | 2025-03-12 10:59 | W.PN.NEPH.PH ---
Today's Communication / Plan
-
Discontinue IV bicarbonate
Assessment/Plan
-
Impression:
Acute on chronic euvolemic hyponatremia (126)
Change of mental status
History of depression and anxiety
History of atrial fibrillation
History of hypertension
History of COPD
BPH
Seizure 03/01/25
Plan:
follow BMP
Discontinue IV bicarbonate drip
Sodium 131 decrease free water okay to continue current free water flushes
NG tube in place tolerating tube feed

31 minutes critical care time
-
-
Date of Service: March 12, 2025
CC / HPI / ROS
-
Chief Complaint:
Hyponatremia
History of Present Illness:
Blood pressure controlled
Na stable 138 after smasca 03/07
Seizure on 03/01, no further events
metabolic acidosis worsened 15
Review of Systems:
Nonoliguric
no fevers
Improved responsiveness
Labs
-
Labs:
WBC 8.6 10^3/uL (4.8-10.8) 03/12/25 03:23
RBC 3.88 10^6/uL (4.70-6.10) L 03/12/25 03:23
Hgb 12.0 g/dL (13.0-18.0) L 03/12/25 03:23
Hct 34.4 % (39.0-52.0) L 03/12/25 03:23
Plt Count 216 10^3/uL (130-400) 03/12/25 03:23
eGFR > 60.00 03/12/25 03:23
Phosphorus 4.0 mg/dl (2.5-4.5) 03/03/25 05:56
Albumin 3.7 g/dl (3.5-5.0) 03/07/25 14:13
Physical Exam
-
Vital Signs:
Vital Signs
Temp Pulse Resp BP Pulse Ox
98.7 F 81 16 184/87 99
03/12/25 07:27 03/12/25 10:45 03/12/25 07:28 03/12/25 10:45 03/12/25 07:44
--- NOTE | 2025-03-12 11:26 | PTOTSP ---
Speech Therapy Follow-up:
Pt with acute risk factors of dysphagia including altered mental status with ongoing intermittent seizures, however given improved mentation and performance at bedside, pt appears appropriate for cautious diet initiation of modified diet. Risk of
aspiration increased during periods of lethargy.
Recommend:
1. Cautious diet initiation of puree and thin liquids
2. Medications crushed in puree
3. Strict aspiration precautions: 1:1 supervision and assistance with PO intake
4. Low threshold NPO. d/c oral diet if worsening in status or if pt unable to maintain alertness
5. Would consider keeping alternative means of nutrition in place s/p diet initiation given uncertainty if pt can maintain current RAJWINDER and intermittent seizures with risk for change in function
6. BUSINESS DEVELOPMENT ANALYST to closely follow to monitor tolerance of diet and assess need for further modifications/advancements
--- NOTE | 2025-03-12 11:31 | PTCARENOTE ---
Pt more alert, passed speech eval, diet placed. Dobhuff in place, will keep TF for now. Oneill removed. Loose watery stool, rectal trumpet placed. VSS. BP elevated, Lisinopril started per home med list.
[2025-03-12 12:46] LABS: Blood Urea Nitrogen 13 mg/dl (9-20); Calcium 8.9 mg/dl (8.4-10.2); Carbon Dioxide 22 mmol/L (22-30); Chloride 102 mmol/L (98-107); Estimated Creatinine Clearance 71 ml/min; Glucose 93 mg/dl (70-99); Potassium 3.7 mmol/L (3.5-5.1); Sodium 132 mmol/L (135-145); eGFR > 60.00
--- NOTE | 2025-03-12 13:07 | W.PN.INTV ---
Today's Communication / Plan
Recommendations
- Continue tube feeding
- Resume Lisinopril
Assessment
-
84-year-old male admitted 02/25/2025 with mental status changes, found to have no abnormalities per imaging, mild hyponatremia, then noted to seizure activity 03/01 aborted with Valium, thought to be due to benzodiazepine withdrawal, then found to
have frontocentral nonconvulsive status epilepticus 03/07 initiated on Keppra, Vimpat, now transferred to ICU with ketamine drip due to ongoing intermittent seizures 03/08/2025
Conditions present prior to admission
Questionable history of TIA
Hypertension
COPD/asthma per history
BPH
Chronic constipation
03/12 overview: Current infusions none.. Saturating 100% on room air, current MAP of 108, not requiring any pressor support. Patient more awake, alert and oriented x 2.
Assessment and plan
#1. Status epilepticus
-Transferred to ICU 03/08. Currently on multiple medication including Topamax, valproic acid, Vimpat, Keppra.
-off Ketamine now, more awake and alert
-EEG monitoring in place, no longer having active seizures
-Unclear etiology for underlying seizure disorder. ?Benzodiazepine withdrawl
- R epeat lumbar puncture 03/11, not suggestive of meningitis. 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
#2. Acute encephalopathy, unclear etiology.
-Differential diagnosis includes postictal state, hypoactive delirium, underlying aseptic encephalitis, herpetic encephalitis, autoimmune encephalitis etc.
-Patient appears more awake today and more responsive, oriented times 2. off ketamine.
-Suspect underlying dementia
-Brain MRI unremarkable
-Continue tube feeding
#3. Hyponatremia, ?SIADH
- Improving
-Mild hyponatremia earlier noted unlikely to explain the degree of encephalopathy
#4. h/o Atrial fibrillation
-Had been on amiodarone, beta-jermaine, Eliquis
-Resume Eliquis continue Amiodarone and Metoprolol.
-Cardiology service on case
#5. History of asthma/COPD noted
- Current presentation not suggestive of exacerbation of obstructive airway disease
- Continue scheduled budesonide and as needed DuoNeb
#6. Non-anion gap metabolic acidosis, hyperchloremic.
- Suspect iatrogenic related to normal saline infusion
- Nephrology service on case, IV fluids were switched to sterile water with bicarb, now stopped.
DVT prophylaxis: Resume Eliquis 03/12.
GI prophylaxis: Not indicated at this time
Critical Care time 42 mins -- The patient is admitted for acute critical illness for the treatment of vital organ failure and/or prevention of further life-threatening conditions. Total care includes time spent in review of history, physical exam,
medications, hemodynamic/ventilator parameters, laboratory data, imaging and discussion with house staff, pharmacy, respiratory therapy, observer gravity prospecting, and nursing.
Subjective Dataa
Subjective Data
Date of Service:
Date of Service: March 12, 2025
Subjective:
Comfortably lying in bed, more awake and alert
Review of Systems
Genitourinary: Other (Still not fully oriented, appears comfortable)
Objective Data
Data Reviewed
Vital Signs / I&O / Oxygen:
Vital Signs
Temp Pulse Resp BP Pulse Ox
99 F 71 17 164/80 99
03/12/25 11:20 03/12/25 11:00 03/12/25 11:00 03/12/25 11:00 03/12/25 11:00
Intake and Output
03/11/25 03/12/25 03/13/25
06:59 06:59 06:59
Intake Total 2727.2 / 2810.0 2865.9 / 3010.9 510 / 510
Output Total 1675 / 1715 2180 / 2330 1225 / 1225
Balance 1052.2 / 1095.0 685.9 / 680.9 -715 / -715
SaO2 99
Nasal Cannula flow liters per 2
minute
Physical Exam
General: Comfortable
HEENT: Normocephalic
Cardiovascular: S1-S2
Respiratory: Clear
GI: Non Distended
Neurology: Awake, Alert and Oriented (Oriented times 2)
Skin: Warm
Labs/Micro/Reports
Lab Data
03/12/25 03:23
03/12/25 12:04
Microbiology
03/11/25 13:05 Csf Meningitis/Encephalitis Panel (PCR) - Final
03/07/25 14:08 Csf CSF Culture - Preliminary
No Growth After 72 Hours
03/07/25 14:08 Csf Gram Stain - Final
--- NOTE | 2025-03-12 14:40 | W.PN.HOSP.TC ---
Addendum entered and electronically signed by Akira Guillaume DO 03/13/25 16:26:
Additional diagnosis
Hypokalemia: Repleted
Original Note:
Today's Communication/Plan
-
Assessment / Plan
Assessment / Plan
General: Awake, comfortable
HEENT: NormoCephalic, moist mucous membranes, continuous EEG in place
Respiratory: Clear and Non Labored Respirations
Cardiac: irregular rhythm; heart rate around 75
GI: Soft, Non Tender, Non Distended and Normal Bowel Sounds
Musculoskeletal: No Edema, no deformity
: Oneill in place draining clear yellow urine
Neuro: Awake and alert, confused
Psych: Calm and cooperative
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 However, Bora
who speaks to patient every day states pt came on his own. Per Bora, patient was stating he was unable to find his Xanax prior to coming in.
CT head 02/25/25: No acute intracranial abnormality
MRI 02/27/25: No acute intracranial abnormality noted. Chronic senescent changes.
A/P:
# Seizures
- Presented with acute Anxiety with confusion
- Initially suspect secondary not being able to find Xanax prescription. Dr Penn received information from patient's friend, Bora Pereyra (phone # [phone]) who reports that patient has had increasing memory loss. They speak every day but Bora lives
in the [place].
- Admission MRI brain obtained without acute abnormality, repeat MRI 03/09 shows no abnormalities to explain his seizures, does show severe chronic senescent changes-appreciate neurology guidance
- Patient is not an SSRI candidate 2/2 hyponatremia
- Restarted benzo (AIR ROUTE TRAFFIC CONTROLLER Ativan 1 mg TID), with plan to taper off before discharge as it is felt unsafe for this patient with memory issue to go home (he lives alone) with benzo
- However, later developed seizures confirmed on EEG, now on continuous EEG
- Repeat LP 03/12 without evidence to suggest infection
- Now weaned off ketamine drip and more alert, remains on continuous EEG
- Started on high-dose steroids with Solu-Medrol 1 g daily for possible autoimmune etiology of seizures
- Antiepileptic regimen now with Keppra 1 g IV twice daily, Vimpat 200 mg IV twice daily, valproate 750 mg IV every 8 hours, and Topamax 200 mg via NGT twice daily
- Appreciate neurology guidance
# Memory Loss, possible dementia
patient lives alone.
patient does not have family that lives close by (brother lives in [place] and they are not close).
No driving going forward. He drove himself to the hospital.
Appreciate Psych input
Appreciate neuro input
# Paroxysmal A-fib
Went into A fib
Cont Amiodarone
Added Toprol
Restarted Eliquis 5 mg BID, no further procedures pending
Echo largely unrevealing: EF 50% Compared to a prior study from 04/11/23 The LVEF has decreased from 60% to 50%. The mitral regurgitation is also worsened somewhat and is now in the mild to moderate range.
Card on board
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
urine studies showed SIADH
s/p Samsca PRN per renal
Sodium level stable, today at 132
Fluid restriction, discontinued bicarb drip
Nephrology consult appreciated
# History of reported TIA
# HTN
resumed AIR ROUTE TRAFFIC CONTROLLER lisinopril 20 mg daily
Monitor BP
# COPD no acute exacerbation
# Former smoker
Symbicort
# Asthma no acute exacerbation
# BPH
Flomax
# Severe constipation
cont bowel regimen Miralax and Senokot-S BID ATC when tolerating p.o.
DVT prophylaxis: Eliquis
Full code
Dispo: pt declined memory care unit, wants to go home. 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
CC time 57 min
Anticipated Discharge: > 48 hours
Subjective/Interval History
-
Date of Service: March 12, 2025
Patient was seen and examined at bedside this morning. He is much more alert now on that ketamine drip has been discontinued. Still with some confusion.
Objective Data
-
Labs:
Laboratory Results
03/12/25 03/12/25
03:23 12:04
WBC 8.6
Hgb 12.0 L
Hct 34.4 L
Plt Count 216
Sodium 131 L 132 L
Potassium 3.3 L 3.7
Chloride 104 102
Carbon Dioxide 21 L 22
BUN 13 13
Creatinine 0.8 0.8
Glucose 97 93
Calcium 8.5 8.9
Vital Signs:
Vital Signs
Temp Pulse Resp BP Pulse Ox
99 F 72 16 108/65 100
03/12/25 11:20 03/12/25 13:00 03/12/25 13:00 03/12/25 13:00 03/12/25 13:00
I&O
03/11/25 03/12/25 03/13/25
06:59 06:59 06:59
Intake Total 2727.2 / 2810.0 2865.9 / 3010.9 815 / 815
Output Total 1675 / 1715 2180 / 2330 1225 / 1225
Balance 1052.2 / 1095.0 685.9 / 680.9 -410 / -410
Review of Systems
-
Unable to obtain full review of systems at this time due to: Acuity
Physical Exam
-
Neuro: Awake and Other (Confused)
--- NOTE | 2025-03-12 15:15 | W.PN.UPDATE ---
Update Note
Progress Note Update
reviewed chart and spoke with nursing. psych will sign off at present. please let us know if we need to return.
--- NOTE | 2025-03-12 16:18 | CM ---
Tube feeds, guerra, IV/Vimpat/Keppra and Valproate. Discharge POC: TBD. Need therapy evals.
--- NOTE | 2025-03-12 16:29 | CM ---
OUT OF SEQUENCE FOR 03/10/25. IV/Vimpat and Valproate, guerra, somnolent, responds to noxious stimuli. Discharge POC: TBD.
--- NOTE | 2025-03-12 17:35 | PTCARENOTE ---
Pt bladder scanned for 400ml, straight cathed for 375ml at this time. Mentation fluctuates throughout the day, w/ periods of somnolence followed by periods of alertness. VSS.
--- NOTE | 2025-03-12 21:35 | PTCARENOTE ---
Pt received start of shift, HR Afib on telemetry. Pt drowsy but awakens to voice. Oriented to name, place, and year. Stutters occasionally when it comes to the year. Occasional confused conversation. Pupils +2/+3 b/l, equal + reactive. Hard of
hearing. Ate 100% of dinner with assistance. TF off 1929. Liquid brown stool - rectal trumpet in place. Radha care completed. B/l Mitts on.
[2025-03-12] MEDS: MELATONIN 5 MG TUBE (21:54)
[2025-03-13] VITALS (22 sets, daily range): BP systolic 104–156; BP diastolic 62–112; BMI 25.8
[2025-03-13 04:41] LABS: Hematocrit 35.4 % (39.0-52.0); Hemoglobin 12.6 g/dL (13.0-18.0); Mean Corp Hgb Conc. 35.6 g/dL (33.0-37.0); Mean Corpuscular Volume 87.4 fL (80.0-94.0); Platelet Count 253 10^3/uL (130-400); Red Cell Dist. Width 13.3 % (11.5-14.5)
[2025-03-13 05:08] LABS: Blood Urea Nitrogen 21 mg/dl (9-20); Calcium 9.3 mg/dl (8.4-10.2); Carbon Dioxide 19 mmol/L (22-30); Chloride 106 mmol/L (98-107); Estimated Creatinine Clearance 71 ml/min; Glucose 143 mg/dl (70-99); Potassium 3.7 mmol/L (3.5-5.1); Sodium 132 mmol/L (135-145); eGFR > 60.00
[2025-03-13] MEDS: DEPACON 57.5 MG IV ×3 (05:31→22:37)
[2025-03-13] MEDS: PULMICORT 0.5 MG INH ×2 (07:15→19:25)
[2025-03-13] MEDS: DUONEB 3 ML INH ×2 (07:15→19:25)
[2025-03-13] MEDS: PACERONE 200 MG TUBE ×2 (08:15→19:38)
[2025-03-13] MEDS: TOPAMAX 200 MG TUBE ×2 (08:15→19:38)
[2025-03-13] MEDS: LOPRESSOR 12.5 MG TUBE ×2 (08:15→19:38)
[2025-03-13] MEDS: ELIQUIS 5 MG PO ×2 (08:15→19:38)
[2025-03-13] MEDS: FLOMAX 0.4 MG TUBE (08:15)
[2025-03-13] MEDS: SODIUM CHLORIDE 1 GRAM TUBE ×2 (08:15→19:38)
[2025-03-13] MEDS: KEPPRA 1000 MG IV ×2 (08:16→19:37)
[2025-03-13] MEDS: ZESTRIL 20 MG TUBE (08:16)
[2025-03-13] MEDS: LIPITOR 40 MG TUBE (08:17)
[2025-03-13] MEDS: VIMPAT 200 MG IV ×2 (08:18→19:37)
--- NOTE | 2025-03-13 10:00 | PTCARENOTE ---
pt drowsy and lethargic this am , opens eyes with no vocal response , pt on EEG and as per neurologist pt was in status from 36 to 934, he was awake and responsive at 10:00 able to recall he is in hospital and aware of self , his small bore
feeding tube was blocked and he had a new one placed in the R nares , he has remained NPO for a abdominal and pelvic CT scan
--- NOTE | 2025-03-13 10:09 | W.PN.NEURO.1 ---
Today's Communication / Plan
-
after CT torso if no cancer will EEG and Ketamine 1 more time.
35' crit examining patient, bedside eeg review, discussing and complex medical decision making with software tools engineer and hospitalist, and management of status epilepticus
excluding official EEG review time
Neuro Assessment/Plan
Assessment
Abrupt onset of worsening confusion
New episode of seizure described as generalized tonic-clonic lasting for approximately 2 minutes before total resolution on 03/07/2025
Exam very fluctuating based on whether or not he is actively seizing.
03/08 his condition worsening, in that today the EEG seizure activity is now spreading to his right hemisphere, this afternoon now in nonconvulsive status epilepticus and he is requiring more meds to get the seizures controlled
03/08 while he was lucid AAOx3 I explained to him my suspicions.
repeat MRI brain 03/09 showing severe chronic senescent changes no explanation for his sz
repeat LP 03/11 CSF WBC 1, RBC 20, glucose 54, protein 61
with his SIADH, being fluid restricted
AEDs Keppra 1000 BID, Vimpat 200 BID, topiramate 200 BID, Depakote 750 q8 at 7a, 3p, 11p, trough 92.8 on 03/09 and 93.7 on 03/12 so he is stable
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
will order CT torso with IV/PO contrast
03/12 8:36 pm went back in status epilepticus, broke 03/13 at 9:35 am with morning meds
after CT torso if no cancer will EEG and Ketamine 1 more time.
Subjective/Objective
Subjective Data
Date of Service: March 13, 2025
overnight on EEG, 8:36 pm he went into stage 2 status epilepticus until 9:35 am.
I saw him 9:45 am, he was not active seizing, AOx1 I told him he was having seizures most of the night and he said, 'thats not good!'
Objective Data
Vital Signs
Temp Pulse Resp BP Pulse Ox
36.6 C 84 18 111/65 99
03/13/25 08:00 03/13/25 08:16 03/13/25 07:17 03/13/25 08:16 03/13/25 07:17
Lab Results
03/13/25 04:16
03/13/25 04:16
PT 16.4 Sec (11.4-14.6) H 03/08/25 05:27
INR 1.29 03/08/25 05:27
APTT 24.0 Sec (23.4-35.0) 03/01/25 15:29
Sodium 132 mmol/L (135-145) L 03/13/25 04:16
Potassium 3.7 mmol/L (3.5-5.1) 03/13/25 04:16
BUN 21 mg/dl (9-20) H 03/13/25 04:16
Glucose 143 mg/dl (70-99) H 03/13/25 04:16
Calcium 9.3 mg/dl (8.4-10.2) 03/13/25 04:16
Phosphorus 4.0 mg/dl (2.5-4.5) 03/03/25 05:56
LDL Cholesterol, Calc 62 mg/dl 02/26/25 07:11
Vitamin B12 690 pg/ml (239-931) 02/26/25 07:11
Ur Buprenorphine Cancelled 02/25/25 20:30
Patient Allergies
No Known Allergies Allergy (Verified 02/25/25 15:16)
Physical Exam
-
AAOx age only, perseverative. on bedside EEG review not actively seizing
MADDOX antigravity
--- NOTE | 2025-03-13 10:27 | EEGC.RPT ---
Continuous EEG Report
Recording
Start Date of Data Reviewed: 03/12/25
Start Time of Data Reviewed: :00
End Date of Data Reviewed: 03/13/25
End Time of Data Reviewed: :00
Report
Clinical Background:�84 year old man with seizures
Introduction: continuation of ICU EEG was done using [employer] 10-20 electrode placement protocol.
Meds: include Keppra, Vimpat, valproate, Topamax
Background: continuous generalized low amplitude delta activity with some overriding beta
Sleep: some spindles are seen
Focal/epileptiform: No interictal epileptiform discharges were seen
Seizure: 03/12 8:36 pm he went into stage 2 status epilepticus consisting of builds up to high amplitude 1.5-2 hz spike/wave or rhythmic delta, and winds down but does not stop)
Impression: Stage 2 status epilepticus
[2025-03-13] MEDS: SOLU-MEDROL 258 MG IV (10:28)
[2025-03-13] MEDS: OMNIPAQUE 50 ML PO (10:32)
--- NOTE | 2025-03-13 10:54 | W.PN.NEPH.PH ---
Today's Communication / Plan
-
Continue free water restriction with tube feeds
Assessment/Plan
-
Impression:
Acute on chronic euvolemic hyponatremia (126)
Change of mental status
History of depression and anxiety
History of atrial fibrillation
History of hypertension
History of COPD
BPH
Seizure 03/01/25 started and continue to recur despite treatment
Plan:
follow BMP
Sodium 131 decrease free water okay to continue current free water flushes
NG tube in place tolerating tube feed
Continues to have seizures
Repeat LP 03/11 nondiagnostic

31 minutes critical care time
-
-
Date of Service: March 13, 2025
CC / HPI / ROS
-
Chief Complaint:
Hyponatremia
History of Present Illness:
Blood pressure controlled
Na stable 138 after smasca 03/07
Seizure on 03/01, no further events
metabolic acidosis worsened 15
Review of Systems:
Nonoliguric
no fevers
Unresponsive
Labs
-
Labs:
WBC 9.3 10^3/uL (4.8-10.8) 03/13/25 04:16
RBC 4.05 10^6/uL (4.70-6.10) L 03/13/25 04:16
Hgb 12.6 g/dL (13.0-18.0) L 03/13/25 04:16
Hct 35.4 % (39.0-52.0) L 03/13/25 04:16
Plt Count 253 10^3/uL (130-400) 03/13/25 04:16
Sodium 132 mmol/L (135-145) L 03/13/25 04:16
Potassium 3.7 mmol/L (3.5-5.1) 03/13/25 04:16
Chloride 106 mmol/L (98-107) 03/13/25 04:16
Carbon Dioxide 19 mmol/L (22-30) L 03/13/25 04:16
BUN 21 mg/dl (9-20) H 03/13/25 04:16
Creatinine 0.8 mg/dL (0.7-1.3) 03/13/25 04:16
eGFR > 60.00 03/13/25 04:16
Glucose 143 mg/dl (70-99) H 03/13/25 04:16
Calcium 9.3 mg/dl (8.4-10.2) 03/13/25 04:16
Phosphorus 4.0 mg/dl (2.5-4.5) 03/03/25 05:56
Albumin 3.7 g/dl (3.5-5.0) 03/07/25 14:13
Physical Exam
-
Vital Signs:
Vital Signs
Temp Pulse Resp BP Pulse Ox
97.8 F 84 18 111/65 99
03/13/25 08:00 03/13/25 08:16 03/13/25 07:17 03/13/25 08:16 03/13/25 07:17
--- NOTE | 2025-03-13 12:33 | W.PN.INTV ---
Today's Communication / Plan
Recommendations
- Await dimas CT
- Continue tube feeding
Assessment
-
84-year-old male admitted 02/25/2025 with mental status changes, found to have no abnormalities per imaging, mild hyponatremia, then noted to seizure activity 03/01 aborted with Valium, thought to be due to benzodiazepine withdrawal, then found to
have frontocentral nonconvulsive status epilepticus 03/07 initiated on Keppra, Vimpat, now transferred to ICU with ketamine drip due to ongoing intermittent seizures 03/08/2025
Conditions present prior to admission
Questionable history of TIA
Hypertension
COPD/asthma per history
BPH
Chronic constipation
03/13 overview: Current infusions none.. Saturating 98% on room air, current MAP of 83, not requiring any pressor support. Patient awake, alert and oriented x 1.
Assessment and plan
#1. Status epilepticus, resistant
-Transferred to ICU 03/08. Currently on multiple medication including Topamax, valproic acid, Vimpat, Keppra.
-Off Ketamine now, more awake and alert, oriented x 1
-EEG monitoring in place, intermittently having episodes of status epilepticus
-Unclear etiology for underlying seizure disorder. ? Autoimmune encephalitis
-Repeat lumbar puncture 03/11, not suggestive of meningitis. 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
#2. Acute encephalopathy, unclear etiology.
-Differential diagnosis includes postictal state, hypoactive delirium, underlying aseptic encephalitis, herpetic encephalitis, autoimmune encephalitis etc.
-Patient appears more awake and alert today, oriented x 1, off ketamine.
-Brain MRI unremarkable
-Continue tube feeding
-Concern for paraneoplastic syndrome per neurology service, patient going for CT chest abdomen pelvis to evaluate for any concomitant malignancy.
#3. Hyponatremia, ?SIADH
- Improved
- Mild hyponatremia earlier noted unlikely to explain the degree of encephalopathy
#4. h/o Atrial fibrillation
-Had been on amiodarone, beta-jermaine, Eliquis
-Resumed Eliquis continue Amiodarone and Metoprolol.
-Cardiology service on case
#5. History of asthma/COPD noted
- Current presentation not suggestive of exacerbation of obstructive airway disease
- Continue scheduled budesonide and as needed DuoNeb
#6. Non-anion gap metabolic acidosis, hyperchloremic.
- Suspect iatrogenic related to normal saline infusion
- Nephrology service on case, IV fluids were switched to sterile water with bicarb, now stopped. Improved.
DVT prophylaxis: Resume Eliquis 03/12.
GI prophylaxis: Not indicated at this time
Critical Care time 38 mins -- The patient is admitted for acute critical illness for the treatment of vital organ failure and/or prevention of further life-threatening conditions. Total care includes time spent in review of history, physical exam,
medications, hemodynamic/ventilator parameters, laboratory data, imaging and discussion with house staff, pharmacy, respiratory therapy, field operations farm manager, and nursing.
Discussed with neurology service
Subjective Dataa
Subjective Data
Date of Service:
Date of Service: March 13, 2025
Subjective:
Comfortably lying in bed, in no acute distress, awake, alert, oriented x 1
Review of Systems
General: Other (Still not fully oriented for a thorough review of system, overall appears comfortable)
Objective Data
Data Reviewed
Vital Signs / I&O / Oxygen:
Vital Signs
Temp Pulse Resp BP Pulse Ox
97.8 F 85 22 156/90 100
03/13/25 08:00 03/13/25 12:00 03/13/25 12:00 03/13/25 12:00 03/13/25 12:00
Intake and Output
03/12/25 03/13/25 03/14/25
06:59 06:59 06:59
Intake Total 2865.9 / 3010.9 2004 0 / 0
Output Total 2180 / 2330 2115 / 2115 500 / 500
Balance 685.9 / 680.9 -110 / -110 -500 / -500
SaO2 100
Nasal Cannula flow liters per 2
minute
Physical Exam
General: Comfortable
HEENT: Normocephalic
Cardiovascular: S1-S2
Respiratory: Clear
GI: Non Distended
Neurology: Awake, Alert and Oriented (Oriented times 1)
Skin: Warm
Labs/Micro/Reports
Lab Data
03/13/25 04:16
03/13/25 04:16
Microbiology
03/07/25 14:08 Csf CSF Culture - Final
No Growth After 5 Days - Final Report
03/07/25 14:08 Csf Gram Stain - Final
03/11/25 13:05 Csf Meningitis/Encephalitis Panel (PCR) - Final
--- NOTE | 2025-03-13 12:33 | PTCARENOTE ---
no change in assessments , pt brothgeorges Omalley updated via phone
--- NOTE | 2025-03-13 12:57 | W.PN.CARDCBS ---
Today's Communication / Plan
-
Continue current cardiac regimen
If improvement continues, cardioversion as outpatient following discharge
Impression / Plan
-
PCP Dr. Kathrin Underwood
Cardiology: Dr. KORI Grant, last seen 01/09/2024
Impression:
Admitted with confusion and hyponatremia 02/25/2025
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
Hyponatremia
Recurrence of A-fib with RVR 03/05/2025
Paroxysmal A-fib
Previously not chronically anticoagulated by patient choice
h/o TIA
Hyperlipidemia
h/o Alcohol abuse
Anxiety
Aortic atherosclerosis
Echo 04/11/2023: EF 55 to 60%, stage II diastolic dysfunction, mild MR, mild peak/mean 24/13 mmHg, mild aortic regurgitation
Echo 03/06/25: EF 50%, mild to moderate MR, mild AI, PA pressure 20
Plan:
He is awake and conversant, offering no complaints, somewhat lethargic and confused.
Heart rate is somewhat higher now that he has regained consciousness, blood pressure is adequate. Heart rate is still reasonably controlled.
He is anticoagulated.
Continue Eliquis and metoprolol.
If he continues to improve, we can consider whether or not to reestablish sinus rhythm here in the hospital. It may be best to continue with rate control and anticoagulation and arrange for outpatient cardioversion presuming he continues to recover
neurologically.
Overall very encouraging that he is now awake.
HPI 03/06/2025:
Patient was initially admitted on 02/25/2025 with confusion and cardiology is now consulted on 03/06/2025 for recurrence of A-fib first seen on 03/05/2025. Patient was initially admitted on 02/25/2025 with confusion and hyponatremia. Patient has a
history of hyponatremia. At time of admission it was unclear if there was an underlying diagnosis of dementia, a close friend reported there had been increasing changes in forgetfulness and memory lapses, but with the patient's brother who he is
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 Regardless patient had MRI of the brain 02/25/2025 that showed no acute changes and patient was slated for discharge to home, but
then had a rapid response on 03/01/2025 for seizure x 3 that was attributed to benzodiazepine withdrawal. Patient was transferred to [facility] yesterday and later in the day was noted to have a change on telemetry and he was back in [facility].
Progress Note - Oscillograph Technician
Subjective
Date of Service: March 13, 2025:
Still very sedated
Medications: Furosemide 20 mg every 48 hours, apixaban 5 mg twice daily, Senokot, MiraLAX, Keppra IV, Vimpat IV, DuoNebs, Pulmicort, valproic sodium IV, amiodarone 200 mg twice daily, atorvastatin 40 mg a day, melatonin, Topamax, med fold
prednisone, lisinopril 20 mg a day metoprolol 12.5 mg twice daily
156/90, pulse 85, respiratory rate 22, afebrile, sats are 100%, weight is 79.2 kg, up 1.2 kg, saturations are 100% on room air, he is conversant, lungs are clear, regular rate and rhythm without obvious murmurs, abdomen benign extremities without
clubbing cyanosis or edema
Hemoglobin 12.6, white count 9.3, sodium 132, potassium 3.7, BUN and creatinine are 21 and 0.86
Chest x-ray yesterday: Cardiomegaly, no active disease, possible infiltrate right base
Objective
Labs:
03/13/25 04:16
03/13/25 04:16
Labs
Hgb 12.6 g/dL (13.0-18.0) L 03/13/25 04:16
Hct 35.4 % (39.0-52.0) L 03/13/25 04:16
Plt Count 253 10^3/uL (130-400) 03/13/25 04:16
PT 16.4 Sec (11.4-14.6) H 03/08/25 05:27
INR 1.29 03/08/25 05:27
APTT 24.0 Sec (23.4-35.0) 03/01/25 15:29
Sodium 132 mmol/L (135-145) L 03/13/25 04:16
Potassium 3.7 mmol/L (3.5-5.1) 03/13/25 04:16
BUN 21 mg/dl (9-20) H 03/13/25 04:16
Creatinine 0.8 mg/dL (0.7-1.3) 03/13/25 04:16
Glucose 143 mg/dl (70-99) H 03/13/25 04:16
Vital Signs and I&O:
Vital Signs
Temp Pulse Resp BP Pulse Ox
36.4 C 85 22 156/90 100
03/13/25 12:00 03/13/25 12:00 03/13/25 12:00 03/13/25 12:00 03/13/25 12:00
Vital Signs
Temp Pulse Resp BP Pulse Ox
36.4 C 85 22 156/90 100
03/13/25 12:00 03/13/25 12:00 03/13/25 12:00 03/13/25 12:00 03/13/25 12:00
Intake & Output
03/11/25 03/12/25 03/13/25 03/14/25
07:59 07:59 07:59 07:59
Intake Total 2702.2 / 2785.0 2928.1 / 3138.1 1859 / 1859 0 / 0
Output Total 166 / 1865 2290 / 2440 1965 / 1965 500 / 500
Balance 1037.2 / 920.0 638.1 / 698.1 -105 / -105 -500 / -500
Physical Exam
Physical Exam
See above
--- NOTE | 2025-03-13 14:46 | CM ---
Continuous EEG showed status for 59 minutes this am. NPO, TF, IV/Vimpat, Keppra and Steroids. Discharge POC: TBD.
--- NOTE | 2025-03-13 15:15 | PTOTSP ---
Speech Language Pathology
Pt seen for dysphagia tx. Pt pleasant with some confused conversation. Perseverative throughout session. Pt awake upon arrival. Seen with lunch tray of pureed solids/thin liquids. Also trialed regular solids. Adequate mastication, bolus
formation, and A-P transit with no significant oral residue. No overt signs of aspiration with clear vocal quality.
Recommend:
(1) Upgrade to regular solids/thin liquids
(2) Aspiration precautions: feed only when alert, slow rate, sit upright
(3) Meds as tolerated
(4) WILDLIFE TECHNICIAN to continue to follow
--- NOTE | 2025-03-13 15:37 | W.PN.HOSP.TC ---
Today's Communication/Plan
-
Assessment / Plan
Assessment / Plan
General: Awake, comfortable
HEENT: NormoCephalic, moist mucous membranes, continuous EEG in place
Respiratory: Clear and Non Labored Respirations
Cardiac: irregular rhythm; heart rate around 85
GI: Soft, Non Tender, Non Distended and Normal Bowel Sounds
Musculoskeletal: No Edema, no deformity
: Oneill in place draining clear yellow urine
Neuro: Awake and alert, confused, extremely hard of hearing
Psych: Calm and cooperative
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 However, Bora
who speaks to patient every day states pt came on his own. Per Bora, patient was stating he was unable to find his Xanax prior to coming in.
CT head 02/25/25: No acute intracranial abnormality
MRI 02/27/25: No acute intracranial abnormality noted. Chronic senescent changes.
A/P:
# Seizures
- Presented with acute Anxiety with confusion
- Initially suspect secondary not being able to find Xanax prescription. Dr Penn received information from patient's friend, Bora Pereyra (phone # [phone]) who reports that patient has had increasing memory loss. They speak every day but Bora lives
in the [place].
- Admission MRI brain obtained without acute abnormality, repeat MRI 03/09 shows no abnormalities to explain his seizures, does show severe chronic senescent changes-appreciate neurology guidance
- Patient is not an SSRI candidate 2/2 hyponatremia
- Restarted benzo (CATERING MANAGER Ativan 1 mg TID), with plan to taper off before discharge as it is felt unsafe for this patient with memory issue to go home (he lives alone) with benzo
- However, later developed seizures confirmed on EEG, now on continuous EEG
- Repeat LP 03/12 without evidence to suggest infection but did have elevated protein
- Now more alert after being weaned off ketamine drip, however continuous EEG still showing intermittent epileptiform activity so ketamine drip being restarted
- Started on high-dose steroids with Solu-Medrol 1 g daily for possible autoimmune etiology of seizures
- Antiepileptic regimen now with Keppra 1 g IV twice daily, Vimpat 200 mg IV twice daily, valproate 750 mg IV every 8 hours, and Topamax 200 mg via NGT twice daily
- Appreciate neurology guidance
- Have discussed status with patient's brother, Shahram; will continue to keep Shahram updated and will potentially need to reevaluate goals of care in the near future
# Memory Loss, possible dementia
patient lives alone.
patient does not have family that lives close by (brother lives in [place] and they are not close).
No driving going forward. He drove himself to the hospital.
Appreciate Psych input
Appreciate neuro input
# Paroxysmal A-fib
Went into A fib
Cont Amiodarone
Added Toprol
Restarted Eliquis 5 mg BID, no further procedures pending
Echo largely unrevealing: EF 50% Compared to a prior study from 04/11/23 The LVEF has decreased from 60% to 50%. The mitral regurgitation is also worsened somewhat and is now in the mild to moderate range.
Cardiology following, if no improvement will follow-up outpatient for cardioversion once otherwise medically stable if still in line with goals of care
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
urine studies showed SIADH
s/p Samsca PRN per renal
Sodium level stable, today at 132
Fluid restriction, discontinued bicarb drip
Nephrology consult appreciated
# History of reported TIA
# HTN
resumed CATERING MANAGER lisinopril 20 mg daily
Monitor BP
# COPD no acute exacerbation
# Former smoker
Symbicort
# Asthma no acute exacerbation
# BPH
Flomax
# Severe constipation
cont bowel regimen Miralax and Senokot-S BID ATC when tolerating p.o.
DVT prophylaxis: Eliquis
Full code
Dispo: pt declined memory care unit, wants to go home. 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
CC time 55 min
Anticipated Discharge: > 48 hours
Subjective/Interval History
-
Date of Service: March 13, 2025
Patient was seen and examined at bedside this morning. Awake but hard of hearing and confused. Remains on continuous EEG. Still having intermittent detectable epileptic activity. Restarting ketamine drip.
Objective Data
-
Labs:
Laboratory Results
03/13/25
04:16
WBC 9.3
Hgb 12.6 L
Hct 35.4 L
Plt Count 253
Sodium 132 L
Potassium 3.7
Chloride 106
Carbon Dioxide 19 L
BUN 21 H
Creatinine 0.8
Glucose 143 H
Calcium 9.3
Vital Signs:
Vital Signs
Temp Pulse Resp BP Pulse Ox
97.5 F 85 22 156/90 100
03/13/25 12:00 03/13/25 12:00 03/13/25 12:00 03/13/25 12:00 03/13/25 12:00
I&O
03/12/25 03/13/25 03/14/25
06:59 06:59 06:59
Intake Total 2865.9 / 3010.9 2004 0 / 0
Output Total 2180 / 2330 2115 / 2115 500 / 500
Balance 685.9 / 680.9 -110 / -110 -500 / -500
Review of Systems
-
Unable to obtain full review of systems at this time due to: Acuity
Physical Exam
-
General: No Apparent Distress and Appears Chronically Ill
--- NOTE | 2025-03-13 15:48 | PN.CDI ---
CDI
- -
CDI:
Physician Documentation Request
Admit Date: 02/26/25 00:08
Dear Doctor Markell,
Patient admitted for seizures.
03/12 Potassium level: 3.3
03/12 Potassium chloride 40 meq tube administered
Based on the above, could you clarify in the progress notes, the appropriate diagnosis, if significant, that supports the above abnormalities and additional evaluation, monitoring and/or treatment rendered:
Hypokalemia
Abnormal lab value insignificant
Other
Use of terms such as suspected, likely, concern for, or probable (associated with a specific diagnosis that is being evaluated, monitored, or treated as if it exists) are acceptable and can be coded in the inpatient setting, when documented at the
time of discharge.
Thank you,
Nori Adamson RN, BSN
CDI Specialist
Available via [place] text
Please use your independent medical judgment in providing your response.
[2025-03-13] MEDS: KETAMINE HCL 50 MG IV ×2 (16:09→23:59)
--- NOTE | 2025-03-13 20:00 | PTCARENOTE ---
Pt received start of shift, HR Afib on telemetry. Pt drowsy/lethargic but awakens to voice. Oriented to name, place, and year. Occasional confused conversation. Pupils +2/+3 b/l, equal + reactive. Hard of hearing. Liquid brown stool - rectal trumpet
in place. Radha care completed. B/l Mitts on. TF Jevity 1.5.
[2025-03-13] MEDS: MELATONIN 5 MG TUBE (22:36)
[2025-03-14] VITALS (17 sets, daily range): BP systolic 97–166; BP diastolic 60–112; BMI 25.8
--- NOTE | 2025-03-14 00:30 | PTCARENOTE ---
Pt retaining urine - straight cath
[2025-03-14 04:25] LABS: Hematocrit 38.3 % (39.0-52.0); Hemoglobin 13.1 g/dL (13.0-18.0); Mean Corp Hgb Conc. 34.2 g/dL (33.0-37.0); Mean Corpuscular Volume 89.3 fL (80.0-94.0); Platelet Count 245 10^3/uL (130-400); Red Cell Dist. Width 14.0 % (11.5-14.5)
[2025-03-14 04:36] LABS: Blood Urea Nitrogen 22 mg/dl (9-20); Calcium 9.6 mg/dl (8.4-10.2); Carbon Dioxide 19 mmol/L (22-30); Chloride 107 mmol/L (98-107); Estimated Creatinine Clearance 71 ml/min; Glucose 182 mg/dl (70-99); Magnesium 2.4 mg/dl (1.6-2.3); Potassium 3.6 mmol/L (3.5-5.1); Sodium 133 mmol/L (135-145); eGFR > 60.00
[2025-03-14] MEDS: KCL ELIXIR 20 MEQ TUBE (05:17)
[2025-03-14] MEDS: DEPACON 57.5 MG IV ×2 (05:18→13:45)
--- NOTE | 2025-03-14 07:10 | W.PN.INTV ---
Today's Communication / Plan
Recommendations
Given refractory nature of status, consideration for transfer to tertiary center for full neuro ICU management
Continue AEDs as able, IV versed for acute issues
Maintained on EEG
Neuro following
Defer to team for transfer discussions w/ family
Assessment
-
84-year-old male admitted 02/25/2025 with mental status changes, found to have no abnormalities per imaging, mild hyponatremia, then noted to seizure activity 03/01 aborted with Valium, thought to be due to benzodiazepine withdrawal, then found to
have frontocentral nonconvulsive status epilepticus 03/07 initiated on Keppra, Vimpat, now transferred to ICU with ketamine drip due to ongoing intermittent seizures 03/08/2025
Refractory status epilepticus
Acute encephalopathy, unclear etiology.
Hyponatremia, ?SIADH
Non-anion gap metabolic acidosis, hyperchloremic.
Conditions present prior to admission
Questionable history of TIA
Hypertension
COPD/asthma per history
BPH
Chronic constipation
Afib
Plan
Status epilepticus, resistant
Transferred to ICU 03/08. Currently on multiple medication including Topamax, valproic acid, Vimpat, Keppra.
Off Ketamine now, more awake and alert, oriented x [address], intermittently having episodes of status epilepticus
Unclear etiology for underlying seizure disorder. ? Autoimmune encephalitis
Repeat lumbar puncture 03/11, not suggestive of meningitis. 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
Brain MRI unremarkable
Neuro following, given difficulty with control, consider transfer to tertiary center
Not on pressors
h/o Atrial fibrillation, had been on amiodarone, beta-jermaine, Eliquis
Resumed Eliquis continue Amiodarone and Metoprolol.
Cardiology service on case
DHT, Continue tube feeding
Aspiration precautions
Hyponatremia, ?SIADH
Improved
Mild hyponatremia earlier noted unlikely to explain the degree of encephalopathy
Renal function normal
Non-anion gap metabolic acidosis, hyperchloremic.
Suspect iatrogenic related to normal saline infusion
Nephrology service on case, IV fluids were switched to sterile water with bicarb, now stopped. Improved.
History of asthma/COPD noted
Current presentation not suggestive of exacerbation of obstructive airway disease
Continue scheduled budesonide and as needed DuoNeb
Currently stable on RA
DVT prophylaxis: Resume Eliquis 03/12.
GI prophylaxis: Not indicated at this time
Critical Care time 31 mins -- The patient is admitted for acute critical illness for the treatment of vital organ failure and/or prevention of further life-threatening conditions. Total care includes time spent in review of history, physical exam,
medications, hemodynamic/ventilator parameters, laboratory data, imaging and discussion with house staff, pharmacy, respiratory therapy, dental assistant, and nursing.
Discussed with neurology service
Subjective Dataa
Subjective Data
Date of Service:
Date of Service: March 14, 2025
Chief Complaint: Garage Manager Follow Up
Subjective:
Remains lethargic on EEG
Otherwise not on pressors, stable
Objective Data
Data Reviewed
Vital Signs / I&O / Oxygen:
Vital Signs
Temp Pulse Resp BP Pulse Ox
97.1 F 82 14 158/97 99
03/14/25 03:10 03/14/25 06:00 03/14/25 06:00 03/14/25 06:00 03/14/25 06:00
Intake and Output
03/13/25 03/14/25 03/15/25
06:59 06:59 06:59
Intake Total 2004 816.0 / 816.0
Output Total 2114 1425 / 1425
Balance -110 / -110 -609.0 / -609.0
SaO2 99
Nasal Cannula flow liters per 2
minute
Physical Exam
General: Comfortable and Poor Appetite
HEENT: Normocephalic, Anicteric and Moist Mucous Membranes
Cardiovascular: S1-S2 and Regular Rhythm
Respiratory: Clear and Non-Labored Respirations
GI: Soft, Non Distended and Non Tender
Neurology: Awake, Alert and Lethargic
Skin: Warm, Dry and Good Color
Labs/Micro/Reports
Lab Data
03/14/25 04:04
03/14/25 04:04
Microbiology
03/07/25 14:08 Csf CSF Culture - Final
No Growth After 5 Days - Final Report
03/07/25 14:08 Csf Gram Stain - Final
03/11/25 13:05 Csf Meningitis/Encephalitis Panel (PCR) - Final
[2025-03-14] MEDS: DUONEB 3 ML INH (07:32)
[2025-03-14] MEDS: PULMICORT 0.5 MG INH (07:32)
[2025-03-14] MEDS: KEPPRA 1000 MG IV (07:58)
[2025-03-14] MEDS: VIMPAT 200 MG IV (07:58)
[2025-03-14] MEDS: LOPRESSOR 12.5 MG TUBE (07:59)
[2025-03-14] MEDS: TOPAMAX 200 MG TUBE (08:00)
[2025-03-14] MEDS: FLOMAX 0.4 MG TUBE (08:00)
[2025-03-14] MEDS: SODIUM CHLORIDE 1 GRAM TUBE (08:00)
[2025-03-14] MEDS: LIPITOR 40 MG TUBE (08:00)
[2025-03-14] MEDS: ZESTRIL 20 MG TUBE (08:00)
[2025-03-14] MEDS: PACERONE 200 MG TUBE (08:01)
[2025-03-14] MEDS: ELIQUIS 5 MG PO (08:01)
--- NOTE | 2025-03-14 08:35 | W.PN.NEPH.PH ---
Today's Communication / Plan
-
Follow electrolytes daily
Assessment/Plan
-
Impression:
Acute on chronic euvolemic hyponatremia (126)
Change of mental status
History of depression and anxiety
History of atrial fibrillation
History of hypertension
History of COPD
BPH
Seizure 03/01/25 started and continue to recur despite treatment
Plan:
follow BMP
Sodium 133 decrease free water okay to continue current free water flushes
NG tube in place tolerating tube feeds
Continues to have seizures
Repeat LP 03/11 nondiagnostic

-
-
Date of Service: March 14, 2025
CC / HPI / ROS
-
Chief Complaint:
Hyponatremia
History of Present Illness:
Blood pressure controlled
Na stable 133 after last Samsca dose given on 03/07
Seizure on 03/01, no further events
metabolic acidosis worsened 15
Remains on ketamine infusion and Valproate
Review of Systems:
Nonoliguric via straight cath
no fevers
Unresponsive
NG tube feeds
Labs
-
Labs:
WBC 10.8 10^3/uL (4.8-10.8) 03/14/25 04:04
RBC 4.29 10^6/uL (4.70-6.10) L 03/14/25 04:04
Hgb 13.1 g/dL (13.0-18.0) 03/14/25 04:04
Hct 38.3 % (39.0-52.0) L 03/14/25 04:04
Plt Count 245 10^3/uL (130-400) 03/14/25 04:04
Sodium 133 mmol/L (135-145) L 03/14/25 04:04
Potassium 3.6 mmol/L (3.5-5.1) 03/14/25 04:04
Chloride 107 mmol/L (98-107) 03/14/25 04:04
Carbon Dioxide 19 mmol/L (22-30) L 03/14/25 04:04
BUN 22 mg/dl (9-20) H 03/14/25 04:04
Creatinine 0.8 mg/dL (0.7-1.3) 03/14/25 04:04
eGFR > 60.00 03/14/25 04:04
Glucose 182 mg/dl (70-99) H 03/14/25 04:04
Calcium 9.6 mg/dl (8.4-10.2) 03/14/25 04:04
Phosphorus 4.0 mg/dl (2.5-4.5) 03/03/25 05:56
Albumin 3.7 g/dl (3.5-5.0) 03/07/25 14:13
Physical Exam
-
Vital Signs:
Vital Signs
Temp Pulse Resp BP Pulse Ox
97.1 F 105 14 151/91 98
03/14/25 03:10 03/14/25 08:01 03/14/25 07:35 03/14/25 08:01 03/14/25 07:35
Cardiovascular:: Regular rate and rhythm
Respiratory:: Bilateral: Coarse
Lung Excursion:: Normal
Abdomen:: Nontender
Bowel Sounds:: Decreased
Extremity Edema:: None: Bilateral:
Oneill Catheter: No
Other Findings::
Gen: Poorly responsive
HEENT feeding tube
--- NOTE | 2025-03-14 08:42 | W.PN.CARDCBS ---
Today's Communication / Plan
-
Cardiac status stable
No changes
Impression / Plan
-
PCP Dr. Kathrin Underwood
Cardiology: Dr. KORI Grant, last seen 01/09/2024
Impression:
Admitted with confusion and hyponatremia 02/25/2025
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
Hyponatremia
Recurrence of A-fib with RVR 03/05/2025
Paroxysmal A-fib
Previously not chronically anticoagulated by patient choice
h/o TIA
Hyperlipidemia
h/o Alcohol abuse
Anxiety
Aortic atherosclerosis
Echo 04/11/2023: EF 55 to 60%, stage II diastolic dysfunction, mild MR, mild peak/mean 24/13 mmHg, mild aortic regurgitation
Echo 03/06/25: EF 50%, mild to moderate MR, mild AI, PA pressure 20
Plan:
Unfortunately he is more lethargic today than yesterday, but still arousable.
He remains hemodynamically stable with an acceptable blood pressure and a controlled heart rate in atrial fibrillation. Telemetry is unrevealing.
Continue Eliquis and metoprolol. Continue amiodarone.
If he recovers sufficiently from a neurologic standpoint we will eventually want to reestablish sinus rhythm.
For now continue strategy of rate control and anticoagulation.
Furosemide is on hold, volume status looks good and sodium is close to normal.
HPI 03/06/2025:
Patient was initially admitted on 02/25/2025 with confusion and cardiology is now consulted on 03/06/2025 for recurrence of A-fib first seen on 03/05/2025. Patient was initially admitted on 02/25/2025 with confusion and hyponatremia. Patient has a
history of hyponatremia. At time of admission it was unclear if there was an underlying diagnosis of dementia, a close friend reported there had been increasing changes in forgetfulness and memory lapses, but with the patient's brother who he is
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 Regardless patient had MRI of the brain 02/25/2025 that showed no acute changes and patient was slated for discharge to home, but
then had a rapid response on 03/01/2025 for seizure x 3 that was attributed to benzodiazepine withdrawal. Patient was transferred to [facility] yesterday and later in the day was noted to have a change on telemetry and he was back in [facility].
Progress Note - Furnace Filler
Subjective
Date of Service: March 14, 2025:
Current cardiac medications: Furosemide 20 mg every 48 hours on hold, apixaban 5 mg twice daily, amiodarone 200 mg twice daily via tube, atorvastatin 40 mg a day, lisinopril 20 mg a day, metoprolol tartrate 12.5 via tube, plus nebs, Keppra, Vimpat,
valproate, Topamax
No distress, but more lethargic, mumbles, barely opens eyes when spoken to
151/91, pulse 105, respiratory rate 14, head neck exam with feeding tube, lungs are clear, irregular rate and rhythm, rate is controlled abdomen benign extremities without clubbing cyanosis edema distal pulses intact
Hemoglobin 13.1, white count 10.8, sodium 133, BUN and creatinine are 22 and 0.8
Telemetry: Rate occasionally rapid but still controlled overall
Objective
Labs:
03/14/25 04:04
03/14/25 04:04
Labs
Hgb 13.1 g/dL (13.0-18.0) 03/14/25 04:04
Hct 38.3 % (39.0-52.0) L 03/14/25 04:04
Plt Count 245 10^3/uL (130-400) 03/14/25 04:04
PT 16.4 Sec (11.4-14.6) H 03/08/25 05:27
INR 1.29 03/08/25 05:27
APTT 24.0 Sec (23.4-35.0) 03/01/25 15:29
Sodium 133 mmol/L (135-145) L 03/14/25 04:04
Potassium 3.6 mmol/L (3.5-5.1) 03/14/25 04:04
BUN 22 mg/dl (9-20) H 03/14/25 04:04
Creatinine 0.8 mg/dL (0.7-1.3) 03/14/25 04:04
Glucose 182 mg/dl (70-99) H 03/14/25 04:04
Vital Signs and I&O:
Vital Signs
Temp Pulse Resp BP Pulse Ox
36.2 C 105 14 151/91 98
03/14/25 03:10 03/14/25 08:01 03/14/25 07:35 03/14/25 08:01 03/14/25 07:35
Vital Signs
Temp Pulse Resp BP Pulse Ox
36.2 C 105 14 151/91 98
03/14/25 03:10 03/14/25 08:01 03/14/25 07:35 03/14/25 08:01 03/14/25 07:35
Intake & Output
03/12/25 03/13/25 03/14/25 03/15/25
07:59 07:59 07:59 07:59
Intake Total 2928.1 / 3138.1 1860 / 1860 816.0 / 816.0
Output Total 2290 / 2440 1965 / 1965 1425 / 1425
Balance 638.1 / 698.1 -105 / -105 -609.0 / -609.0
Physical Exam
Physical Exam
See above
[2025-03-14] MEDS: SOLU-MEDROL 258 MG IV (09:40)
[2025-03-14] MEDS: KETAMINE HCL 50 MG IV (10:04)
--- NOTE | 2025-03-14 12:36 | PTCARENOTE ---
pt drowsy , he is oriented to place and has confused conversation , he is A fib on monitor , he is on a continuos EEG , he has continued with ketamine gtt and continues to have some breakthrough seizure activity as per Dr Ortiz , plan for transfer to a "tertiary center for more aggressive seizure management
--- NOTE | 2025-03-14 12:49 | PTCARENOTE ---
pt to transfer to [facility]
--- NOTE | 2025-03-14 13:31 | PTCARENOTE ---
rectal trumpet DC no further stools , pt is to transfer to [place] [id number] [address] room 819 , report given to receiving RN , pt to be transferred by [facility] time 1530 , ketamine gtt to be stopped for transfer as per neurology and
hospitalist
--- NOTE | 2025-03-14 13:46 | CM ---
Patient for discharge to [facility] for acute care specialized services: Neuro ICU. Transport has been scheduled for 3:30PM.
--- NOTE | 2025-03-14 14:00 | W.DCSUMMARY ---
Discharge Summary
Discharge Data
Date of Admission: 02/26/25
Date of Discharge: 03/14/25
Total time spent discharging patient (in min): 65
-
Pending Results: No
Hospital Course
Mr. Chan is an 84-year-old male with a medical history of A-fib (not on anticoagulation per patient choice), hypertension, COPD, TIA, hyponatremia (previously attributed to SIADH/SSRI use), recent memory loss (possible dementia, no formal diagnosis,
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 He was brought to the
emergency department by his friend Bora. Initially his confusion was thought to be secondary to missing a few Xanax doses due to not being able to find his medication. Brain imaging with MRI showed no acute abnormalities. He was mildly
hyponatremic with a serum sodium of 129 which is consistent with his baseline. He was treated with Samsca and fluid restriction per nephrology recommendations. His sodium level stabilized around 132. He had paroxysms of A-fib and was evaluated by
cardiology. He was treated with amiodarone and metoprolol and ultimately started on anticoagulation with Eliquis. He later had multiple seizure episodes and developed status epilepticus. He was started on a ketamine drip and continuous EEG
monitoring. He had a lumbar puncture with CSF studies not indicative of infection. CSF did have elevated protein and so patient was started on high-dose IV steroids for possible autoimmune etiology of his seizures. He was continued on an
antiepileptic regimen of Keppra 1 g IV twice daily, Vimpat 200 mg IV twice daily, valproate 750 mg IV every hours, and Topamax 20 mg via NG tube twice daily. He was weaned from ketamine drip with improvement in his mental status although did not
return completely to baseline. However EEG showed recurrent episodes of status epilepticus. He was therefore titrated back onto ketamine drip. He was followed closely by neurology who recommended transfer to a neuro ICU for more intensive
suppression of his epileptic bursts which would require intubation and mechanical ventilation. This plan was discussed with the patient's brother, Shahram, who is his next of kin. The patient has never been and has no children. His
brother, Shahram, therefore makes medical decisions for him while the patient is incapacitated. The neurology team at [facility] neuro ICU has accepted the patient for transfer.
General: Somnolent, comfortable
HEENT: NormoCephalic, moist mucous membranes, continuous EEG in place
Respiratory: Clear and Non Labored Respirations
Cardiac: irregular rhythm; heart rate around 80
GI: Soft, Non Tender, Non Distended and Normal Bowel Sounds
Musculoskeletal: No Edema, no deformity
: Oneill in place draining clear yellow urine
Neuro: Responsive to touch, currently without tremor
Psych: Unable to assess
Discharge Plan
-
Patient Disposition: Acute Care Hospital
Condition: Fair
Discharge Orders:
Discharge Patient (As Directed); Ordered 03/14/25
Ordered By: Akira Guillaume
Discharge Date and Time
Print Language: IRISH
--- NOTE | 2025-03-14 17:21 | PTCARENOTE ---
pt sent to [place] via ambulance at 17:15 , pt belongs sent with patient including hearing aides , pt niece at bedside and aware of transfer
--- NOTE | 2025-03-16 19:25 | EEGC.RPT ---
Continuous EEG Report
Recording
Start Date of Data Reviewed: 03/13/25
Start Time of Data Reviewed: 07:00
End Date of Data Reviewed: 03/14/25
End Time of Data Reviewed: 07:00
Type of EEG: Continuous
Done with Video Recording: Yes
Study Sequence: Continuation of ongoing Study
Electrocardiogram: Irregularly Irregular
Report
Clinical Background:�84 year old man with seizures
Introduction: continuation of ICU EEG was done using International 10-20 electrode placement protocol.
Meds: include Keppra, Vimpat, valproate, Topamax, Ketamine
Background: continuous generalized low amplitude delta activity with some overriding beta
Sleep: None
Focal/epileptiform: No interictal epileptiform discharges were seen
Seizure: The patient remains in stage 2 status epilepticus consisting of builds up to high amplitude 1.5-2 hz spike/wave or rhythmic delta, and winds down but does not stop. at 9:35 am, the patient receives morning meds, and the seizures zeke
briefly, but by 10:20 the status epilepticus returns. The EEG was disconnected at 12:56 pm for patient to go to CT, and restarted 2:44 pm when he returns. The patient's ketamine drip was restarted 0.7/kg/hr but fail to zeke the seizures. During
this time, the patient is AOx1-2 depending on how bad the seizures are at the moment.
Impression: Stage 2 status epilepticus
== END 2025-03-14 17:41 | disposition short-term general hospital (02) | DRG 644 ==
LOC: ICU 00:08
PROVIDERS: Clinical Nurse Specialist Family Health; Emergency Medicine; Internal Medicine; Nurse Practitioner; Nurse Practitioner Family; Nurse Practitioner Primary Care; Psychiatry & Neurology Clinical Neurophysiology; Psychiatry & Neurology Psychiatry; Radiology Neuroradiology; Radiology Vascular & Interventional Radiology; Specialist; Student in an Organized Health Care Education/Training Program; ADMITTING PHYSICIAN Hospitalist; ATTENDING PHYSICIAN Internal Medicine; CONSULT PHYSICIAN Internal Medicine Cardiovascular Disease; CONSULT PHYSICIAN Internal Medicine Critical Care Medicine; CONSULT PHYSICIAN Internal Medicine Infectious Disease; CONSULT PHYSICIAN Psychiatry & Neurology Neurology; CONSULT PHYSICIAN Psychiatry & Neurology Psychiatry; CONSULT PHYSICIAN Specialist; EMERGENCY PHYSICIAN Emergency Medicine; FAMILY PHYSICIAN Family Medicine
PROC: B01B1ZZ Fluoroscopy of Spinal Cord using Low Osmolar Contrast (ICD-10-PCS; 2025-03-07)
PROC: 009U3ZX Drainage of Spinal Canal, Percutaneous Approach, Diagnostic (ICD-10-PCS; 2025-03-07)
PROC: 0DH67UZ Insertion of Feeding Device into Stomach, Via Natural or Artificial Opening (ICD-10-PCS; 2025-03-10)
DX: E22.2 Syndrome of inappropriate secretion of antidiuretic hormone (principal); E87.20 Acidosis, unspecified; F13.239 Sedative, hypnotic or anxiolytic dependence with withdrawal, unspecified; G93.40 Encephalopathy, unspecified; F03.93 Unspecified dementia, unspecified severity, with mood disturbance; F03.94 Unspecified dementia, unspecified severity, with anxiety; G40.901 Epilepsy, unspecified, not intractable, with status epilepticus; I10 Essential (primary) hypertension; I48.0 Paroxysmal atrial fibrillation; J44.89 Other specified chronic obstructive pulmonary disease; F32.A Depression, unspecified; N40.0 Benign prostatic hyperplasia without lower urinary tract symptoms; I34.0 Nonrheumatic mitral (valve) insufficiency; F10.10 Alcohol abuse, uncomplicated; E87.6 Hypokalemia; K59.09 Other constipation; F41.9 Anxiety disorder, unspecified; H91.90 Unspecified hearing loss, unspecified ear; I70.0 Atherosclerosis of aorta; D64.9 Anemia, unspecified; M19.90 Unspecified osteoarthritis, unspecified site; Z60.2 Problems related to living alone; Z96.653 Presence of artificial knee joint, bilateral; Z79.890 Hormone replacement therapy; Z79.51 Long term (current) use of inhaled steroids; Z87.891 Personal history of nicotine dependence; Z86.73 Personal history of transient ischemic attack (TIA), and cerebral infarction without residual deficits; Z62.810 Personal history of physical and sexual abuse in childhood; Z91.148 Patient's other noncompliance with medication regimen for other reason
CPT/HCPCS: 36600; 62328; 70450; 70551; 70553; 71045; 71260; 74018; 74177; 80048; 80053; 80061; 80164; 81003; 82077; 82607; 82805; 82945; 82962; 83735; 83935; 84100; 84157; 84300; 84443; 84484; 85025; 85027; 85610; 85730; 86780; 86788; 87015; 87070; 87205; 87327; 87483; 89051; 92523; 92526; 92610; 93005; 93306; 94640; 95714; 95813; 96360; 97116; 97129; 97162; 97164; 97166; 99285; A9575; C9254; J7030; Q9967